=== PATIENT | male | born 1940 | race Caucasian/White ===

== ENCOUNTER → 2018-05-03 | Outpatient (CLI) | payer OTHER ==
[~2018-05-03] MED LIST: AMLO5TAB3 PO; ANT25 PO; ASPCH81X PO; ASPEC325 PO; ATV/1 PO; ATV5 PO; CALC600T9 PO; CETI10CH PO; CLB/200 PO; DICL75TA2 PO; DIPH25TA24 PO; HYDR-5688 PO; HYDUNK PO; OMEG10007 PO; OXYSR10 PO; POTA1TAB PO; PRAV20TA PO; PRLSR20 PO; TRAM-10 PO
[2018-05-03 17:41] LABS: HEMOGLOBIN 13.5 g/dL (14.0-18.0); MEAN CELL VOLUME 90.1 fL (80-100); MEAN CORPUSCULAR HEMOGLOBIN 31.2 pg (25-34); MEAN CORPUSCULAR HGB CONC 34.6 g/dl (32-36); MEAN PLATELET VOLUME 10.6 fL (7.4-10.4); PLATELET COUNT 229 K/uL (130-400); RED CELL DISTRIBUTION WIDTH CV 13.9 % (11.5-14.5); RED CELL DISTRIBUTION WIDTH SD 45.6 fL (36.4-46.3); WHITE BLOOD COUNT 7.72 K/uL (4.8-10.8)
[2018-05-03 17:50] LABS: PTT PATIENT 27.3 SECONDS (21.0-31.0)
[2018-05-03 18:01] LABS: BLOOD UREA NITROGEN 27 mg/dl (7-18); CALCIUM 8.8 mg/dl (8.5-10.1); CARBON DIOXIDE 29 mmol/L (21-32); CREATININE 1.12 mg/dl (0.60-1.40); GLUCOSE 94 mg/dl (70-99); POTASSIUM 3.2 mmol/L (3.5-5.1); SODIUM 136 mmol/L (136-145)
== END | disposition home or self-care (01) ==
LOC: C.LAB1850 17:04
PROVIDERS: ATTEND Physician Assistant
DX: Z01.812 Encounter for preprocedural laboratory examination (principal); I10 Essential (primary) hypertension; E78.5 Hyperlipidemia, unspecified; R07.9 Chest pain, unspecified

== ENCOUNTER → 2018-05-10 | Day surgery (SDC) | payer OTHER ==
[~2018-05-10] VITALS: Ht 167.6 cm; Wt 114.0 kg
[~2018-05-10] MED LIST changes: -ASPEC325 PO; -ATV5 PO; -DIPH25TA24 PO; +FENTANYL CITRATE INJ 50 MCG/1 ML 2 ML VIAL ONE; +HEPARIN SOD (PORCINE) 1000 UNIT/ML 10 ML VIAL ONE; -HYDR-5688 PO; +MIDAZOLAM HCL 1 MG/ML 2ML VIAL ONE; +NITROGLYCERIN/D5W 100MCG/ML 20ML SYR ONE; +NiCARDipine HCL INJ 2.5 MG/ML 10 ML AMP ONE; -OXYSR10 PO; -TRAM-10 PO
[2018-05-10 10:35] VITALS: BP 164/79; PULSE 81; TEMP 36.5; O2SAT 94; Ht 167.6 cm; Wt 114.0 kg
--- NOTE | 2018-05-10 10:47 | Pre Sedation Assessment ---
Pre Sedation Assessment General Date of Sedation: May 10, 2018. Vital Signs Past 12 Hours Date Time Temp Pulse Resp B/P (MAP) Pulse Ox O2 Delivery O2 Flow Rate FiO2 05/10/18 10:35 36.5 81 16 164/79 (107) 94 Room Air Review Cardiovascular: regular rate, rhythm, no edema Lungs: chest non-tender, lungs clear Pre-Sedation Airway Assessment Smoking Status: Former Smoker Hx of Sleep Apnea: Yes Hx of difficult intubation: No Short Thick Neck: No Thyro-mental Distance: > 3 Finger Breadths Oral Cavity: WNL Mallampati Classification: Class III ASA Classification: Class III NPO Status Date of Last Intake of Fluids: May 09, 2018 Time of Last Intake of Fluids: 2099 Date of Last Intake of Solids: May 09, 2018 Time of Last Intake of Solids: 2099 Procedure Planning Contraindications for Sedation: None Current Medications Reviewed: Yes Notes The planned sedation has been discussed with the patient. Informed Consent was obtained. I have identified the patient, determined the appropriateness of sedation and have assessed the patient immediately prior to the procedure. All medicine(s) and interventions are by my order.
--- NOTE | 2018-05-10 10:47 | History & Physical Bridge Note ---
H&P Re-Evaluation Bridge Note: I have examined the patient, reviewed the History & Physical and in the interval since the performance of the History & Physical I have noted the following changes of clinical significance: No changes noted
--- NOTE | 2018-05-10 12:10 | Post Sedation Assessment ---
Post Sedation Assessment General Date of Sedation May 10, 2018. Vital Signs: Vital Signs Past 12 Hours Date Time Temp Pulse Resp B/P (MAP) Pulse Ox O2 Delivery O2 Flow Rate FiO2 05/10/18 12:00 80 16 138/64 (88) 98 Room Air 05/10/18 11:50 82 16 138/64 (88) 98 Room Air 05/10/18 11:40 82 16 144/84 (104) 98 Room Air 05/10/18 11:35 93 16 139/81 (100) 98 Room Air 05/10/18 10:35 36.5 81 16 164/79 (107) 94 Room Air Post Procedure Recovery Score Activity: (2) Moves 4 extremities * Respiration: (2) Deep breath/cough Circulation: (2) +/-20% PreAnes Value Consciousness: (2) Fully Awake Oxygen Saturation: (2) > 92% On Room Air Post Anesthesia Score: 10 Discharge Sedation Level of Care: Fast Track Phase II Post Sedation Plan On clinical assessment, the patient appears to have tolerated the sedation without complications. Patient is recovering as anticipated. Patient will continue to be monitored by nursing and may be discharged when sedation discharge criteria are met per below protocol. Upon Completions of procedure and additional 15 minutes continue every 5 minute vital signs and the P.A.R. score; then discharge to a Phase I or Fast Track to Phase II per the following guidelines: * Discharge Patient to appropriate Phase II area if PAR is 8 or greater or return to pre- procedure baseline. The post - procedure orders will be as directed. * If PAR score is less than 8 or not return to pre-procedure baseline then patient will follow Phase I monitoring till PAR is reached for Phase II. The Phase I may be done in procedure room or may call to secure a Phase I area. * If naloxone or flumazenil are used for reversal, hold in Phase I for an additional 60 -120 minutes before discharge to Phase II. Please call the Sedation Physician to re-evaluate and complete post-note for discharge to Phase II area. Do NOT discharge from procedure sedation or Phase 1 until post- sedation evaluation note is complete by procedure /sedation MD Sedation Discharge Instructions to be given to the patient at discharge to home.
--- NOTE | 2018-05-10 12:18 | Cardiac Catheterization ---
Procedure Note Procedure Date May 10, 2018. Pre-Procedure Diagnosis Angina AUC Score 7 Post-Procedure Diagnosis Mild CAD Procedure(s) Performed Coronary Angiography, Left Heart Cath Healthcare Architect Jona Verification Rep(s) Quique Estimated Blood Loss 15 Medication(s) Fentanyl, Heparin, Nicardipine, Nitroglycerin, Versed, Lidocaine 1% Summary of Findings Indication: Suspected ACS Access: 6Fr right radial artery Catheters: Opheim; JL3.5, JR4 Findings: LM - Long vessel with luminal irregularities. LAD - Moderate caliber vessel, 20-30% mid segment disease at take-off of large 2nd diagonal; luminal irregularities in distal segment around apex. - 2nd diagonal with 40% ostial stenosis Circumflex - Moderate caliber vessel, gives off small OM1 and large OM2. No significant disease. RCA - Dominant, large caliber vessel, no significant disease. LVEDP - 3 Arterial Closure: TR Band Summary: 1. Mild to moderate non-obstructive coronary artery disease - 30% Mid LAD at bifurcation of 2nd diagonal with 30-40% ostial stenosis. 2. Normal intracardiac filling pressure Recommendations: Continued ASCVD risk factor modification Evaluate for non-cardiac cause of exertional dyspnea. Hemodynamics Rest Ao: 122/59/88 Final Ao: 136/63/95 LV: 114/3 Recommendations Medical therapy and/or Counseling Specimens None Radiation Exposure (mGy) 1921 Contrast (mls) 45 Fluids (cc crystalloids) 47 Drains none Anesthesia moderate Procedural Complication(s) None Disposition Fr[employer] Ad[employer]er Holding/Recovery ACC Data Cardiac Status Clinical evaluation leading to the procedure CAD Presntation: Unstable angina Anginal Classification: CCS III Heart Failure: No, NYHA Class: CCS I Cardiogenic Shock w/in 24Hrs: No Cardiac Arrest w/in 24Hrs: No Imaging studies past 6 months: No Stress studies past 6 months: No Closure Device Percutaneous Entry Location: Radial Closure Device: Radial Band Recommendations: Medical therapy and/or Counseling Intraprocedure Events Significant Dissection: No Perforation: No
--- NOTE | 2018-05-10 12:22 | Discharge Instructions ---
Discharge Instructions Procedure Procedure Date: May 10, 2018. Reason for Visit: Exertional Chest Pain Ashley. Discharge Discharge Date: May 10, 2018. Discharge Diagnosis: Mild coronary artery disease Last Recorded Wt (Kilograms): 114 Anesthesia Post Anesthesia Instructions: If you have had General Anesthesia or IV Sedation: * Do not drive today. * Resume driving when surgeon permits. * Do not make important decisions or sign legal documents today. * Call surgeon for: 1. Temperature elevations greater than 101 degrees F. 2. Uncontrollable pain. 3. Excessive bleeding. 4. Persistent nausea and vomiting. 5. Medication intolerance (nausea, vomiting or rash). * For nausea and vomiting use only clear liquids such as: tea, soda, bouillon until nausea subsides, then gradually increase diet as tolerated. * If you have any concerns or questions, call your surgeon's office. If physician is unavailable and it is an emergency, call 911 or go to the nearest emergency room. Instructions Activity Recommendations: limitations as noted below Recommended Home Diet: resume previous diet Allergies: Coded Allergies: Alendronate (Unverified Allergy, Unknown, HIVES, 05/10/18) Tamsulosin (Unverified Allergy, Unknown, HIVES, 05/10/18) Lovastatin (Verified Adverse Reaction, Mild, DIZZINESS, 05/15/11) Simvastatin (Verified Adverse Reaction, Mild, DIZZINESS, 05/15/11) Zolpidem (Verified Adverse Reaction, Mild, dizziness, 02/19/14) Follow Up Additional Instructions: ACTIVITY RECOMMENDATIONS: Excess manipulation of the wrist should be avoided for the next 24-48 hours. * No lifting over 2 pounds (approximately a 1/2 gallon of milk) with the utilized arm for 24 hours. * No strenuous activity such as bowling or tennis for 3 days. * Keep the site of the procedure covered with a bandage for 24 hours. *You may shower the day after the procedure. Do not take a tub bath or submerge the puncture site in water for the next 3 days. *Do not operate any motorized equipment for 3 days. SPECIAL CARE INSTRUCTIONS: The site may be slightly bruised and sore following your procedure. Should any of the following occur, contact the Dr. who performed your procedure. 1. Redness/inflammation, swelling, chills, or fever, or colored drainage at procedure site within 3-7 days after your procedure. 2. Coldness, discoloration, ongoing numbness, severe pain, or swelling. Expect mild tingling of hand and tenderness at the puncture site for up to three days. If this persists beyond three days, or other symptoms develop, notify the Dr. who performed your procedure. BLEEDING: If the procedure site on your wrist begins to bleed, do not panic 1. Place 1 or 2 fingers firmly just slightly above the insertion site to stop the bleeding. You may be able to feel your pulse as you hold pressure. 2. Lift your finger after 5 minutes to see if the bleeding has stopped. 3. Once the bleeding has stopped, gently wipe the wrist area clean with a bandage. * If the bleeding from your wrist does not stop after 10 minutes, or if there is a large amount of bleeding or spurting, call 911 (do not drive yourself to the hospital). SKIN IRRITATION: * You may experience some redness and/or swelling in the area where radiation was administered. If any skin irritation occurs, please contact your family physician. FOLLOW UP VISIT: Keep any scheduled doctor appointments. Follow-up with: Follow-up with Dr. Tenorio in 2-3 months [facility] Recommendations: Call your doctor if: * Temperature above 101 degrees * Pain not relieved by pain medicine ordered * There is increased drainage or redness from any incision * You have any unanswered questions or concerns. Your Doctors Instructions noted above were prepared by provider Charles Tenorio. Patient Signature Section: Patient Instructions Signature Page [place] Patient (or Guardian) Signature/Date: I have read and understand the instructions given to me by my caregivers. Caregiver/RN/Doctor Signature/Date: The above-named patient and/or guardian has received patient instructions on this date. + Original Patient Signature Page (only) stays with chart. Please make copy for patient.
[2018-05-10 14:30] VITALS: BP 133/84; PULSE 70; O2SAT 98
== END | disposition home or self-care (01) ==
LOC: C.CATH 09:32
PROVIDERS: ATTEND Internal Medicine Interventional Cardiology
DX: I10 Essential (primary) hypertension (principal); I45.4 Nonspecific intraventricular block; R07.9 Chest pain, unspecified; E78.5 Hyperlipidemia, unspecified; K21.0 Gastro-esophageal reflux disease with esophagitis; G47.33 Obstructive sleep apnea (adult) (pediatric); Z87.891 Personal history of nicotine dependence; Z79.82 Long term (current) use of aspirin; Z88.7 Allergy status to serum and vaccine; Z88.8 Allergy status to other drugs, medicaments and biological substances

== ENCOUNTER 2020-11-09 09:20 | Inpatient (IN) ==
--- NOTE | 2020-11-09 09:37 | Emergency Department Note ---
Impression & Plan Syncope, Vertigo, Ataxia ED Provider Note NAME: LANCE JULIAN JR AGE: 80 SEX: M : 1940 ARRIVES VIA: Ambulance INFORMANT: Patient, ED PROVIDER(S): Haroldo Weber DO CHIEF COMPLAINT: Vertigo HPI: The patient is an 80-year-old male who is a history of atrial fibrillation who presented to the emergency department for an evaluation of weakness and syncope. The patient states that he has been having vertigo symptoms over the course of the last week. He states that he has a history of vertigo in the past but this episode appears much worse. The patient states he is having trouble ambulating and feels though he is walking off balance. He also notices significant nausea as well as room spinning. Yesterday he had an episode of syncope. He states he was getting up to change the temperature in the thermostat and he ended up on the floor. He does not remember any specific syncope but this was not witnessed. The patient denies having a headache at this time. He denies having any weakness in the arms or legs. He also complains of some dizziness upon standing as well as near syncope. The patient is noticed no black or bloody bowel movements. He has no chest pain or difficulty breathing. The patient has an appointment with his doctor this and was going to wait to be seen at that time. He presented today because of the symptoms. The patient arrived via ambulance. ROS: See above HPI for pertinent positives & negatives. A total of 10 systems reviewed and were otherwise negative. PAST MEDICAL HISTORY: See Below PAST SURGICAL HISTORY: See Below FAMILY HISTORY: See Below SOCIAL HISTORY: See Below HOME MEDICATIONS: See Below ALLERGIES: See Below VITALS: See Below PHYSICAL EXAMINATION: GENERAL: Patient is awake alert in no acute distress patient is resting comfor tably and showing no signs of anxiety EYES: The conjunctivae are clear. The pupils are round and reactive. EARS, NOSE, MOUTH AND THROAT: The nose is without any evidence of any deformity. NECK: The neck is nontender and supple. RESPIRATORY: Normal respiratory effort is noted there is no evidence of wheezing rhonchi or rales CARDIOVASCULAR: Irregular rhythm was noted to auscultation. No definite murmur was noted to auscultation. GASTROINTESTINAL: The abdomen is soft. Abdomen is nontender. MUSCULOSKELETAL/EXTREMITIES: There is no evidence of gross deformity full range of motion is noted in the hips and shoulders. SKIN: There is no obvious evidence of any rash. There are no petechiae, pallor or cyanosis noted. NEUROLOGIC: Patient is awake alert and oriented x3 strength is symmetric reinoso llar reflexes are 2+ bilaterally. No facial droop was noted. MEDICAL DECISION MAKING: The patient is an 80-year-old male who presented to the emergency department by ambulance for vertigo and difficulty ambulating. The patient also had a syncopal episode yesterday. He was recently diagnosed with atrial fibrillation and started on blood thinners last month. I discussed the patient's laboratory and radiographic studies with him. He was treated with meclizine in the emergency department. He does not appear to have any definite central vertebrobasilar insufficiency or cause for his vertigo. The patient was attempting to ambulate and appeared to have some difficulty. He was not comfortable being discharged home when he felt that he would not have much support at home if he were to have another syncopal episode or fall. For this reason I [facility] They have agreed to evaluate the patient in the emergency department for further management and disposition. Triage Nursing notes reviewed. Prior medical records reviewed Vital Signs: reviewed and remarkable for no significant abnormalities Differential diagnosis: Benign positional vertigo, dehydration, hypovolemia, anemia, tumor, infection, hypoglycemia, electrolyte abnormalities, cardiac sources, intracerebral event, toxicologic, neurologic, as well as other pathologies. ER treatment provided: See below Diagnostics interpreted by me: ECG: EKG was obtained in the emergency department. My interpretation is atrial fibrillation at 80 bpm. No PVCs were noted. Left bundle branch block pattern was noted. This was compared to a tracing from January 072013. Atrial fibrillation has replaced sinus rhythm compared to the previous tracing. Otherwise no significant changes were noted. Cardiac Monitoring: An order was placed for continuous cardiac monitoring. The m onitor shows a rate of 82 bpm with atrial fibrillation rhythm. Laboratory studies: As stated above and show below. Imaging studies: See below Consultation(s): 1245: I discussed this case with Dr. Samuels who is [facility]. 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 Nonobstructive atherosclerosis of coronary artery 30% mid LAD per 05/2018 cardiac cath done to evaluate OLIVA Obesity Osteoarthritis Prostate cancer Reflux esophagitis Sciatica Skin cancer Both ears - uncertain of type Sleep apnea CPAP Surgical History Difficult airway for intubation H/O GLIDESCOPE 2010 Fatty tumor BACK AND HIP REMOVAL H/O endoscopic sinus surgery H/O Spinal surgery Lumbar spine "Removal of lumbar spine lamina" per pt 1976 H/O total knee replacement Left knee 2004 and right knee 2014 History of bunionectomy Right foot - 2000 History of cardiac cath 05/10/18 History of cataract surgery Bilateral 2007 History of cholecystectomy 1992 History of esophagogastroduodenoscopy (EGD) History of lumbosacral spine surgery History of prostate biopsy History of tooth extraction Hx of colonoscopy Hx of inguinal hernia surgery Right side:2000 S/P repair of hydrocele Left - 1994 S/P UPPP (uvulopalatopharyngoplasty) Family History Mother , at 86yo Breast cancer Bowel cancer Father , 82yo Atherosclerosis Peripheral vascular disease Sister Breast cancer Bowel cancer Cardiac arrhythmia Son No problems noted. Son No problems noted. 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 Beliefs That Will Affect Care: None marital status: Current Living Situation: Spouse current occupational status: retired current occupation: Worked for [employer] Feels Safe at Home: Yes caffeine: Yes (1 cup/day) during the past year weight has: remained stable Assistive Devices: CPAP Allergies Allergies Allergy/AdvReac Type Severity Reaction Status Date / Time finasteride Allergy Severe SOB Verified 11/09/20 10:52 alendronate sodium Allergy Intermediate HIVES Verified 11/09/20 10:52 Ivpzfih-Sbf-Etn Reductase Allergy Intermediate VERTIGO Verified 11/09/20 10:52 Inhibitor tamsulosin Allergy Intermediate HIVES Verified 11/09/20 10:52 adhesive Allergy Unknown Verified 11/09/20 10:52 egg Allergy Unknown Verified 11/09/20 10:52 influenza virus vaccine, Allergy Unknown Verified 11/09/20 10:52 specific zolpidem Allergy Unknown Verified 11/09/20 10:52 Home Meds Home Medications Medication Instructions Recorded Confirmed Zyrtec 1 cap PO QAM 01/20/19 11/09/20 celecoxib [Celebrex] 200 mg PO HS 01/20/19 11/09/20 omeprazole 20 mg PO HS 01/20/19 11/09/20 pravastatin 40 mg PO BID 01/20/19 11/09/20 zinc 50 mg PO QAM 01/20/19 11/09/20 ascorbic acid (vitamin C) 500 mg 1,000 mg PO QAM tab 06/13/19 11/09/20 tablet,extended release cholecalciferol (vitamin D3) 25 2,000 units PO QAM tab 06/13/19 11/09/20 mcg (1,000 unit) tablet omega 7-ymy-zgr-fish oil 1,000 mg 1 cap PO QAM cap 06/13/19 11/09/20 (120 mg-180 mg) capsule vitamin E (dl, acetate) 400 unit 400 units PO QAM 12/05/19 11/09/20 capsule alfuzosin 10 mg PO QAM 11/09/20 11/09/20 calcium carbonate-vitamin D3 1 tab PO QAM 11/09/20 11/09/20 [Calcium 600 + D(3)] cyanocobalamin (vitamin B-12) 2,500 mcg SUBLINGUAL QAM 11/09/20 11/09/20 [Vitamin B-12] Previous Rx's Medication Instructions Recorded amlodipine 10 mg tablet 10 mg PO QAM #90 tab 05/25/20 potassium chloride 20 mEq 20 meq PO QAM #90 tab 09/15/20 tablet,extended release meclizine 25 mg tablet 25 mg PO DAILY PRN #30 tab 09/23/20 apixaban 5 mg tablet 5 mg PO BID #60 tab 10/05/20 hydrochlorothiazide 25 mg tablet 25 mg PO QAM #90 tab 10/05/20 Results & Data (ED) Vital Signs Vital Signs - 24 hr 11/09/20 09:23 11/09/20 09:25 11/09/20 09:27 Temperature 36.9 C Temperature Source Oral Pulse Rate 80 79 82 Pulse Rate [Left] Pulse Rate from SpO2 Sensor Pulse Rhythm Regular Pulse Rhythm [Left] Pulse Strength Normal Pulse Strength [Left] Respiratory Rate 18 21 14 Respiratory Effort / Characteristics Non-Labored Spontaneous Respiratory Depth Normal Respiratory Pattern Regular Blood Pressure 146/62 H 146/62 H Blood Pressure [Left Arm] Blood Pressure Mean 90 90 Blood Pressure Mean [Left Arm] Blood Pressure Position Lying Blood Pressure Position [Left Arm] Pulse Oximetry 97 Oxygen Delivery Method Room Air Sepsis Recent Fever Within 48 Hours No Sepsis New/Unexplained Change in Mental Status N/A Sepsis Action Taken by Nursing No Action Required 11/09/20 09:30 11/09/20 10:00 11/09/20 10:25 Temperature Temperature Source Pulse Rate 77 68 73 Pulse Rate [Left] Pulse Rate from SpO2 Sensor 74 69 72 Pulse Rhythm Pulse Rhythm [Left] Pulse Strength Pulse Strength [Left] Respiratory Rate 19 16 19 Respiratory Effort / Characteristics Respiratory Depth Respiratory Pattern Blood Pressure 134/69 131/78 141/70 H Blood Pressure [Left Arm] Blood Pressure Mean 90 95 93 Blood Pressure Mean [Left Arm] Blood Pressure Position Blood Pressure Position [Left Arm] Pulse Oximetry 97 97 94 Oxygen Delivery Method Sepsis Recent Fever Within 48 Hours Sepsis New/Unexplained Change in Mental Status Sepsis Action Taken by Nursing 11/09/20 10:26 11/09/20 10:30 11/09/20 11:00 Temperature Temperature Source Pulse Rate 73 71 Pulse Rate [Left] 73 Pulse Rate from SpO2 Sensor 77 Pulse Rhythm Pulse Rhythm [Left] Regular Pulse Strength Pulse Strength [Left] Normal Respiratory Rate 18 14 18 Respiratory Effort / Characteristics Non-Labored Spontaneous Respiratory Depth Normal Respiratory Pattern Blood Pressure 130/83 Blood Pressure [Left Arm] 141/70 H Blood Pressure Mean 98 Blood Pressure Mean [Left Arm] 93 Blood Pressure Position Blood Pressure Position [Left Arm] Lying Pulse Oximetry 95 96 Oxygen Delivery Method Room Air Sepsis Recent Fever Within 48 Hours Sepsis New/Unexplained Change in Mental Status Sepsis Action Taken by Nursing 11/09/20 11:30 11/09/20 12:00 11/09/20 12:30 Temperature Temperature Source Pulse Rate 71 67 77 Pulse Rate [Left] 83 Pulse Rate from SpO2 Sensor Pulse Rhythm Pulse Rhythm [Left] Pulse Strength Pulse Strength [Left] Respiratory Rate 17 16 16 Respiratory Effort / Characteristics Respiratory Depth Respiratory Pattern Blood Pressure Blood Pressure [Left Arm] 133/81 Blood Pressure Mean Blood Pressure Mean [Left Arm] 98 Blood Pressure Position Blood Pressure Position [Left Arm] Pulse Oximetry 97 Oxygen Delivery Method Room Air Sepsis Recent Fever Within 48 Hours Sepsis New/Unexplained Change in Mental Status Sepsis Action Taken by Nursing 11/09/20 13:00 Temperature Temperature Source Pulse Rate 73 Pulse Rate [Left] Pulse Rate from SpO2 Sensor Pulse Rhythm Pulse Rhythm [Left] Pulse Strength Pulse Strength [Left] Respiratory Rate 16 Respiratory Effort / Characteristics Respiratory Depth Respiratory Pattern Blood Pressure Blood Pressure [Left Arm] Blood Pressure Mean Blood Pressure Mean [Left Arm] Blood Pressure Position Blood Pressure Position [Left Arm] Pulse Oximetry Oxygen Delivery Method Sepsis Recent Fever Within 48 Hours Sepsis New/Unexplained Change in Mental Status Sepsis Action Taken by Detention Medications Current Medication List: was personally reviewed by me Laboratory Data Attestation: I reviewed the patient's lab results. Result diagrams: 11/09/20 09:29 11/09/20 09:30 Lab Results 11/09/20 11/09/20 11/09/20 Range/Units 09:29 09:29 09:30 WBC 7.33 (4.8-10.8) K/uL RBC 3.98 L (4.7-6.1) M/uL Hgb 12.7 L (14.0-18.0) g/dL Hct 36.6 L (42-52) % MCV 92.0 (80-100) fL MCH 31.9 (25-34) pg MCHC 34.7 (32-36) g/dL RDW Std Deviation 47.9 H (36.4-46.3) fL RDW Coeff of Mauri 14.2 (11.5-14.5) % Plt Count 209 (130-400) K/uL MPV 10.6 H (7.4-10.4) fL Immature Gran % (Auto) 0.1 % Neut % (Auto) 78.3 % Lymph % (Auto) 12.7 % [place] % (Auto) 7.2 % Eos % (Auto) 1.6 % Baso % (Auto) 0.1 % Neut # (Auto) 5.73 (1.4-6.5) K/uL Lymph # (Auto) 0.93 L (1.2-3.4) K/uL [place] # (Auto) 0.53 (0.11-0.59) K/uL Eos # (Auto) 0.12 (0-0.5) K/uL Baso # (Auto) 0.01 (0-0.2) K/uL Immature Gran # (Auto) 0.01 (0.00-0.02) K/uL PT 10.9 (9.0-12.0) Seconds INR 1.0 (0.9-1.1) APTT 30.0 (21.0-31.0) Seconds PTT Ratio 1.1 Sodium 140 (136-145) mmol/L Potassium 3.4 L (3.5-5.1) mmol/L Chloride 106 (98-107) mmol/L Carbon Dioxide 27 (21-32) mmol/L Anion Gap 7.0 (3-11) BUN 25 H (7-18) mg/dl Creatinine 1.11 (0.6-1.4) mg/dl Est Cr Clr Drug Dosing 62.9 ml/min Est GFR ( Amer) 71.8 Est GFR (Non-Af Amer) 61.9 BUN/Creatinine Ratio 22.4 H (10-20) Glucose 120 H (70-99) mg/dl Calcium 9.4 (8.5-10.1) mg/dl Magnesium 2.0 (1.8-2.4) mg/dl Total Bilirubin 0.4 (0.2-1) mg/dl AST 16 (15-37) U/L ALT 25 (12-78) U/L Alkaline Phosphatase 110 (45-117) U/L Troponin I < 0.015 (0-0.045) ng/ml Total Protein 7.3 (6.4-8.2) gm/dl Albumin 3.5 (3.4-5.0) gm/dl Globulin 3.8 (2.5-4.0) gm/dl Albumin/Globulin Ratio 0.9 (0.9-2) COVID-19 Eval Order SARS-CoV-2, RNA, NAAT (NEGATIVE) 11/09/20 11/09/20 Range/Units 13:00 13:00 WBC (4.8-10.8) K/uL RBC (4.7-6.1) M/uL Hgb (14.0-18.0) g/dL Hct (42-52) % MCV (80-100) fL MCH (25-34) pg MCHC (32-36) g/dL RDW Std Deviation (36.4-46.3) fL RDW Coeff of Mauri (11.5-14.5) % Plt Count (130-400) K/uL MPV (7.4-10.4) fL Immature Gran % (Auto) % Neut % (Auto) % Lymph % (Auto) % [place] % (Auto) % Eos % (Auto) % Baso % (Auto) % Neut # (Auto) (1.4-6.5) K/uL Lymph # (Auto) (1.2-3.4) K/uL [place] # (Auto) (0.11-0.59) K/uL Eos # (Auto) (0-0.5) K/uL Baso # (Auto) (0-0.2) K/uL Immature Gran # (Auto) (0.00-0.02) K/uL PT (9.0-12.0) Seconds INR (0.9-1.1) APTT (21.0-31.0) Seconds PTT Ratio Sodium (136-145) mmol/L Potassium (3.5-5.1) mmol/L Chloride (98-107) mmol/L Carbon Dioxide (21-32) mmol/L Anion Gap (3-11) BUN (7-18) mg/dl Creatinine (0.6-1.4) mg/dl Est Cr Clr Drug Dosing ml/min Est GFR ( Amer) Est GFR (Non-Af Amer) BUN/Creatinine Ratio (10-20) Glucose (70-99) mg/dl Calcium (8.5-10.1) mg/dl Magnesium (1.8-2.4) mg/dl Total Bilirubin (0.2-1) mg/dl AST (15-37) U/L ALT (12-78) U/L Alkaline Phosphatase (45-117) U/L Troponin I (0-0.045) ng/ml Total Protein (6.4-8.2) gm/dl Albumin (3.4-5.0) gm/dl Globulin (2.5-4.0) gm/dl Albumin/Globulin Ratio (0.9-2) COVID-19 Eval Order Covid19 [facility]Now [facility] SARS-CoV-2, RNA, NAAT NEGATIVE (NEGATIVE) Administered Medications Discontinued Medications Ioversol (Optiray 320 125ml) 120 ml IV ONCE ONE Stop: 11/09/20 10:16 Last Admin: 11/09/20 10:15 Dose: 120 ml Documented by: [id number] Meclizine HCl (Meclizine Hcl 25 Mg Tab) 25 mg PO NOW STA Stop: 11/09/20 10:47 Last Admin: 11/09/20 11:07 Dose: 25 mg Documented by: [id number] Imaging Data Radiologist's Impression: Patient: LANCE JULIAN JR Admit Date: 11/09/20 MR#: [id number] Address1: [address] [place] [address] [address] Acct ID:[id number] Address2: Date: 1940 [facility] Zip: [place] [address] Age: 80 Location: ED Sex: M Room/Bed: Att Phy: Diagnosis: weakness Paulette Phy: Eliu Manriquez DO Service Date: 11/09/20 Fam Phy: Interpreting Phy: Harjeet Jacques MD Admit Phy: Ordering Phy: Haroldo Weber DO cc: ~ CT ANGIOGRAPHY OF THE NECK WITH CONTRAST CLINICAL HISTORY: Stroke Like Symptoms COMPARISON STUDY: No previous studies for comparison. Technique: CT angiography of the carotid and vertebral arteries was obtained using Optiray 320 IV and 3D reconstruction on an independent workstation. NASCET criteria was utilized. Automated exposure control was utilized for the study. A dose lowering technique was utilized adhering to the principles of ALARA. CT DOSE: 1468.09 mGy.cm Findings: The bilateral common carotid, cervical internal carotid and vertebral arteries are patent. There is no stenosis within these vessels. Moderate plaque is noted within the aortic arch and the bilateral carotid bifurcations. There is no intraluminal thrombus. Left vertebral artery is dominant. Right vertebral artery is diminutive on a congenital basis. The right vertebral artery ends in PICA. Emphysema is noted within the lung apices. There is no cervical lymphadenopathy. Multilevel degenerative changes within the cervical spine are noted. No acute fractures identified. IMPRESSION: 1. No stenosis or dissection within the major vessels of the neck. 2. Mild to moderate atherosclerotic plaque. 3. Emphysema ACT 112: Negative or not required by law. Electronically signed by: Harjeet Jacques M.D. 11/09/2020 10:34 AM Dictated: 11/09/20 1028 Transcribed: 11/09/20 1028 Patient: LANCE JULIAN JR Admit Date: 11/09/20 MR#: [id number] Address1: [address] Acct ID:[id number] Address2: Date: 1940 [facility] Zip: [place] [address] Age: 80 Location: ED Sex: M Room/Bed: Att Phy: Diagnosis: weakness Paulette Phy: Eliu Manriquez DO Service Date: 11/09/20 Fam Phy: Interpreting Phy: Joseph Siddiqui MD Admit Phy: Ordering Phy: Haroldo Weber DO cc: ~ HEAD CTA HISTORY: Stroke Like Symptoms TECHNIQUE: Multiaxial CT images of the head were performed following the intravenous administration of contrast to evaluate the major cerebral vessels. Maximum intensity projection images were also obtained. A dose lowering technique was utilized adhering to the principles of ALARA. COMPARISON: None. FINDINGS: Hypoplastic distal right vertebral artery in comparison to the left. The distal right vertebral artery terminates into the right posterior inferior cerebellar artery. This is considered to be a normal variant. The major dural venous sinuses appear patent. Mild calcified plaque within the bilateral carotid siphons. Dominant left RONEN. Visualized intracranial internal carotid arteries, distal vertebral arteries, and basilar artery are widely patent. There is no significant stenosis, occlusion, or aneurysm seen within the bilateral ACAs, MCAs, or technical adjuster. IMPRESSION: No significant stenosis, occlusion, or aneurysm within the atka of Ravi. ACT 112: Negative or not required by law. Electronically signed by: Joseph Siddiqui M.D. 11/09/2020 10:34 AM Dictated: 11/09/20 1028 Transcribed: 11/09/20 1028 Patient: LANCE JULIAN JR Admit Date: 11/09/20 MR#: [id number] Address1: [address] Acct ID:[id number] Address2: Date: 1940 [facility] Zip: [place] [address] Age: 80 Location: ED Sex: M Room/Bed: Att Phy: Diagnosis: weakness Paulette Phy: Eliu Manriquez DO Service Date: 11/09/20 Isac Phy: Interpreting Phy: Yasir Richard Admit Phy: Ordering Phy: Haroldo Weber DO cc: ~ CT head/brain wo con CLINICAL HISTORY: 80 years-old Male with Stroke Like Symptoms. Acute strokelike symptoms TECHNIQUE: Multiple axial CT images of the head were obtained without contrast. A dose lowering technique was utilized adhering to the principles of ALARA. COMPARISON: CTA head and neck of same day, bone scan 09/12/2018. FINDINGS: No acute intracranial hemorrhage, midline shift, intracranial mass, hydrocephalus, territorial ischemia or abnormal extra-axial collection. Mild age-related involutional changes. The calvarium is intact. Left mastoid air cells are clear. Right mastoid effusion. Partial ethmoidectomy changes. Unremarkable soft tissues. Prior bilateral lens replacement. IMPRESSION: No acute intracranial abnormality. ACT 112: Negative or not required by law. The above report was generated using voice recognition software. It may contain grammatical, syntax or spelling errors. Electronically signed by: Sae Richard M.D. 11/09/2020 10:33 AM Dictated: 11/09/20 1026 Transcribed: 11/09/20 1026 Patient: LANCE JULIAN JR Admit Date: 11/09/20 MR#: [id number] Address1: [address] [place] [address] [address] Acct ID:[id number] Address2: Date: 1940 [facility] Zip: [place] [address] Age: 80 Location: ED Sex: M Room/Bed: Att Phy: Diagnosis: weakness Paulette Phy: Eliu Manriquez DO Service Date: 11/09/20 Isac Phy: Interpreting Phy: Harjeet Jacques MD Admit Phy: Ordering Phy: Haroldo Weber DO cc: ~ XR chest 1V portable CLINICAL HISTORY: Stroke Like Symptoms COMPARISON STUDY: Chest radiograph January 22, 2019. FINDINGS: Lung volumes are normal. There is no pneumothorax or pleural effusion. Note is made of cardiomegaly. There is no evidence for pulmonary edema. No consolidation is identified. IMPRESSION: No acute cardiopulmonary findings. Cardiomegaly. ACT 112: Negative or not required by law. Electronically signed by: Harjeet Jacques M.D. 11/09/2020 9:44 AM Dictated: 11/09/20942 Transcribed: 11/09/20942 Blood Pressure Blood Pressure Findings: Normal blood pressure Discharge Plan Visit Data Chief Complaint: Weakness ED Provider: Haroldo Wbeer Discharge Problem: Syncope, Vertigo, Ataxia Patient Disposition: Being Evaluated by Hospitalist Condition: Good Forms Stand Alone Forms: [facility] Prescriptions Prescriptions: No Action ascorbic acid (vitamin C) 500 mg tablet extended release 1,000 mg PO QAM RF: 0 vitamin E (dl, acetate) 400 unit capsule 400 units PO QAM RF: 0 amlodipine 10 mg tablet 10 mg PO QAM Qty: 90 RF: 3 potassium chloride 20 mEq tablet extended release 20 meq PO QAM Qty: 90 RF: 3 hydrochlorothiazide 25 mg tablet 25 mg PO QAM Qty: 90 RF: 3 Eliquis 5 mg tablet 5 mg PO BID Qty: 60 RF: 2 meclizine 25 mg tablet 25 mg PO DAILY PRN (Reason: Vertigo) Qty: 30 RF: 0 cyanocobalamin (vitamin B-12) [Vitamin B-12] 2,500 mcg Tablet, Sublingual 2,500 mcg SUBLINGUAL QAM RF: 0 calcium carbonate-vitamin D3 [Calcium 600 + D(3)] 600 mg(1,500mg) -200 unit Tablet 1 tab PO QAM RF: 0 alfuzosin 10 mg tablet extended release 24 hr 10 mg PO QAM RF: 0 celecoxib [Celebrex] 200 mg Capsule 200 mg PO HS RF: 0 pravastatin 40 mg Tablet 40 mg PO BID RF: 0 zinc 50 mg Tablet 50 mg PO QAM RF: 0 omeprazole 20 mg Tablet,Delayed Release (Dr/Ec) 20 mg PO HS RF: 0 Zyrtec 10 mg Capsule 1 cap PO QAM RF: 0 cholecalciferol (vitamin D3) [Vitamin D3] 1,000 unit (25 mcg) tablet 2,000 units PO QAM RF: 0 omega 8-lkj-jzi-fish oil [Fish Oil] 1,000 mg (120 mg-180 mg) capsule 1 cap PO QAM RF: 0 Referrals Referrals: Eliu Manriquez DO [Primary Care Provider] -
[2020-11-09 09:38] LABS: Basophils # (auto) 0.01 K/uL (0-0.2); Basophils % (auto) 0.1 %; Eosinophils # (auto) 0.12 K/uL (0-0.5); Eosinophils % (auto) 1.6 %; Hematocrit (blood only) 36.6 % (42-52); Hemoglobin 12.7 g/dL (14.0-18.0); Immature Granulocytes # (auto) 0.01 K/uL (0.00-0.02); Immature Granulocytes % (auto) 0.1 %; Lymphocytes # (auto) 0.93 K/uL (1.2-3.4); Lymphocytes % (auto) 12.7 %; Mean Corpuscular Hemoglobin 31.9 pg (25-34); Mean Corpuscular Hgb Conc 34.7 g/dL (32-36); Mean Platelet Volume 10.6 fL (7.4-10.4); Monocytes # (auto) 0.53 K/uL (0.11-0.59); Monocytes % (auto) 7.2 %; Neutrophils # (auto) 5.73 K/uL (1.4-6.5); Neutrophils % (auto) 78.3 %; Platelet Count 209 K/uL (130-400); RDW Coefficient of Variation 14.2 % (11.5-14.5); RDW Standard Deviation 47.9 fL (36.4-46.3); Red Blood Count 3.98 M/uL (4.7-6.1); White Blood Count 7.33 K/uL (4.8-10.8)
--- NOTE | 2020-11-09 09:46 | XRay Report ---
XR chest 1V portable CLINICAL HISTORY: Stroke Like Symptoms COMPARISON STUDY: Chest radiograph January 22, 2019. FINDINGS: Lung volumes are normal. There is no pneumothorax or pleural effusion. Note is made of card iomegaly. There is no evidence for pulmonary edema. No consolidation is identified. IMPRESSION: No acute cardiopulmonary findings. Cardiomegaly. ACT 112: Negative or not required by law. Electronically signed by: Harjeet Jacques M.D. 11/09/2020 9:44 AM
[2020-11-09 09:55] LABS: Alanine Aminotransferase 25 U/L (12-78); Albumin Level 3.5 gm/dl (3.4-5.0); Aspartate Aminotransferase 16 U/L (15-37); BUN Creatinine Ratio 22.4 (10-20); Blood Urea Nitrogen 25 mg/dl (7-18); Calcium 9.4 mg/dl (8.5-10.1); Carbon Dioxide 27 mmol/L (21-32); Chloride 106 mmol/L (98-107); Creatinine Clr Calc Pharmacy 62.9 ml/min; Est GFR (African American) 71.8; Est GFR (Non-African American) 61.9; Glucose 120 mg/dl (70-99); Potassium 3.4 mmol/L (3.5-5.1); Sodium 140 mmol/L (136-145)
[2020-11-09 09:58] LABS: Partial Thromboplastin Ratio 1.1; Prothrombin Time 10.9 Seconds (9.0-12.0)
[2020-11-09 10:00] LABS: Albumin Globulin Ratio 0.9 (0.9-2); Alkaline Phosphatase 110 U/L (45-117); Bilirubin,Total 0.4 mg/dl (0.2-1); Globulin 3.8 gm/dl (2.5-4.0); Total Protein 7.3 gm/dl (6.4-8.2); Troponin I < 0.015 ng/ml (0-0.045)
[2020-11-09] MEDS ORDERED: OPTIRAY 320 125ml IV ONE (10:15)
--- NOTE | 2020-11-09 10:34 | CT Scan Report ---
CT head/brain wo con CLINICAL HISTORY: 80 years-old Male with Stroke Like Symptoms. Acute strokelike symptoms TECHNIQUE: Multiple axial CT images of the head were obtained without contrast. A dose lowering tech nique was utilized adhering to the principles of ALARA. COMPARISON: CTA head and neck of same day, bone scan 09/12/2018. FINDINGS: No acute intracranial hemorrhage, midline shift, intracranial mass, hydrocephalus, territorial ischem ia or abnormal extra-axial collection. Mild age-related involutional changes. The calvarium is intact. Left mastoid air cells are clear. Right mastoid effusion. Partial ethmoidec deuce changes. Unremarkable soft tissues. Prior bilateral lens replacement. IMPRESSION: No acute intracranial abnormality. ACT 112: Negative or not required by law. The above report was generated using voice recognition software. It may contain grammatical, syntax o r spelling errors. Electronically signed by: Sae Richard M.D. 11/09/2020 10:33 AM
--- NOTE | 2020-11-09 10:35 | CT Scan Report ---
CT ANGIOGRAPHY OF THE NECK WITH CONTRAST CLINICAL HISTORY: Stroke Like Symptoms COMPARISON STUDY: No previous studies for comparison. Technique: CT angiography of the carotid and vertebral arteries was obtained using [employer] 320 IV and 3D reconstruction on an independent workstation. NASCET criteria was utilized. Automated exposure c ontrol was utilized for the study. A dose lowering technique was utilized adhering to the principles of ALARA. CT DOSE: 1468.09 mGy.cm Findings: The bilateral common carotid, cervical internal carotid and vertebral arteries are patent. There is no stenosis within these vessels. Moderate plaque is noted within the aortic arch and the bi lateral carotid bifurcations. There is no intraluminal thrombus. Left vertebral artery is dominant. R ight vertebral artery is diminutive on a congenital basis. The right vertebral artery ends in PICA. E mphysema is noted within the lung apices. There is no cervical lymphadenopathy. Multilevel degenerati ve changes within the cervical spine are noted. No acute fractures identified. IMPRESSION: 1. No stenosis or dissection within the major vessels of the neck. 2. Mild to moderate atherosclerotic plaque. 3. Emphysema ACT 112: Negative or not required by law. Electronically signed by: Harjeet Jacques M.D. 11/09/2020 10:34 AM
--- NOTE | 2020-11-09 10:36 | CT Scan Report ---
HEAD CTA HISTORY: Stroke Like Symptoms TECHNIQUE: Multiaxial CT images of the head were performed following the intravenous administration o f contrast to evaluate the major cerebral vessels. Maximum intensity projection images were also obta ined. A dose lowering technique was utilized adhering to the principles of ALARA. COMPARISON: None. FINDINGS: Hypoplastic distal right vertebral artery in comparison to the left. The distal right verte bral artery terminates into the right posterior inferior cerebellar artery. This is considered to be a normal variant. The major dural venous sinuses appear patent. Mild calcified plaque within the bila teral carotid siphons. Dominant left RONEN. Visualized intracranial internal carotid arteries, distal v ertebral arteries, and basilar artery are widely patent. 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 IMPRESSION: No significant stenosis, occlusion, or aneurysm within the [place] of Ravi. ACT 112: Negative or not required by law. Electronically signed by: Joseph Siddiqui M.D. 11/09/2020 10:34 AM
[2020-11-09] MEDS ORDERED: MECLIZINE HCL 25 MG TAB PO STA (10:46)
--- NOTE | 2020-11-09 12:34 | History & Physical Report ---
Date of Service November 09, 2020 Assessment & Plan (1) Vertigo: Mr. Schroeder is an 80 year old male with a history of Hypertension, Hyperlipidemia, Chronic LBBB, Mild CAD on Cardiac Catheterization 05/2018, JONAH s/p UPPP, GERD, Prostate Cancer, Osteoarthritis, and recently diagnosed Atrial Fibrill ation(09/2020) who presented to [facility] ER with Vertigo over the past 2 to 3 weeks which most likely represents BPPV, however he does exhibit slow and unsure movement on finger to nose testing. This appears to be symmetric. He describes the"room spinning" when he changes body position or suddenly changes his head position. He initially had just woken up and was turning to get up and out of bed. He states that he has trouble walking in a straight line. The other day, he changed the setting on the thermostat, and when he turned to walk away he experience significant vertigo which caused him to fall onto his right side. He has an abrasion on his right elbow and his right lower chest and upper abdomen are sore, although there is no evidence of bruising. Patient denies any syncope, near-syncope, lightheadedness, or loss of consciousness. 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 In the past, he was prescribed meclizine for his vertigo. He has been using meclizine once daily over the past several days, and his vertigo gets better, but does not completely resolve with meclizine. -- Admit to Med-Surg with telemetry. -- Recommend MRI of the Brain to rule out cerebellar CVA. -- Continue Meclizine 25 mg q6H as needed for vertigo. -- Neurology consultation ordered. -- Neuro checks. -- Fall precautions. -- Physical therapy evaluation and treatment, Dx Vertigo. (2) Unspecified atrial fibrillation: -- Patient was diagnosed with Atrial Fibrillation in September 2020. -- Asymptomatic and rate controlled. -- Eliquis 5 mg b.i.d. was started 4 weeks ago. -- [id number] is 3. -- Patient has not missed any doses of his blood thinner. (3) Hypertension: -- Blood pressure appears to be under reasonable control. -- Continue Amlodipine 10 mg daily. -- Continue Hydrochlorothiazide 25 mg daily. -- Give extra dose of Potassium Chloride today due to mild hypokalemia. (4) Hyperlipidemia: -- Continue Pravastatin 40 mg b.i.d.. -- Heart healthy diet. History of Present Illness Chief Complaint: -- Vertigo. Primary Care Provider: Eliu Manriquez DO Mr. Schroeder is an 80 year old male with a history of Hypertension, Hyperlipidemia, Chronic LBBB, Mild CAD on Cardiac Catheterization 05/2018, JONAH s/p UPPP, GERD, Prostate Cancer, Osteoarthritis, and recently diagnosed Atrial Fibrillation(09/2020) who presented to [facility] ER with vertigo over the past 2 to 3 weeks. He describes the"room spinning" when he changes body position or suddenly changes his head position. He initially had just woken up and was turning to get up and out of bed. He states that he has trouble walking in a straight line. The other day, he changed the setting on the thermostat, and when he turned to walk away he experience significant vertigo which caused him to fall onto his right side. He has an abrasion on his right elbow when his right lower chest and upper abdomen are sore, although there is no evidence of bruising. Patient denies any syncope, near-syncope, lightheadedness, or loss of consciousness. 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 In the past, he was prescribed meclizine for his vertigo. He has been using meclizine once daily over the past several days, and his vertigo gets better, but does not completely resolve with meclizine. Patient was done fibrillation in September 2020. He was asymptomatic with it, and his heart rate was well controlled. He was started on Eliquis approximately 4 weeks ago due to his elevated [id number] of 3. Patient has not missed any doses of his blood thinner. As a matter fact, he was concerned that the blood thinner may be causing his vertigo. I have reassured him that is not the case. Patient offers no other complaints. He denies any headache, stiff neck, visual disturbance, blind spots, black spots, loss of visual calderon. He denies any weakness, numbness, tingling, or paralysis of any extremities. He has not had any loss an bowel or bladder control. He does admit to hearing loss due to working with loud machinery in the past. He does not have any recent hearing loss, and he denies any tinnitus. He denies any upper respiratory tract symptoms. He denies any chest pain or shortness of breath. He does admit to an occasional skipped heartbeat, but does not have any sensation of palpitations otherwise, nor has he had any perceived tachy-palpitations. Patient does admit to being under a lot of stress lately. He is taking care of his who has hypercapnic respiratory failure. She has been in an out of the hospital and rehabilitation facilities lately. Allergies Allergy/AdvReac Type Severity Reaction Status Date / Time finasteride Allergy Severe SOB Verified 11/09/20 10:52 alendronate sodium Allergy Intermediate HIVES Verified 11/09/20 10:52 Rfulvol-Elm-Pxz Reductase Allergy Intermediate VERTIGO Verified 11/09/20 10:52 Inhibitor tamsulosin Allergy Intermediate HIVES Verified 11/09/20 10:52 adhesive Allergy Unknown Verified 11/09/20 10:52 egg Allergy Unknown Verified 11/09/20 10:52 influenza virus vaccine, Allergy Unknown Verified 11/09/20 10:52 specific zolpidem Allergy Unknown Verified 11/09/20 10:52 Home Medications Medication Instructions Recorded Confirmed Type Zyrtec 1 cap PO QAM 01/20/19 11/09/20 History celecoxib [Celebrex] 200 mg PO HS 01/20/19 11/09/20 History omeprazole 20 mg PO HS 01/20/19 11/09/20 History pravastatin 40 mg PO BID 01/20/19 11/09/20 History zinc 50 mg PO QAM 01/20/19 11/09/20 History ascorbic acid (vitamin C) 500 mg 1,000 mg PO QAM tab 06/13/19 11/09/20 History tablet,extended release cholecalciferol (vitamin D3) 25 2,000 units PO QAM tab 06/13/19 11/09/20 History mcg (1,000 unit) tablet omega 6-mcu-ftu-fish oil 1,000 mg 1 cap PO QAM cap 06/13/19 11/09/20 History (120 mg-180 mg) capsule vitamin E (dl, acetate) 400 unit 400 units PO QAM 12/05/19 11/09/20 History capsule amlodipine 10 mg tablet 10 mg PO QAM #90 tab 05/25/20 11/09/20 Rx potassium chloride 20 mEq 20 meq PO QAM #90 tab 09/15/20 11/09/20 Rx tablet,extended release apixaban 5 mg tablet 5 mg PO BID #60 tab 10/05/20 11/09/20 Rx hydrochlorothiazide 25 mg tablet 25 mg PO QAM #90 tab 10/05/20 11/09/20 Rx alfuzosin 10 mg PO QAM 11/09/20 11/09/20 History calcium carbonate-vitamin D3 1 tab PO QAM 11/09/20 11/09/20 History [Calcium 600 + D(3)] cyanocobalamin (vitamin B-12) 2,500 mcg SUBLINGUAL QAM 11/09/20 11/09/20 History [Vitamin B-12] amoxicillin-pot clavulanate 1 tab PO BID #20 tab 11/10/20 Rx [Augmentin] fluticasone propionate [Flonase 1 spray INTRANASAL BID #9.9 ml 11/10/20 Rx Allergy Relief] meclizine 25 mg PO BID PRN #30 tab 11/10/20 Rx 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 Nonobstructive atherosclerosis of coronary artery 30% mid LAD per 05/2018 cardiac cath done to evaluate OLIVA Obesity Osteoarthritis Prostate cancer Reflux esophagitis Sciatica Skin cancer Both ears - uncertain of type Sleep apnea CPAP Surgical History Difficult airway for intubation H/O GLIDESCOPE 2010 Fatty tumor BACK AND HIP REMOVAL H/O endoscopic sinus surgery H/O Spinal surgery Lumbar spine "Removal of lumbar spine lamina" per pt 1976 H/O total knee replacement Left knee 2005 and right knee 2014 History of bunionectomy Right foot - 2000 History of cardiac cath 05/10/18 History of cataract surgery Bilateral 2007 History of cholecystectomy 1993 History of esophagogastroduodenoscopy (EGD) History of lumbosacral spine surgery History of prostate biopsy History of tooth extraction Hx of colonoscopy Hx of inguinal hernia surgery Right side:2000 S/P repair of hydrocele Left - 1994 S/P UPPP (uvulopalatopharyngoplasty) Family History Mother , at 86yo Breast cancer Bowel cancer Father , 82yo Atherosclerosis Peripheral vascular disease Sister Breast cancer Bowel cancer Cardiac arrhythmia Son No problems noted. Son No problems noted. Daughter Anal cancer Social History Smoking Status: Former smoker Cigarettes Per Day: 3 PPD x 50 yrs;; Second Hand Exposure: No; Do You Dip or Chew Tobacco: No; Tobacco Cessation Education Requested by Patient: No Hx Alcohol Use: Yes Alcohol type: wine Hx Substance Use: No Preferred Language: Romanian Communication Ability: Effective Visual Impairment: No Limitations Hearing Ability: Use of Hearing Aid (Bilateral hearing aids at home;) Finish Filer Required: No Beliefs That Will Affect Care: None marital status: Current Living Situation: Spouse current occupational status: retired current occupation: Worked for [employer] Other Information That Helps Us Care for You: No Feels Safe at Home: Yes Safety Concerns: Feels Safe At This Time caffeine: Yes (1 cup/day) during the past year weight has: remained stable Assistive Devices: None Physical Exam Physical Exam: GENERAL: Patient in no acute distress. HEENT: Head is atraumatic, normocephalic. EOM's intact, no nystagmus. Facies symmetric. No perioral cyanosis. Ear canals with ceruminous debris. NECK: No JVD. JVP is at the level of the clavicle sitting upright. Carotid upstrokes are + 2 bilaterally. No bruits are noted. CHEST/LUNGS: Clear to auscultation throughout all lung calderon. No wheezes, rales, or crackles. CVS: S1 and S2 are irregularly irregular with an apical rate of 74 bpm. No obvious murmurs, gallops, or rubs. PMI is nondisplaced. No lifts, heaves, or thrills. No abdominal aortic or renal bruits. ABDOMINAL EXAM: Bowel sounds are present. No masses, organomegaly, or tenderness. EXTREMITIES: No clubbing or cyanosis. Trace pretibial edema bilaterally. Intact radial pulses bilaterally. NEUROLOGIC EXAM: Patient is awake, alert, and oriented. Pleasant and cooperative. Answers questions appropriately. Speech is clear. Normal strength in the major muscle groups of bilateral upper and lower extremities to manual muscle testing. Primary Special Education Teacher strength equal bilaterally. Patient was slow bilaterally with finger to nose but it appeared symmetric. Gait pattern was not assessed. Brain MRI is ordered. ECHOCARDIOGRAM 10/14/2020: -- Normal LV size, mild concentric LVH. -- LVEF 45% to 50%, abnormal septal motion consistent with bundle branch block. -- Normal RV size and systolic function. -- Grade II LV diastolic dysfunction. -- Mild to moderate mitral regurgitation. -- Moderate left atrial enlargement. -- Normal estimated RA and PA pressures. Smalltalk Developer: -- Rate controlled atrial fibrillation with a rate in the mid 70s. -- IVCD is present. EKG 11/09/2020: -- Atrial fibrillation with an LBBB pattern. -- V-rate is 80 bpm. -- Compared to EKG dated 01/07/2014 -- atrial fibrillation has replaced sinus rhythm. Results & Data Results & Data ([facility]) Vital Signs (Past 12 Hours) Vital Signs Temp Pulse Pulse Resp BP BP Pulse Ox 11/09/20 10:26 73 18 141/70 H 95 11/09/20 09:23 36.9 C 80 18 146/62 H 97 Laboratory Results Laboratory Results - last 24 hr 11/09/20 11/09/20 11/09/20 09:29 09:29 09:30 WBC 7.33 RBC 3.98 L Hgb 12.7 L Hct 36.6 L MCV 92.0 MCH 31.9 MCHC 34.7 RDW Std Deviation 47.9 H RDW Coeff of Mauri 14.2 Plt Count 209 MPV 10.6 H Immature Gran % (Auto) 0.1 Neut % (Auto) 78.3 Lymph % (Auto) 12.7 Erath % (Auto) 7.2 Eos % (Auto) 1.6 Baso % (Auto) 0.1 Neut # (Auto) 5.73 Lymph # (Auto) 0.93 L Erath # (Auto) 0.53 Eos # (Auto) 0.12 Baso # (Auto) 0.01 Immature Gran # (Auto) 0.01 PT 10.9 INR 1.0 APTT 30.0 PTT Ratio 1.1 Sodium 140 Potassium 3.4 L Chloride 106 Carbon Dioxide 27 Anion Gap 7.0 BUN 25 H Creatinine 1.11 Est Cr Clr Drug Dosing 62.9 Est GFR ( Amer) 71.8 Est GFR (Non-Af Amer) 61.9 BUN/Creatinine Ratio 22.4 H Glucose 120 H Calcium 9.4 Magnesium 2.0 Total Bilirubin 0.4 AST 16 ALT 25 Alkaline Phosphatase 110 Troponin I < 0.015 Total Protein 7.3 Albumin 3.5 Globulin 3.8 Albumin/Globulin Ratio 0.9 Diagnostic Findings CTA HEAD 11/09/2020: -- No significant stenosis, occlusion, or aneurysm within the sax[place] of Ravi. CTA NECK 11/09/2020: 1. No stenosis or dissection within the major vessels of the neck. 2. Mild to moderate atherosclerotic plaque. 3. Emphysema CT head/brain without contrast 11/09/2020: -- No acute intracranial abnormality. Medications Administered Discontinued Medications Ioversol (Optiray 320 125ml) 120 ml IV ONCE ONE Stop: 11/09/20 10:16 Last Admin: 11/09/20 10:15 Dose: 120 ml Documented by: [id number] Meclizine HCl (Meclizine Hcl 25 Mg Tab) 25 mg PO NOW STA Stop: 11/09/20 10:47 Last Admin: 11/09/20 11:07 Dose: 25 mg Documented by: [id number] Code Status & VTE Plan Code Status Full Code VTE Prophylaxis Plan VTE Prophylaxis will be ordered: Yes Supervising Physician Co-Signing Physician Notes I personally saw and examined the patient. I verified all liu points and agree with JIM Thorne with the following exceptions and/or additions: 80-year-old male with new onset vertigo over the past 2 weeks with episodic nature. This reportedly came on with associated posterior right ear pain. Vertigo is never fully resolved since coming on 2 weeks ago. Much worse whenever he turns his head. O/E right-sided mastoid tenderness without swelling or erythema. Right tympanic membrane does not appear bulging and nonerythematous. Mildly reduced upper extremity coordination bilaterally. Otherwise no other focal neurology. PERRL, EOMI, no facial droop, speech exam normal. CN II->XII intact A/P Vertigo - MRI negative for stroke and given 2 weeks of symptoms, CVA as a cause has essentially been ruled out, neurology consult canceled. He was improved with meclizine therefore suspect peripheral source. Given onset with right- sided mastoid pain I am concerned about right-sided mastoiditis with effusion noted on CT and MRI. No white blood count or fever to suggest need for emergent IV antibiotics. Consult ENT. PG Care Time/CCT Total # of Minutes Spent Total Time Spent with Patient: Total time spent is greater than 50% in coordination of care (as documented) at patient's floor/unit and/or counseling patient:45 Coding Level of Care Code 91034 Initial Inpt Care Lvl 3 Diagnoses Vertigo R42 Unspecified atrial fibrillation I48.91 Hypertension I10 Hyperlipidemia E78.5 Time Spent (min) 65
--- NOTE | 2020-11-09 14:32 | Electrocardiogram Report ---
Test Reason : Blood Pressure : / mmHG Vent. Rate : 080 BPM Atrial Rate : 070 BPM P-R Int : 000 ms QRS Dur : 152 ms QT Int : 412 ms P-R-T Axes : 000 -26 087 degrees QTc Int : 475 ms Normal sinus rhythm with frequent Premature atrial complexes Left bundle branch block Abnormal ECG When compared with ECG of 07-JAN-2014 11:38, QRS axis Shifted left Confirmed by Haroldo Meehan ([id number]) on 11/09/2020 2:32:22 PM Referred By: Confirmed By:Haroldo Meehan
--- NOTE | 2020-11-09 15:59 | Magnetic Resonance Report ---
MRI OF THE BRAIN WITHOUT CONTRAST CLINICAL HISTORY: Vertigo, possible cerebellar CVA COMPARISON STUDY: Head CT and CTA of the head performed earlier today. TECHNIQUE: Utilizing a 1.5 Marlyn magnet and dedicated coil, multiplanar, multiecho imaging of the bra in was performed without IV contrast. FINDINGS: There are no foci of restricted diffusion to suggest acute infarct. No acute intracranial h emorrhage, midline shift or mass effect is present. Ventricular system is unremarkable. Basal cistern s are patent. There are no extra-axial collections. Flow-voids for the major intracranial vessels are present. Note is made of moderate atrophy. Minimal white matter T2 hyperintense foci are noted. Calv arial signal is normal. Right mastoid fluid is present. Postoperative findings within the sinuses are incidentally noted. There is no evidence for acute sinusitis. IMPRESSION: 1. No acute intracranial findings. 2. Moderate atrophy. 3. Fluid within the right mastoid air cells. ACT 112: Negative or not required by law. Electronically signed by: Harjeet Jacques M.D. 11/09/2020 3:58 PM
[2020-11-09] MEDS ORDERED: NITROGLYCERIN SL 0.4 MG/TAB TAB SL PRN (16:18)
[2020-11-09] MEDS ORDERED: MAGNESIUM HYDROXIDE SUSP 30 ML UDC PO PRN (16:18)
[2020-11-09] MEDS ORDERED: ALUMINUM/MAGNESIUM SUSP 30 ML UDC PO PRN (16:18)
[2020-11-09] MEDS ORDERED: LORazepam 1 MG TAB PO PRN (16:18)
[2020-11-09] MEDS ORDERED: ACETAMINOPHEN 325 MG TAB PO PRN (16:18)
[2020-11-09] MEDS ORDERED: MECLIZINE HCL 25 MG TAB PO PRN (16:18)
[2020-11-09] MEDS ORDERED: POLYETHYLENE (MIRALAX) 17 GM PACK PO PRN (16:18)
[2020-11-09] MEDS ORDERED: ONDANSETRON INJ 2 MG/ML 2 ML VIAL IV PRN (16:18)
[2020-11-09] MEDS ORDERED: POTASSIUM CHLORIDE CRTAB 20 MEQ TABCR PO ONE (17:00)
[2020-11-09] MEDS: APIXABAN 5 MG TABLET PO SCH (20:42)
[2020-11-09] MEDS: PRAVASTATIN SOD 40 MG TAB PO SCH (20:42)
[2020-11-09] MEDS ORDERED: CeleBREX 200 MG CAP PO SCH (21:00)
[2020-11-09] MEDS ORDERED: PANTOprazole 40 MG TAB PO SCH (21:00)
[2020-11-10 05:39] LABS: Basophils # (auto) 0.03 K/uL (0-0.2); Basophils % (auto) 0.5 %; Eosinophils # (auto) 0.16 K/uL (0-0.5); Eosinophils % (auto) 2.4 %; Hematocrit (blood only) 35.9 % (42-52); Hemoglobin 12.6 g/dL (14.0-18.0); Immature Granulocytes # (auto) 0.01 K/uL (0.00-0.02); Immature Granulocytes % (auto) 0.2 %; Lymphocytes # (auto) 0.72 K/uL (1.2-3.4); Mean Corpuscular Hemoglobin 32.1 pg (25-34); Mean Corpuscular Hgb Conc 35.1 g/dL (32-36); Mean Corpuscular Volume 91.3 fL (80-100); Mean Platelet Volume 10.7 fL (7.4-10.4); Monocytes # (auto) 0.59 K/uL (0.11-0.59); Neutrophils # (auto) 5.03 K/uL (1.4-6.5); Neutrophils % (auto) 76.9 %; Platelet Count 215 K/uL (130-400); RDW Coefficient of Variation 14.3 % (11.5-14.5); RDW Standard Deviation 48.2 fL (36.4-46.3); Red Blood Count 3.93 M/uL (4.7-6.1); White Blood Count 6.54 K/uL (4.8-10.8)
[2020-11-10 06:12] LABS: BUN Creatinine Ratio 22.1 (10-20); Calcium 8.6 mg/dl (8.5-10.1); Creatinine Clr Calc Pharmacy 62.4 ml/min; Est GFR (Non-African American) 61.3; Potassium 3.6 mmol/L (3.5-5.1)
[2020-11-10] MEDS: PRAVASTATIN SOD 40 MG TAB PO SCH (08:08)
[2020-11-10] MEDS: APIXABAN 5 MG TABLET PO SCH (08:09)
[2020-11-10] MEDS ORDERED: ASCORBIC ACID 500 MG TAB PO SCH (09:00)
[2020-11-10] MEDS ORDERED: CYANOCOBALAMIN (VITAMIN B-12) 2,500 MCG TAB.SUBL SL SCH (09:00)
[2020-11-10] MEDS ORDERED: POTASSIUM CHLORIDE CRTAB 20 MEQ TABCR PO SCH (09:00)
[2020-11-10] MEDS ORDERED: CALCIUM 600MG + VIT D 400 IU TAB PO SCH (09:00)
[2020-11-10] MEDS ORDERED: CHOLECALCIFEROL 1,000 UNITS 25 MCG TAB PO SCH (09:00)
[2020-11-10] MEDS ORDERED: ZINC SULFATE 220 MG CAPSULE PO SCH (09:00)
[2020-11-10] MEDS ORDERED: hydroCHLOROthiazide 25 MG TAB PO SCH (09:00)
[2020-11-10] MEDS ORDERED: CETIRIZINE HCL 10 MG TABLET PO SCH (09:00)
[2020-11-10] MEDS ORDERED: TOCOPHERYL, DL-ALPHA 400 UNITS CAP PO SCH (09:00)
[2020-11-10] MEDS ORDERED: ALFUZOSIN HCL 10 MG TAB PO SCH (09:00)
[2020-11-10] MEDS ORDERED: amLODIPine BESYLATE 5 MG TAB PO SCH (09:00)
[2020-11-10] MEDS ORDERED: OMEGA-3 (PURIFIED FISH OIL) 1 GM CAP PO SCH (09:00)
[2020-11-10 11:16] VITALS: BP 104/54; PULSE 79; TEMP 97.7; O2SAT 94
--- NOTE | 2020-11-10 15:50 | Discharge Summary ---
Date of Service November 10, 2020 Admission HPI Per Admitting Provider Mr. Schroeder is an 80 year old male with a history of Hypertension, Hyperlipidemia, Chronic LBBB, Mild CAD on Cardiac Catheterization 05/2018, JONAH s/p UPPP, GERD, Prostate Cancer, Osteoarthritis, and recently diagnosed Atrial Fibrillation(09/2020) who presented to [facility] ER with vertigo over the past 2 to 3 weeks. He describes the"room spinning" when he changes body position or suddenly changes his head position. He initially had just woken up and was turning to get up and out of bed. He states that he has trouble walking in a straight line. The other day, he changed the setting on the thermostat, and when he turned to walk away he experience significant vertigo which caused him to fall onto his right side. He has an abrasion on his right elbow when his right lower chest and upper abdomen are sore, although there is no evidence of bruising. Patient denies any syncope, near-syncope, lightheadedness, or loss of consciousness. 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 In the past, he was prescribed meclizine for his vertigo. He has been using meclizine once daily over the past several days, and his vertigo gets better, but does not completely resolve with meclizine. Patient was done fibrillation in September 2020. He was asymptomatic with it, and his heart rate was well controlled. He was started on Eliquis approximately 4 weeks ago due to his elevated [id number] of 3. Patient has not missed any doses of his blood thinner. As a matter fact, he was concerned that the blood thinner may be causing his vertigo. I have reassured him that is not the case. Patient offers no other complaints. He denies any headache, stiff neck, visual disturbance, blind spots, black spots, loss of visual calderon. He denies any weakness, numbness, tingling, or paralysis of any extremities. He has not had any loss an bowel or bladder control. He does admit to hearing loss due to working with loud machinery in the past. He does not have any recent hearing loss, and he denies any tinnitus. He denies any upper respiratory tract symptoms. He denies any chest pain or shortness of breath. He does admit to an occasional skipped heartbeat, but does not have any sensation of palpitations otherwise, nor has he had any perceived tachy-palpitations. Patient does admit to being under a lot of stress lately. He is taking care of his who has hypercapnic respiratory failure. She has been in an out of the hospital and rehabilitation facilities lately. Principal Diagnosis Right sinus/ear infection Discharge Exam Constitutional WD/WN, vitals as above Eyes EOM intact bilaterally; no conjunctival abnormality ENMT external ear and nose normal, oropharynx normal Neck trachea midline, no thyromegaly normal visual inspection Respiratory normal respiratory effort, lungs clear to auscultation no respiratory distress Cardiovascular RRR, no murmur, no edema Gastrointestinal (Abdomen) Inspection/Auscultation: abdomen normal to inspection; abdomen not distended Musculoskeletal no cyanosis or clubbing, extremities motor strength 5/5 Skin no rashes, warm and dry Neurologic moves all extremities and awake Psychiatric Orientation: alert, oriented to person and cooperative Discharge Data Allergies Allergy/AdvReac Type Severity Reaction Status Date / Time finasteride Allergy Severe SOB Verified 11/09/20 10:52 alendronate sodium Allergy Intermediate HIVES Verified 11/09/20 10:52 Oqniiwb-Lod-Mcu Reductase Allergy Intermediate VERTIGO Verified 11/09/20 10:52 Inhibitor tamsulosin Allergy Intermediate HIVES Verified 11/09/20 10:52 adhesive Allergy Unknown Verified 11/09/20 10:52 egg Allergy Unknown Verified 11/09/20 10:52 influenza virus vaccine, Allergy Unknown Verified 11/09/20 10:52 specific zolpidem Allergy Unknown Verified 11/09/20 10:52 Consultations 11/09/20 12:23 ED Decision to Admit Stat 11/10/20 00:01 Consult Otolaryngology (Head and Neck) Routine Ordered Studies 11/09/20 09:29 CT angio head w con Stat CT angio neck with con Stat CT head/brain wo con Stat 11/09/20 14:37 MR brain wo con Routine Hospital Course (1) Vertigo: No stroke on MRI and CTA head/neck looked good. Likely sinus/ear infection. Discharged on Augmentin and Flonase. Will follow up with ENT as outpatient. Sees Dr. Smith in the past. (2) Unspecified atrial fibrillation: Presumed permanent afib. -- Patient was diagnosed with Atrial Fibrillation in September 2020. -- Asymptomatic and rate controlled. -- Eliquis 5 mg b.i.d. was started 4 weeks ago. -- [id number] is 3. -- Patient has not missed any doses of his blood thinner. (3) Hypertension: -- Blood pressure appears to be under reasonable control. -- Continue Amlodipine 10 mg daily. -- Continue Hydrochlorothiazide 25 mg daily. -- Give extra dose of Potassium Chloride today due to mild hypokalemia. (4) Hyperlipidemia: -- Continue Pravastatin 40 mg b.i.d.. -- Heart healthy diet. Total Time Total Time Spent Total Time Spent (In Minutes): 35 Discharge Plan Discharge Items Patient Disposition: Home - Home Health Services Reason For Visit: VERTIGO, ?CEREBELLAR CVA Discharge Diagnosis: Right sinus infection Condition on Discharge: Good Activity: Resume your previous activity Non-emergency contact: Primary Care Provider and Specialist Call non-emergency contact if: your symptoms worsen Follow-up/Referrals: Eliu Manriquez DO [Primary Care Provider] - Steffany Smith MD [Physician] - (Please see Dr. Smith before your next visit to be sure your ear is healing well.) Diet: Heart Healthy Addtl Attending Provider Instructions: Mr. Schroeder, You were admitted with vertigo that we were worried was from a stroke. This is not the case! This is good. You did NOT have any stroke. You do have some fluid in the right ear and some indication of an ear infection. We are sending you home with an antibiotic to take twice a day and some nasal sprays to help dry the fluid up. Please see Dr. Smith in his clinic sometime before you are done with the antibiotics. Pending Studies at Discharge: No Stand-Alone Forms: [facility], Smoking Cessation Medications and DC Order Prescriptions: New amoxicillin-pot clavulanate [Augmentin] 875-125 mg tablet 1 tab PO BID Qty: 20 RF: 0 fluticasone propionate [Flonase Allergy Relief] 50 mcg/actuation spray,suspension 1 spray intranasal BID Qty: 9.9 RF: 0 Continued ascorbic acid (vitamin C) 500 mg tablet extended release 1,000 mg PO QAM RF: 0 vitamin E (dl, acetate) 400 unit capsule 400 units PO QAM RF: 0 amlodipine 10 mg tablet 10 mg PO QAM Qty: 90 RF: 3 potassium chloride 20 mEq tablet extended release 20 meq PO QAM Qty: 90 RF: 3 hydrochlorothiazide 25 mg tablet 25 mg PO QAM Qty: 90 RF: 3 Eliquis 5 mg tablet 5 mg PO BID Qty: 60 RF: 2 cyanocobalamin (vitamin B-12) [Vitamin B-12] 2,500 mcg Tablet, Sublingual 2,500 mcg SUBLINGUAL QAM RF: 0 calcium carbonate-vitamin D3 [Calcium 600 + D(3)] 600 mg(1,500mg) -200 unit Tablet 1 tab PO QAM RF: 0 alfuzosin 10 mg tablet extended release 24 hr 10 mg PO QAM RF: 0 celecoxib [Celebrex] 200 mg Capsule 200 mg PO HS RF: 0 pravastatin 40 mg Tablet 40 mg PO BID RF: 0 zinc 50 mg Tablet 50 mg PO QAM RF: 0 omeprazole 20 mg Tablet,Delayed Release (Dr/Ec) 20 mg PO HS RF: 0 Zyrtec 10 mg Capsule 1 cap PO QAM RF: 0 cholecalciferol (vitamin D3) [Vitamin D3] 1,000 unit (25 mcg) tablet 2,000 units PO QAM RF: 0 omega 4-zjk-gpt-fish oil [Fish Oil] 1,000 mg (120 mg-180 mg) capsule 1 cap PO QAM RF: 0 Changed meclizine 25 mg tablet 25 mg PO BID PRN (Reason: Vertigo) Qty: 30 RF: 0 Discharge Orders: Discharge Order (Routine); Ordered 11/10/20 Ordered By: Adam Burton Admission Data Admit Date/Time: 11/09/20 13:28 Attending Provider: Adam Burton Admit Provider: Cristi Samuels Primary Care Provider: Eliu Manriquez Other Providers: Natacha Moser ; Adam Burton Other Interventions: Discharge Summary Assessment (RN) Last Done: 11/10/20 12:13 Coding Level of Care Code D/C Day Management >30 mins Diagnoses Vertigo R42 Unspecified atrial fibrillation I48.91 Hypertension I10 Hyperlipidemia E78.5
== END 2020-11-10 15:48 | disposition home or self-care (01) | DRG 153 ==
LOC: ED 09:20 → SUATTDRO 13:28 → 2N 13:28

== ENCOUNTER 2024-08-29 06:29 | Observation (INO) ==
--- NOTE | 2024-08-04 10:20 | PAT Medication Instructions ---
Medication Instructions Date of Service August 04, 2024 Home Medications Medication Instructions Recorded meclizine 25 mg tablet 25 mg PO BID PRN Vertigo #30 tabs 08/17/23 apixaban 5 mg tablet (Eliquis) 5 mg PO BID #180 tabs 09/11/23 nystatin 100,000 unit/gram topical 1 applic topical BID groin 12/25/23 powder irritation #60 grams hydrochlorothiazide 25 mg tablet 25 mg PO QAM #90 tabs 02/21/24 potassium chloride 20 mEq 20 meq PO QAM #90 tabs 06/10/24 tablet,extended release tramadol 50 mg tablet 50 mg PO Q8H PRN pain #30 tabs 07/22/24 celecoxib 200 mg capsule (Celebrex) 200 mg PO QAM omeprazole 20 mg tablet,delayed release 20 mg PO HS pravastatin 40 mg tablet 40 mg PO BID cholecalciferol (vitamin D3) 25 mcg (1,000 unit) tablet (Vitamin D3) 2,000 units PO QAM omega 9-ife-atx-fish oil 1,000 mg (120 mg-180 mg) capsule (Fish Oil) 1 cap PO QAM vitamin E (dl, acetate) 180 mg (400 unit) capsule 400 units PO QAM calcium 600 mg (as carbonate)-vitamin D3 5 mcg (200 unit) tablet (Calcium 600 + D(3)) 1 tab PO QAM cyanocobalamin (vitamin B-12) 2,500 mcg sublingual tablet (Vitamin B-12) 2,500 mcg sublingual QAM ascorbic acid (vitamin C) 100 mg tablet 300 mg PO QAM acetaminophen 500 mg tablet (Tylenol Extra Strength) 1,000 mg PO BID gabapentin 100 mg capsule 300 mg PO BID meclizine 25 mg tablet 25 mg PO BID PRN apixaban 5 mg tablet (Eliquis) 5 mg PO BID nystatin 100,000 unit/gram topical powder 1 applic topical BID hydrochlorothiazide 25 mg tablet 25 mg PO QAM potassium chloride 20 mEq tablet,extended release 20 meq PO QAM tramadol 50 mg tablet 50 mg PO Q8H PRN alfuzosin 10 mg tablet,extended release 24 hr 10 mg PO QAM diltiazem HCl 180 mg capsule,extended release 24 hr (Cardizem CD) 180 mg PO QAM prednisone 10 mg tablet 10 mg PO QAM vit C 250 mg-vit E 90 mg-zinc 40 mg-copper 1 le-cvbbgz-esfhjr capsule (PreserVision AREDS-2) 1 tab PO BID ASK your surgeon for instructions celecoxib 200 mg capsule (Celebrex) 200 mg PO QAM ASK your prescriber and surgeon apixaban 5 mg tablet (Eliquis) 5 mg PO BID(in order for spinal or epidural anesthesia, Eliquis needs to be stopped 72 hours/3 days before surgery. Please check if okay with doctor that prescribes this to you) STOP taking 2 weeks before surgery (or as soon as possible if surgery is within 2 weeks) omega 7-ige-aby-fish oil 1,000 mg (120 mg-180 mg) capsule (Fish Oil) 1 cap PO QAM vitamin E (dl, acetate) 180 mg (400 unit) capsule 400 units PO QAM vit C 250 mg-vit E 90 mg-zinc 40 mg-copper 1 sz-hiypgr-ekajmq capsule (PreserVision AREDS-2) 1 tab PO BID STOP taking 24 hours before surgery nystatin 100,000 unit/gram topical powder 1 applic topical BID DO NOT take the morning of surgery cholecalciferol (vitamin D3) 25 mcg (1,000 unit) tablet (Vitamin D3) 2,000 units PO QAM calcium 600 mg (as carbonate)-vitamin D3 5 mcg (200 unit) tablet (Calcium 600 + D(3)) 1 tab PO QAM cyanocobalamin (vitamin B-12) 2,500 mcg sublingual tablet (Vitamin B-12) 2,500 mcg sublingual QAM ascorbic acid (vitamin C) 100 mg tablet 300 mg PO QAM hydrochlorothiazide 25 mg tablet 25 mg PO QAM potassium chloride 20 mEq tablet,extended release 20 meq PO QAM Take morning of surgery With a small sip of water, OTHERWISE NOTHING TO EAT OR DRINK AFTER MIDNIGHT: pravastatin 40 mg tablet 40 mg PO BID acetaminophen 500 mg tablet (Tylenol Extra Strength) 1,000 mg PO BID gabapentin 100 mg capsule 300 mg PO BID meclizine 25 mg tablet 25 mg PO BID PRN(if needed) tramadol 50 mg tablet 50 mg PO Q8H PRN(if needed) alfuzosin 10 mg tablet,extended release 24 hr 10 mg PO QAM diltiazem HCl 180 mg capsule,extended release 24 hr (Cardizem CD) 180 mg PO QAM prednisone 10 mg tablet 10 mg PO QAM Take evening before surgery omeprazole 20 mg tablet,delayed release 20 mg PO HS pravastatin 40 mg tablet 40 mg PO BID acetaminophen 500 mg tablet (Tylenol Extra Strength) 1,000 mg PO BID gabapentin 100 mg capsule 300 mg PO BID meclizine 25 mg tablet 25 mg PO BID PRN(if needed) tramadol 50 mg tablet 50 mg PO Q8H PRN(if needed) Other Notes If you have any questions please call us at [phone] or [phone] or [phone] or [phone]
--- NOTE | 2024-08-08 12:00 | Anesthesiology Consultation ---
Date of Service August 08, 2024 Assessment & Plan (1) Encounter for pre-operative examination: - Infectious disease screening: Per assessment on 08/08/24- No known recent infectious disease contacts or current infectious disease symptoms. - Outpatient joint assessment: Pt currently scheduled for inpatient pathway. If surgeon requests review for outpatient joint pathway, patient is not recommended candidate for outpatient joint program from anesthesia standpoint based on available information. - Cardiology visit (07/29/24): "Stable from a cardiac standpoint. Limited primarily by orthopedic issues. Slight change in exertional dyspnea, now NYHA equivalent 2 symptoms. Suspect related to deconditioning. No signs of heart failure or new valvular disease on exam.. asymptomatic AF today with heart rates on exam in 100s. Blood pressure well controlled.. From a cardiac standpoint OK to proceed with planned hip replacement without additional cardiac testing. He is relatively low risk for adverse cardiac events." - Eliquis instructions: Previous documentation from cardiology at preop appt 07/29/24 notes recommendation to hold Eliquis 48 hours prior to surgery. Patient states he told by surgeon they are requesting Eliquis held 3 days prior to surgery. I advised patient that from an anesthesia perspective, in order for neuraxial anesthesia, we also request Eliquis held 3 days prior to surgery. Patient voiced understand and is aware to contact cardiology to ensure okay to hold 72 hours prior to surgery from their perspective. - Hx difficult intubation per records: * H/o glidescope 2010 per records * Brachytherapy (01/30/19): Grade 3 view, Burton#2 > Glidescope #4 (atraumatic x2 , first with Burton 2), ETT 7.5 at [facility] Chart Review Chart Review: Acceptable Risk for Surgery and Patient seen in Pre Admission Testing Teaching & Discussion Pre-Anesthesia Teaching/Discussion Notes: Instructed NPO after midnight before surgery,except medications with 15 cc of water. Medication instructions provided according to the PAT guidelines. History Surgery Operation Date: 08/29/24 12:05 Proposed Procedures p Right Anterior Total Hip Arthroplasty - Charly Camara, Height/Weight Height: 5 ft 7 in Weight: 102.8 kg Allergies Allergy/AdvReac Type Severity Reaction Status Date / Time finasteride Allergy Severe SOB Verified 08/04/24 09:10 zolpidem Allergy Severe Facial Verified 08/08/24 13:10 swelling, lip swelling alendronate sodium Allergy Intermediate Hives Verified 08/08/24 13:10 Bhwkzrn-UKL-HjS Reductase Allergy Intermediate Vertigo Verified 08/08/24 13:10 Inhibitor [Dwiksgn-Rxl-Tjv Reductase Inhibitor] tamsulosin Allergy Intermediate Hives Verified 08/08/24 13:10 adhesive AdvReac Mild "Pulled Verified 08/08/24 13:10 skin" Medications Home Medications Medication Instructions Recorded Confirmed Last Taken celecoxib 200 mg capsule (Celebrex) 200 mg PO QAM 01/20/19 08/04/24 11/08/20 omeprazole 20 mg tablet,delayed 20 mg PO HS 01/20/19 08/04/24 11/08/20 release pravastatin 40 mg tablet 40 mg PO BID 01/20/19 08/04/24 11/09/20 cholecalciferol (vitamin D3) 25 2,000 units PO QAM 06/13/19 08/04/24 11/09/20 mcg (1,000 unit) tablet (Vitamin D3) omega 3-trw-xuy-fish oil 1,000 mg 1 cap PO QA 06/13/19 08/04/24 11/09/20 (120 mg-180 mg) capsule (Fish Oil) vitamin E (dl, acetate) 180 mg 400 units PO QAM 12/05/19 08/04/24 11/09/20 (400 unit) capsule calcium 600 mg (as 1 tab PO QAM 11/09/20 08/04/24 11/09/20 carbonate)-vitamin D3 5 mcg (200 unit) tablet (Calcium 600 + D(3)) cyanocobalamin (vitamin B-12) 2,500 mcg sublingual QAM 11/09/20 08/04/2411/28 2,500 mcg sublingual tablet (Vitamin B-12) ascorbic acid (vitamin C) 100 mg 300 mg PO QAM 12/14/20 08/04/24 Unknown tablet acetaminophen 500 mg tablet 1,000 mg PO BID 05/31/21 08/04/24 Unknown (Tylenol Extra Strength) gabapentin 100 mg capsule 300 mg PO BID 12/15/21 08/04/24 Unknown meclizine 25 mg tablet 25 mg PO BID PRN Vertigo #30 tabs 08/17/23 08/04/24 Unknown apixaban 5 mg tablet (Eliquis) 5 mg PO BID #180 tabs 09/11/23 08/04/24 Unknown nystatin 100,000 unit/gram topical 1 applic topical BID groin 12/25/23 08/04/24 Unknown powder irritation #60 grams hydrochlorothiazide 25 mg tablet 25 mg PO QAM #90 tabs 02/21/24 08/04/24 Unknown potassium chloride 20 mEq 20 meq PO QAM #90 tabs 06/10/24 08/04/24 Unknown tablet,extended release tramadol 50 mg tablet 50 mg PO Q8H PRN pain #30 tabs 07/22/24 08/04/24 Unknown alfuzosin 10 mg tablet,extended 10 mg PO QAM 08/04/24 08/04/24 Unknown release 24 hr diltiazem HCl 180 mg 180 mg PO QAM 08/04/24 08/04/24 Unknown capsule,extended release 24 hr (Cardizem CD) prednisone 10 mg tablet 10 mg PO QAM 08/04/24 08/04/24 Unknown vit C 250 mg-vit E 90 mg-zinc 40 1 tab PO BID 08/04/24 08/04/24 Unknown mg-copper 1 ul-wbwnti-uyfnjn capsule (PreserVision AREDS-2) Past Medical History Medical History Arthritis of right hip Atrial fibrillation Follows with Dr. Tenorio Taking Eliquis Chronic anemia Baseline hgb 11-12 range per chart review Chronic venous insufficiency Diverticular disease GERD (gastroesophageal reflux disease) Gout History of prostate cancer 2018- radiation/brachytherapy History of skin cancer B/L ears, "removed in office" Uncertain of type/limited details History of vertigo Per records Hyperlipidemia Hypertension Left bundle branch block Chronic Mitral regurgitation Nonobstructive atherosclerosis of coronary artery 30% mid LAD per 05/2018 cardiac cath done to evaluate OLIVA Nonobstructive atherosclerosis of coronary artery 2017 cath: 30% mid LAD Follows with Dr. Tenorio Obesity Osteoarthritis Sciatica Sensorineural hearing loss (SNHL) of both ears Per records Sleep apnea CPAP S/P UPPP Exercise / Class Metabolic Activity III < 4 Walking/Shop/Light housework (uses walker) Past Family History Family History Mother , at 86yo Breast cancer Bowel cancer Cancer Father , 82yo Atherosclerosis Peripheral vascular disease Hypertension Heart disease Sister Breast cancer Bowel cancer Cardiac arrhythmia Stroke Cancer Son No problems noted. Son No problems noted. Daughter Anal cancer Other Hearing loss No family history of adverse response to anesthesia No family history of bleeding disorder Past Surgical History Surgical History Difficult airway for intubation H/o glidescope 2010 per records Brachytherapy (01/30/19): Grade 3 view, Burton#2 > Glidescope #4 (atraumatic x2, first with Burton 2), ETT 7.5 at [facility] Fatty tumor Back/hip > removal Per records H/O endoscopic sinus surgery Per records H/O Spinal surgery "Removal of lumbar spine lamina" per pt (1976) H/O total knee replacement Left knee (2004) Right knee () History of brachytherapy [facility] (2018) History of bunionectomy Right foot (2000) History of cardiac cath Most recent 2017 > no stents History of cataract surgery Bilateral (2006) History of cholecystectomy 1992 History of esophagogastroduodenoscopy (EGD) History of prostate biopsy History of tooth extraction Hx of colonoscopy Hx of inguinal hernia surgery Right side (2000) S/P repair of hydrocele Left (1994) S/P sinus surgery S/P UPPP (uvulopalatopharyngoplasty) Status post excision of lipoma Back/hip region Past Anesthesia History Difficult Airway and No Family Hx of Anesthesia Complications History of PONV No Hx of PONV and No Hx of Motion Sickness Social History Smoking Status: Former smoker tobacco type: cigarettes Do You Dip or Chew Tobacco: No Smoking End Date: Quit several years ago Hx Alcohol Use: No Hx Substance Use: No substance use type: does not use Review of Systems Patient denies chest pain, shortness of breath, fever, chills, cough, wheezing, palpitations. Physical Exam Vital Signs BP 115/56 P 94 TEMP 98.1 SP02 97%RA RESP 18 Physical Full cervical extension range of motion. Full TMJ range of motion. TMD 3 finger breaths Mallampati Score III Dentition: missing molars, + caps Lungs: clear throughout to auscultation Cardiac: regular rate and rhythm, no murmurs noted Spine: normal Carotid arteries: negative bruit Extremities: no LE edema Lab Results Anesthesia Preop Results Results Anesthesia Widget: WBC 8.83 K/ul (4.8-10.8) 08/08/24 Hgb 11.5 g/dl (14.0-18.0) L 08/08/24 Hct 33.2 % (42.0-52.0) L 08/08/24 Plt 230 K/uL (130-400) 08/08/24 Na 138 mmol/L (136-145) 08/08/24 K 3.8 mmol/L (3.5-5.1) 08/08/24 Cl 104 mmol/L (98-107) 08/08/24 CO2 26 mmol/L (21-32) 08/08/24 BUN 36 mg/dl (6-23) H 08/08/24 Creat 1.15 mg/dl (0.6-1.4) 08/08/24 Glucose Level 115 mg/dl (70-99(Fasting)) H 08/08/24 PT 11.7 Seconds (9.0-12.0) 08/08/24 PTT 29 Seconds (21-31) 08/08/24 INR 1.1 (0.9-1.1) 08/08/24 Blood Type A Positive 08/08/24 Antibody Screen NEGATIVE 08/08/24 Testing Electrocardiogram Date: 02/13/24 SR with premature supraventricular complexes at 80bpm. LAD. LBBB. Chest X-Ray Date: 02/18/24 FINDINGS: PA and lateral chest radiographs are compared to study dated 11/09/2020. The heart is enlarged noting atherosclerotic calcification of the thoracic aorta. The pulmonary vasculature is noncongested. Chronic interstitial thickening similar to previous. There is mild bibasilar scarring/atelectasis. The lungs and pleural spaces are otherwise clear. There is no pneumothorax. The skeletal structures are osteopenic. The bony thorax appears intact. Degenerative change and hyperkyphosis is seen in the spine. Arthritic change is noted in the shoulders. There are cholecystectomy clips in the right upper quadrant. IMPRESSION: Mild cardiomegaly with no active disease in the chest. Echocardiogram Date: 06/27/23 LVEF 50-55%. Abnormal septal motion consistent with conduction abnormality. Mild to moderate MR. Normal estimated RA and PA pressures. No thrombus. Moderate cLVH. Trace to mild TX. Cardiac Catheterization Date: 05/17/18 Mild to moderate nonobstructive coronary artery disease. 30% mid LAD at the bifurcation of second diagonal with 30-40% ostial stenosis. Normal intracardiac filling pressure. Recommendations: Continue ASCVD risk factor modification. Evaluate for noncardiac cause of exertional dyspnea.
--- NOTE | 2024-08-27 07:48 | History & Physical Report ---
Date of Service August 27, 2024 Assessment & Plan (1) Arthritis of right hip: We will proceed with a right anterior total of arthroplasty. Postoperatively he will be started on Eliquis for DVT prophylaxis and kept overnight in the hospital for postop medical management. He plans to have the hospital set up home health for discharge. History of Present Illness Chief Complaint: Osteoarthritis of the right hip. Primary Care Provider: Eliu ManriquezDO Chavez is a pleasant 84-year-old male who has been dealing with chronic increasing right hip and groin pain. X-rays and clinical examination have been diagnostic for advanced osteoarthritis of the right hip. He already saw my partner who tried an injection of his right hip joint. Unfortunately that provided little relief. He is really struggling with his hip. After failed conservative treatment, he has elected to proceed with a right anterior total of arthroplasty. Allergies Allergy/AdvReac Type Severity Reaction Status Date / Time finasteride Allergy Severe SOB Verified 08/04/24 09:10 zolpidem Allergy Severe Facial Verified 08/08/24 13:10 swelling, lip swelling alendronate sodium Allergy Intermediate Hives Verified 08/08/24 13:10 Gikkbwo-HXA-XrT Reductase Allergy Intermediate Vertigo Verified 08/08/24 13:10 Inhibitor [Asuajyp-Dws-Zut Reductase Inhibitor] tamsulosin Allergy Intermediate Hives Verified 08/08/24 13:10 adhesive AdvReac Mild "Pulled Verified 08/08/24 13:10 skin" Home Medications Medication Instructions Recorded Confirmed Type celecoxib 200 mg capsule (Celebrex) 200 mg PO QAM 01/20/19 08/04/24 History omeprazole 20 mg tablet,delayed 20 mg PO HS 01/20/19 08/04/24 History release pravastatin 40 mg tablet 40 mg PO BID 01/20/19 08/04/24 History cholecalciferol (vitamin D3) 25 2,000 units PO QAM 06/13/19 08/04/24 History mcg (1,000 unit) tablet (Vitamin D3) omega 1-dyk-kiu-fish oil 1,000 mg 1 cap PO QAM 06/13/19 08/04/24 History (120 mg-180 mg) capsule (Fish Oil) vitamin E (dl, acetate) 180 mg 400 units PO QAM 12/05/19 08/04/24 History (400 unit) capsule calcium 600 mg (as 1 tab PO QAM 11/09/20 08/04/24 History carbonate)-vitamin D3 5 mcg (200 unit) tablet (Calcium 600 + D(3)) cyanocobalamin (vitamin B-12) 2,500 mcg sublingual QAM 11/09/20 08/04/24 History 2,500 mcg sublingual tablet (Vitamin B-12) ascorbic acid (vitamin C) 100 mg 300 mg PO QAM 12/14/20 08/04/24 History tablet acetaminophen 500 mg tablet 1,000 mg PO BID 05/31/21 08/04/24 History (Tylenol Extra Strength) gabapentin 100 mg capsule 300 mg PO BID 12/15/21 08/04/24 History meclizine 25 mg tablet 25 mg PO BID PRN Vertigo #30 tabs 08/17/23 08/04/24 Rx apixaban 5 mg tablet (Eliquis) 5 mg PO BID #180 tabs 09/11/23 08/04/24 Rx nystatin 100,000 unit/gram topical 1 applic topical BID groin 12/25/23 08/04/24 Rx powder irritation #60 grams hydrochlorothiazide 25 mg tablet 25 mg PO QAM #90 tabs 02/21/24 08/04/24 Rx potassium chloride 20 mEq 20 meq PO QAM #90 tabs 06/10/24 08/04/24 Rx tablet,extended release alfuzosin 10 mg tablet,extended 10 mg PO QAM 08/04/24 08/04/24 History release 24 hr diltiazem HCl 180 mg 180 mg PO QAM 08/04/24 08/04/24 History capsule,extended release 24 hr (Cardizem CD) prednisone 10 mg tablet 10 mg PO QAM 08/04/24 08/04/24 History vit C 250 mg-vit E 90 mg-zinc 40 1 tab PO BID 08/04/24 08/04/24 History mg-copper 1 qc-tyntzv-ftgxps capsule (PreserVision AREDS-2) tramadol 50 mg tablet 50 mg PO Q8H PRN pain #30 tabs 08/12/24 Rx Past Med/Surg History Problem List ETD (eustachian tube dysfunction) Chronic venous insufficiency Seasonal allergies Hematuria Arthralgia (Chronic) Encounter for pre-operative examination Impotence due to erectile dysfunction (Chronic) Medical History History of vertigo Per records Chronic anemia Baseline hgb 11-12 range per chart review Osteoarthritis Mitral regurgitation Hypertension Hyperlipidemia Gout GERD (gastroesophageal reflux disease) Diverticular disease Chronic venous insufficiency Left bundle branch block Chronic Arthritis of right hip History of prostate cancer 2019- radiation/brachytherapy History of skin cancer B/L ears, "removed in office" Uncertain of type/limited details Nonobstructive atherosclerosis of coronary artery 2018 cath: 30% mid LAD Follows with Dr. Tenorio Sensorineural hearing loss (SNHL) of both ears Per records Obesity Nonobstructive atherosclerosis of coronary artery 30% mid LAD per 05/2018 cardiac cath done to evaluate OLIVA Atrial fibrillation Follows with Dr. Tenorio Taking Eliquis Sleep apnea CPAP S/P UPPP Sciatica Surgical History History of tooth extraction History of esophagogastroduodenoscopy (EGD) S/P sinus surgery Status post excision of lipoma Back/hip region Difficult airway for intubation H/o glidescope 2010 per records Brachytherapy (01/30/19): Grade 3 view, Burton#2 > Glidescope #4 (atraumatic x2, first with Burton 2), ETT [address] [facility] History of prostate biopsy S/P UPPP (uvulopalatopharyngoplasty) H/O endoscopic sinus surgery Per records Fatty tumor Back/hip > removal Per records History of brachytherapy [facility] (2018) Hx of colonoscopy History of cardiac cath Most recent 2017 > no stents Hx of inguinal hernia surgery Right side (2000) History of cataract surgery Bilateral (2006) History of bunionectomy Right foot (2000) H/O total knee replacement Left knee (2004) Right knee () S/P repair of hydrocele Left (1994) History of cholecystectomy 1992 H/O Spinal surgery "Removal of lumbar spine lamina" per pt (1976) Family History Mother , at 86yo Breast cancer Bowel cancer Cancer Father , 82yo Atherosclerosis Peripheral vascular disease Hypertension Heart disease Sister Breast cancer Bowel cancer Cardiac arrhythmia Stroke Cancer Son No problems noted. Son No problems noted. 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 Physical Exam On physical exam of the right hip, he has decreased range of motion. He is pain with internal/external rotation. All of his pain is located in the groin.. Constitutional WD/WN, vitals as above Eyes PERRL, conjunctivae normal, anicteric sclerae ENMT external ear and nose normal, oropharynx normal Neck trachea midline, no thyromegaly Respiratory normal respiratory effort Cardiovascular RRR, no murmur, no edema Gastrointestinal (Abdomen) normal bowel sounds, soft, nontender, no hepatosplenomegaly Psychiatric A+Ox3, euthymic affect Results & Data Results & Data Laboratory Results . Diagnostic Findings X-rays of the right hip show advanced osteoarthritis with joint space narrowing, osteophyte formation, and qvhs-ca-odwp articulation. PG Care Time/CCT Total # of Minutes Spent Total Time Spent with Patient: Total time spent is greater than 50% in coordination of care (as documented) at patient's floor/unit and/or counseling patient: Coding Level of Care Code None Diagnoses Arthritis of right hip M16.11
[~2024-08-29 06:29] MED LIST changes: -AMLO5TAB3 PO; -ANT25 PO; -ASPCH81X PO; -ATV/1 PO; +BUPIVACAINE 0.5 % 5 MG/1 ML PF 10ML VIAL ONE; -CALC600T9 PO; -CETI10CH PO; -CLB/200 PO; -DICL75TA2 PO; -FENTANYL CITRATE INJ 50 MCG/1 ML 2 ML VIAL ONE; -HEPARIN SOD (PORCINE) 1000 UNIT/ML 10 ML VIAL ONE; -HYDUNK PO; -MIDAZOLAM HCL 1 MG/ML 2ML VIAL ONE; -NITROGLYCERIN/D5W 100MCG/ML 20ML SYR ONE; -NiCARDipine HCL INJ 2.5 MG/ML 10 ML AMP ONE; -OMEG10007 PO; -POTA1TAB PO; -PRAV20TA PO; -PRLSR20 PO
[2024-08-29] MEDS: ACETAMINOPHEN 500 MG TAB PO SCH ×2 (07:32→14:06)
[2024-08-29] MEDS: LR 60ML/HR IV SCH (07:32)
[2024-08-29] MEDS: GABAPENTIN 300 MG CAP PO SCH ×2 (07:32→21:57)
[2024-08-29] MEDS: FAMOTIDINE 20 MG TAB PO SCH (07:33)
[2024-08-29] MEDS: LR 500ML BOLUS, THEN 15ML/HR IV SCH (07:57)
[2024-08-29] MEDS: dexAMETHasone**PF** 10 MG/ML VIAL IV SCH (07:58)
--- NOTE | 2024-08-29 08:08 | History & Physical Bridge Note ---
Date of Service August 29, 2024 History & Physical Bridge Note I have examined the patient, reviewed the History & Physical and in the interval since the performance of the History & Physical I have noted the following changes of clinical significance: no changes noted
[2024-08-29] MEDS ORDERED: MIDAZOLAM HCL 1 MG/ML 2ML VIAL ONE (08:39)
[2024-08-29] MEDS: TRANEXAMIC ACID 1,000 MG **IV Pre-op IV SCH (09:00)
[2024-08-29] MEDS ORDERED: ONDANSETRON INJ 2 MG/ML 2 ML VIAL IV PRN ×2 (09:20→12:38)
[2024-08-29] MEDS ORDERED: ePHEDrine sulfate 50 MG/ML AMP IV PRN (09:20)
[2024-08-29] MEDS ORDERED: fentaNYL citrate PF 100 MCG/2 ML VIAL IV PRN (09:20)
[2024-08-29] MEDS ORDERED: ATROPINE SULFATE 0.1 MG/ML 10ML SYR IV PRN (09:20)
[2024-08-29] MEDS ORDERED: ROCURONIUM BROMIDE 10 MG/ML 5 ML VIAL IV ONE ×2 (09:21→10:00)
[2024-08-29] MEDS ORDERED: fentaNYL citrate PF 100 MCG/2 ML VIAL ONE ×2 (09:24→10:01)
[2024-08-29] MEDS: ceFAZolin 2000MG 2,000 MG/15 ML SYR IV SCH ×2 (09:30→18:08)
[2024-08-29] MEDS ORDERED: DEXAMETHASONE SOD INJ 4 MG/ML VIAL ONE (09:38)
[2024-08-29] MEDS ORDERED: ONDANSETRON INJ 2 MG/ML 2 ML VIAL ONE (09:38)
[2024-08-29] MEDS ORDERED: PHENYLEPHRINE 100MCG/ML 5ML SYR ONE (09:38)
[2024-08-29] MEDS ORDERED: SUCCINYLCHOLINE CHLORIDE 20 MG/ML 10 ML VIAL IV ONE (09:39)
[2024-08-29] MEDS ORDERED: SUCCINYLCHOLINE 100MG/5ML SYR IV ONE (09:39)
[2024-08-29] MEDS: ORTHO JOINT ANESTHETIC ONE (10:09)
[2024-08-29] MEDS ORDERED: HYDROmorphone INJ 2 MG/ML SYR/VIAL ONE (10:31)
[2024-08-29] MEDS: ROPIV 0.5% 246mg, Ketorolac 30mg, EPINEPHrine 0.5mg in NSS INFIL SCH (10:51)
[2024-08-29] MEDS: TRANEXAMIC ACID 1,000 MG **IV Intra-op IV SCH (11:03)
--- NOTE | 2024-08-29 11:03 | Operative Report ---
PG Post Operative Report Pre & Post Diagnosis Operation Date: 08/29/24 09:00 Pre-Op Diagnosis: Arthritis of right hip Post-Op Diagnosis: Arthritis of right hip I identified the patient and participated in the time-out.: Yes Procedure Operation Date: 08/29/24 09:00 Actual Procedures p Right Anterior Total Hip Arthroplasty(Right) - Charly Camara DO Surgeon Charly Camara DO Data Acquisition Technician Rell Garvin PA-C Estimated Blood Loss 300 Findings Consistent with Post-Op Diagnosis Specimens Right femoral head Description of Procedure Implants used I used a ZimmerBiomet total hip arthroplasty system with a size 9 lateral echo cemented stem, a 52 mm G7 cup with a 25mm screw, an E1 polyethylene liner, a 36 mm ceramic head with a +9 neck. Scott arrived at the hospital for the above procedure. He was seen in the preoperative holding area and the operative extremity was identified and signed. He was given a spinal anesthetic, a preoperative antibiotic, and TXA. He was then taken back to the operating room and laid on the table in the supine position. He was given basic sedation. The operative leg was secured to a Puristst leg positioner. The hip was then prepped and draped in sterile fashion. A timeout was done and the patient and the operative extremity was properly identified. An anterior approach was used. Dissection was taken down through the fascia and the tensor muscle belly was retracted laterally and the rectus was retracted medially. The circumflex vessels were identified and ligated. The capsule was then incised and tagged for later repair. The femoral neck was then cut and the femoral head was removed. The acetabulum was exposed. Time was spent doing a complete circumferential labral release. Sequential reaming of the acetabulum up to a size 51 reamer was done. Final reamings were done under fluoroscopy to ensure appropriate version. A Biomet 52 mm G7 cup was then impacted into place. A single 25 mm screw was placed. The E1 polyethylene liner was then snapped into place. Surrounding soft tissues were then injected with 100 cc of an orthopedic pain control cocktail. The proximal femur was then exposed. Sequential broaching up to a size 11 broach was done. Off that broach a size 36 head with a +9 neck was trialed. The hip was reduced and fluoroscopic images showed anatomic alignment of the implants in acceptable length. The broach was removed. The final size 9 echo cemented stem was then cemented into place. A ceramic 36 mm head with a + neck was then impacted onto the stem and the hip was reduced. Final fluoroscopic images showed anatomic alignment of the hip. The capsule was then closed with #1 Vicryl suture. A dilute betadyne lavage was then done for 3 minutes. The joint was then irrigated with normal saline solution. The fascia was closed with #1 PDS suture. Skin was closed with 2-0 Vicryl, rosana, and a Silverlon dressing. He was then transferred to a hospital bed and taken to the post anesthesia care unit in stable condition. He tolerated the procedure well. Rell Garvin PA-C, was present for the entire procedure. He was critical for patient positioning, prepping, draping, retraction exposure, wound closure and application of sterile dressing. I attest to the content of the Intraoperative Record and any orders documented therein. Any exceptions are noted below.
--- NOTE | 2024-08-29 11:53 | XRay Report ---
XR hip 1V RT w pelvis CLINICAL HISTORY: IN PACU - Post Surgical COMPARISON: Right hip radiographs May 16, 2024. FINDINGS: Alignment of the total right hip arthroplasty is anatomic. There is no periprosthetic frac ture or unexpected radiopaque foreign body. There are skin rosana. Incidental note is made of brachy therapy seeds within the prostate. IMPRESSION: Expected findings following total right hip arthroplasty. ACT 112: Negative or not required by law. Electronically signed by: Harjeet Jacques M.D. 08/29/2024 11:51 AM
--- NOTE | 2024-08-29 12:04 | Fluoroscopy Report ---
FL hip RT 1V CLINICAL HISTORY: RT ANTERIOR MARKUS COMPARISON STUDY: Right hip radiographs May 16, 2024. FLUOROSCOPY TIME: 16 seconds. Ka,r: 3.1450 mGy FLUOROSCOPIC IMAGES: 1 FINDINGS: Fluoroscopy was provided during total anterior right hip arthroplasty. Alignment is anatomi c. There is an acetabular screw. There are no fractures. Incidental note is made of brachytherapy see ds within the prostate. IMPRESSION: Fluoroscopy provided during anterior total right hip arthroplasty. ACT 112: Negative or not required by law. Electronically signed by: Harjeet Jacques M.D. 08/29/2024 12:03 PM
[2024-08-29] MEDS ORDERED: MECLIZINE HCL 25 MG TAB PO PRN (12:38)
[2024-08-29] MEDS ORDERED: NALOXONE HCL 0.4 MG/1 ML VIAL/CARP IV PRN (12:38)
[2024-08-29] MEDS ORDERED: HYDROmorphone INJ 0.5 MG/0.5 ML SYR IV PRN (12:38)
[2024-08-29] MEDS ORDERED: METOCLOPRAMIDE HCL INJ 5 MG/ML 2 ML VIAL IV PRN (12:38)
[2024-08-29] MEDS ORDERED: oxyCODONE HCL IR 5 MG TAB (IMMEDIATE RELEASE) PO PRN (12:38)
[2024-08-29] MEDS ORDERED: bisacodyL 10 MG SUPP PR PRN (12:38)
--- NOTE | 2024-08-29 14:46 | Anesthesiology Progress Note ---
Date of Service August 29, 2024 Anesthesia Post Procedure Vital Signs Vital Signs: Temp Pulse Pulse Resp BP BP Pulse Ox 08/29/24 14:24 36.3 C L 81 16 121/63 96 08/29/24 13:37 36.4 C L 89 16 136/61 91 08/29/24 13:05 36.4 C L 67 16 143/70 H 94 08/29/24 12:36 36.5 C 89 16 165/69 H 91 08/29/24 12:20 86 13 153/66 H 94 08/29/24 12:10 80 12 133/62 94 08/29/24 12:00 36.4 C L 86 14 140/72 97 08/29/24 11:50 86 19 152/64 H 95 08/29/24 11:40 89 14 133/57 L 95 08/29/24 11:30 36.2 C L 85 16 101/83 95 08/29/24 07:19 36.5 C 94 H 20 141/83 H 97 O2 Del Method O2 Flow Rate 08/29/24 14:24 Nasal Cannula 3 08/29/24 13:37 Nasal Cannula 3 08/29/24 13:05 Nasal Cannula 3 08/29/24 12:36 Nasal Cannula 3 08/29/24 12:20 Nasal Cannula 3 08/29/24 12:10 Nasal Cannula 3 08/29/24 12:00 Nasal Cannula 3 08/29/24 11:50 Oxymask 8 08/29/24 11:40 Oxymask 15 08/29/24 11:30 Oxymask 15 08/29/24 07:19 Room Air Pain Intensity Right Hip: Pain Intensity: 10 Transfer of Care Handoff Completed per policy Notes Mental Status: alert / awake / arousable and participated in evaluation Patient Amnestic to Procedure: Yes Nausea / Vomiting: adequately controlled Pain: adequately controlled Airway Patency, RR, SpO2: stable & adequate BP & HR: stable & adequate Hydration State: stable & adequate Anesthetic Complications: no major complications apparent and Pt Satisfied with anesthetic care
[2024-08-29] MEDS ORDERED: NON-FORMULARY MEDICATION (Vit C,E-Zn-Coppr-Lutein-Zeaxan [Preservision Areds-2] 250-90-40- PO SCH (21:00)
[2024-08-29] MEDS: NYSTATIN POWDER 15GM BTL EXT SCH (21:57)
[2024-08-29] MEDS: DOCUSATE SODIUM 100 MG CAP PO SCH (21:57)
[2024-08-29] MEDS: SENNA 8.6 MG TAB PO SCH (21:57)
[2024-08-29] MEDS: PRAVASTATIN SOD 40 MG TAB PO SCH (21:57)
[2024-08-30 07:19] VITALS: RESP 18; TEMP 97.7; O2SAT 95
[2024-08-30] MEDS: ASCORBIC ACID 500 MG TAB PO SCH (07:19)
[2024-08-30] MEDS: CHOLECALCIFEROL 25 MCG (1000 UNITS) TAB PO SCH (07:19)
[2024-08-30] MEDS: APIXABAN 5 MG TABLET PO SCH (07:19)
[2024-08-30] MEDS: CALCIUM 600MG + VIT D 400 IU TAB PO SCH (07:19)
[2024-08-30] MEDS: MULTIVITAMIN TAB PO SCH (07:20)
[2024-08-30] MEDS: TOCOPHERYL, DL-ALPHA 400 UNITS 180 MG CAP PO SCH (07:20)
[2024-08-30] MEDS: hydroCHLOROthiazide 25 MG TAB PO SCH (07:20)
[2024-08-30] MEDS: CYANOCOBALAMIN (B-12) 2,500 MCG TABLET PO SCH (07:20)
[2024-08-30] MEDS: dilTIAZem HCL 180 MG CAPCR PO SCH (07:20)
[2024-08-30] MEDS: PANTOprazole 40 MG TAB PO SCH (07:21)
[2024-08-30] MEDS: POTASSIUM CHLORIDE CRTAB 20 MEQ TABCR PO SCH (08:36)
[2024-08-30] MEDS: MAGNESIUM HYDROXIDE SUSP 30 ML UDC PO PRN (08:38)
--- NOTE | 2024-08-30 09:14 | Orthopedic Progress Note ---
Date of Service August 30, 2024 Assessment & Plan (1) Status post right hip replacement: Overall he is doing very well. He is not having much pain in the right hip. He will be seen by physical therapy today for ambulation and range of motion exercises. He is on Eliquis for DVT prophylaxis. He can be discharged to home later today. He will follow-up orthopedics in 2 weeks. Ramakrishna Chavez was seen and examined at bedside this morning. Overall he is doing very well. He is not having much pain in the right hip. He has been up and ambulating to the bathroom. He has no complaints.. Review of Systems All systems reviewed & are unremarkable except as noted in HPI & below. Physical Exam On physical examination of the right hip, the dressing is clean and dry. His leg is out in full extension. He has active dorsiflexion plantarflexion of the right ankle.. Results & Data Results & Data Laboratory Results . Diagnostic Findings Postoperative x-rays of the right hip show the prosthesis to be in anatomic alignment without any evidence of fracture complication, or loosening.. PG Care Time/CCT Total # of Minutes Spent Total Time Spent with Patient: Total time spent is greater than 50% in coordination of care (as documented) at patient's floor/unit and/or counseling patient: Coding Level of Care Code 09610 Post Operative Follow-Up Diagnoses Status post right hip replacement Z96.641
--- NOTE | 2024-08-30 09:15 | Discharge Summary ---
Date of Service August 30, 2024 Admission HPI (Per Admitting) Scott is a pleasant 84-year-old male who has been dealing with chronic increasing right hip and groin pain. X-rays and clinical examination have been diagnostic for advanced osteoarthritis of the right hip. He already saw my partner who tried an injection of his right hip joint. Unfortunately that provided little relief. He is really struggling with his hip. After failed conservative treatment, he has elected to proceed with a right anterior total of arthroplasty. Admission Exam (Per Admitting) On physical exam of the right hip, he has decreased range of motion. He is pain with internal/external rotation. All of his pain is located in the groin.. Principal Diagnosis Same as "Discharge Diagnosis" noted below under Discharge Instructions. Discharge Exam On physical examination of the right hip, the dressing is clean and dry. His leg is out in full extension. He has active dorsiflexion plantarflexion of the right ankle.. Discharge Data Procedures Performed Operation Date: 08/29/24 09:00 Actual Procedures p Right Anterior Total Hip Arthroplasty - Charly Camara DO Ordered Studies 08/29/24 09:00 FL hip RT 1V Routine Hospital Course (1) Status post right hip replacement: On August 29, 2024 Scott arrived at [facility] and underwent a right hip replacement without complication. He had a general anesthetic. Postoperatively he was started on Eliquis for DVT prophylaxis and transferred to the general orthopedic floors. His hospital course was uneventful. On postop day #1, his vital signs were stable and his pain was well-controlled. He was able to participate well with physical therapy doing ambulation and range of motion exercises. He was then discharged to home. He we will follow-up with orthopedics in 2 weeks. PG Care Time/CCT Total # of Minutes Spent Total Time Spent with Patient: Total time spent is greater than 50% in coordination of care (as documented) at patient's floor/unit and/or counseling patient: Discharge Plan Discharge Items Patient Disposition: Home - Self-Care Reason For Visit: Right Hip Arthritis Discharge Diagnosis: Right hip replacement Activity: Per Instructions section Non-emergency contact: Surgeon Call non-emergency contact if: your wound has increased redness and your wound has increased drainage Follow-up/Referrals: Eliu Manriquez DO [Primary Care Provider] - Diet: Regular Addtl Attending Provider Instructions: Activity and Therapy Recommendations: * If you are using [facility] then therapy will be provided at your home until they feel you have accomplished all of your goals. * If you are using [facility] then Physical Therapy will be provided until they feel you are ready to start Outpatient Physical Therapy. * If you are not using home therapy then Outpatient Physical Therapy should start about 3-5 days from your day of surgery. Therapy will last about 6-10 weeks * You were shown a series of exercises in the hospital. Do these exercises three times each day including the exercises you were shown in physical therapy. * Get up and walk several times each day.~ For the first four weeks, try not to stand or walk for more than one hour at a time. If you do stand or walk for more than one hour, you will not hurt anything, but your leg will likely swell.~~ * As you feel comfortable, you may change from the walker or crutches to a cane and~then to independent walking. Medications: * Narcotic You will likely be sent home from the hospital with a prescription for the narcotic pain medication that worked best throughout your stay. * Cefadroxil -take the antibiotic twice a day for 10 days to help prevent infection. * Continue taking your Eliquis as prescribed * Other medications may be prescribed for specific circumstances. If you have any questions, please call the office at . * Resume previous home medications unless otherwise instructed TEDs/Elastic Stockings: The white elastic stockings help limit swelling and prevent blood clots from forming in your legs. The more you wear them, the more they work. Wear them for six weeks. Dressing Care: Leave the Silverlon dressing in place for 7 days. After 7 days you may remove the dressing. If the incision is not draining then you may leave the rosana open to air. If there is a little bit of drainage or if the rosana are getting stuck on your clothing then cover the incision with a dry dressing. The rosana will be removed at your 2 week follow-up appointment. Showering: You may shower with the Silverlon dressing in place. Do not let the shower spray hit the dressing directly. Pat the Silverlon dressing dry. If the dressing becomes wet underneath, then simply remove the dressing. Keep the incision dry until you are 7 days out from the day of surgery. After 7 days you may remove the Silverlon dressing and shower with the rosana exposed. Let soapy water run over the rosana and pat them dry. Do not scrub or soak the incision. Diet: You may resume your previous diet. Things To Watch For: * Drainage from the incision site that occurs more than one week after your surgery. * Increased redness at the incision site. * Fever above 102 degrees Fahrenheit. * Unusual chest pain or shortness of breath. * Call [facility] at with any of the above problem s Follow-Up Visit: Follow-up with Dr. Camara's office 2-3 weeks after your day of surgery. We will remove your rosana and answer any questions. If you have any additional questions or concerns, Dr Camara is usually in the office at the same time and will be available An appointment was probably scheduled when you signed-up for surgery in the office. If you have any questions call Office Instructions: More detailed instructions as well as Frequently Asked Questions were provided in a folder by our office when you signed-up for surgery. Please review these instructions when you get home. If you have any further questions or concerns, please feel free to call the office at [phone] Pending Studies at Discharge: No Stand-Alone Forms: [facility], Smoking Cessation Medications and DC Order Prescriptions: New oxycodone 5 mg Tablet 5 mg PO Q4H PRN (Reason: pain) Qty: 30 0RF cefadroxil 500 mg capsule 500 mg PO BID 10 Days Qty: 20 0RF Continued vitamin E (dl, acetate) 400 unit capsule 400 units PO QAM ascorbic acid (vitamin C) 100 mg tablet 300 mg PO QAM nystatin 100,000 unit/gram powder 1 applic topical BID Qty: 60 5RF meclizine 25 mg tablet 25 mg PO BID PRN (Reason: Vertigo) Qty: 30 3RF Eliquis 5 mg tablet 5 mg PO BID Qty: 180 3RF hydrochlorothiazide 25 mg tablet 25 mg PO QAM Qty: 90 3RF potassium chloride 20 mEq tablet extended release 20 meq PO QAM Qty: 90 3RF tramadol 50 mg tablet 50 mg PO Q8H PRN (Reason: pain) Qty: 30 0RF gabapentin 100 mg capsule 300 mg PO BID acetaminophen [Tylenol Extra Strength] 500 mg tablet 1,000 mg PO BID cyanocobalamin (vitamin B-12) [Vitamin B-12] 2,500 mcg Tablet, Sublingual 2,500 mcg SUBLINGUAL QAM calcium carbonate-vitamin D3 [Calcium 600 + D(3)] 600 mg(1,500mg) -200 unit Tablet 1 tab PO QAM celecoxib [Celebrex] 200 mg Capsule 200 mg PO QAM pravastatin 40 mg Tablet 40 mg PO BID omeprazole 20 mg Tablet,Delayed Release (Dr/Ec) 20 mg PO QAM cholecalciferol (vitamin D3) [Vitamin D3] 1,000 unit (25 mcg) tablet 2,000 units PO QAM omega 1-afb-sga-fish oil [Fish Oil] 1,000 mg (120 mg-180 mg) capsule 1 cap PO QAM PreserVision AREDS-2 250-90-40-1 mg Capsule 1 tab PO BID diltiazem HCl [Cardizem CD] 180 mg capsule,extended release 24hr 180 mg PO QAM alfuzosin 10 mg tablet extended release 24 hr 10 mg PO QAM Discharge Orders: Discharge Order (Routine); Ordered 08/30/24 Ordered By: Charly Camara Admission Data Admit Date/Time: 08/29/24 11:31 Attending Provider: Charly Camara Admit Provider: Charly Camara Primary Care Provider: Eliu Manriquez Other Providers: [facility],Home Healthcare
[2024-08-30 11:09] VITALS: BP 136/61; PULSE 86
== END 2024-08-30 11:45 | disposition home health service (06) ==
LOC: 3E 06:29 → ASU 06:29

== ENCOUNTER 2024-10-15 05:28 | Inpatient (IN) ==
--- NOTE | 2024-10-15 05:44 | Emergency Department Note ---
Impression & Plan Hypoxia Admission ED Provider Note HPI: History obtained from patient. The patient is a 84-year-old gentleman with history of paroxysmal atrial fibrillation, currently on Eliquis, mixed CHF, who presents the emergency department with a chief complaint of dyspnea. Patient states over the past several weeks he has become more short of breath, he states this has been worsening more acutely over the past several days and therefore he came to the ER this morning to be assessed. Patient was noted to be hypoxic at 81% on room air and was placed on nasal cannula oxygen with good improvement. Patient denies any chest pain but states he does have some "tightness". Patient states he has had a slight cough over the past 2 weeks as well. He denies any fever. Patient is otherwise hemodynamically stable on arrival, he is afebrile on arrival. ROS: - Per HPI Differential Diagnosis: Pneumonia, viral upper respiratory infection to include COVID-19, influenza A, acute CHF exacerbation, COPD, pleural effusion, amongst other potential pathologies. *Outpatient medications and allergy history reviewed. PE: General: Alert HEENT: Normocephalic, trachea midline Eyes: Extraocular eye movement is intact, no scleral erythema Pulmonary: Diminished bilaterally without wheezing or crackles Cardio: Regular rate and rhythm GI: Abdomen is soft to palpation : No suprapubic tenderness MSK: No evidence of trauma or malformation of the extremities, 2+ edema bilateral lower extremities Skin: No evidence of rash Neuro: Alert, no focal deficits Psychiatric: Cooperative INDEPENDENT INTERPRETATIONS: child monitor: (As interpreted by myself): - An order was placed for continuous cardiac monitoring - Patient was noted to be in atrial fibrillation with a rate of 90 EKG: (As interpreted by myself): Rate: 80 Rhythm: Atrial fibrillation Intervals: QRS 148 ms, QTc [address] changes: No ST elevation Time: 0535 Chest x-ray: (As interpreted by myself): Pulmonary vascular congestion Interventions provided in ED: -IV Lasix Medical Decision Making: IV was established and lab work obtained, patient was placed on monitor and storage bin tender. Patient appears fluid overloaded on exam, he has 2+ edema of the bilateral lower extremities that is pitting. Lab work shows no leukocytosis, hemoglobin is stable at 10.9, platelet count is normal, CMP does not show any evidence of any critical findings. Troponin is negative, BNP is mildly elevated at 150. Chest x-ray is concerning for fluid overload/pulmonary vascular congestion. Per radiology interpretation also concern for pleural effusion. Viral panel testing was obtained and the patient is positive for enterovirus/rhinovirus. Given the patient's hypoxia, he will require inpatient admission for further management. [facility] hospitalist service was consulted for admission and the patient was placed for admission in stable condition. Consultants/Discussions held with other healthcare providers: -Hospitalist, Dr. Champion Disposition discussion held by myself with: -Patient * CRITICAL CARE TIME: ( 43 ) minutes -Stabilization of hypoxia with oxygen saturations at 81% on room air requiring 6 L nasal cannula oxygen for correction, time spent at the bedside, interpretation of diagnostic studies, discussion with other healthcare providers and arrangement of admission. Diagnosis: 1. Hypoxia, acute 2. Elevated BNP, acute 3. Enterovirus/rhinovirus positive PCR test, acute 4. Bilateral lower extremity edema, acute Disposition: Admission Elpidio Joel DO Emergency Medicine Past Med/Surg History Problem List (Updated 10/15/24 @ 06:42 by Elpidio Joel DO) Hypoxia (Acute) Status post right hip replacement (~08/2024) ETD (eustachian tube dysfunction) Chronic venous insufficiency Seasonal allergies Hematuria Arthralgia (Chronic) Encounter for pre-operative examination Impotence due to erectile dysfunction (Chronic) Medical History History of vertigo Chronic anemia Osteoarthritis Mitral regurgitation Hypertension Hyperlipidemia Gout GERD (gastroesophageal reflux disease) Diverticular disease Chronic venous insufficiency Left bundle branch block Arthritis of right hip History of prostate cancer History of skin cancer Nonobstructive atherosclerosis of coronary artery Sensorineural hearing loss (SNHL) of both ears Obesity Nonobstructive atherosclerosis of coronary artery Atrial fibrillation Sleep apnea [place] Surgical History History of tooth extraction History of esophagogastroduodenoscopy (EGD) S/P sinus surgery Status post excision of lipoma Difficult airway for intubation History of prostate biopsy S/P UPPP (uvulopalatopharyngoplasty) H/O endoscopic sinus surgery Fatty tumor History of brachytherapy Hx of colonoscopy History of cardiac cath Hx of inguinal hernia surgery History of cataract surgery History of bunionectomy H/O total knee replacement S/P repair of hydrocele History of cholecystectomy H/O Spinal surgery Family History Mother Breast cancer Bowel cancer Cancer Father Atherosclerosis Peripheral vascular disease Hypertension Heart disease Sister Breast cancer Bowel cancer Cardiac arrhythmia Stroke Cancer Son No problems noted. Son No problems noted. Daughter Anal cancer Other Hearing loss No family history of adverse response to anesthesia No family history of bleeding disorder Social History Smoking Status: Former smoker Tobacco Type: Cigarettes Second Hand Exposure: No; Do You Dip or Chew Tobacco: No; Hx Alcohol Use: No Hx Substance Use: No Preferred Language: Setswana Communication Ability: Effective Visual Impairment: No Limitations Hearing Ability: Use of Hearing Aid (Bilateral hearing aids at home;) Proposal Lead Writer Required: No Beliefs That Will Affect Care: None marital status: Current Living Situation: Alone current occupational status: retired current occupation: Worked for [employer] Feels Safe at Home: Yes Diet: other caffeine: Yes (1 cup/day) during the past year weight has: remained stable Assistive Devices: CPAP and Walker Allergies Allergies Allergy/AdvReac Type Severity Reaction Status Date / Time finasteride Allergy Severe SOB Verified 09/16/24 11:24 zolpidem Allergy Severe Facial Verified 09/16/24 11:24 swelling, lip swelling alendronate sodium Allergy Intermediate Hives Verified 09/16/24 11:24 [id number]-[id number]-OxQ Reductase Allergy Intermediate Vertigo Verified 09/16/24 11:24 Inhibitor [Covagij-Mni-Aqy Reductase Inhibitor] tamsulosin Allergy Intermediate Hives Verified 09/16/24 11:24 adhesive AdvReac Mild "Pulled Verified 09/16/24 11:24 skin" Home Meds Home Medications Medication Instructions Recorded Confirmed celecoxib 200 mg capsule (Celebrex) 200 mg PO QAM 01/20/19 09/16/24 omeprazole 20 mg tablet,delayed 20 mg PO QAM 01/20/19 09/16/24 release pravastatin 40 mg tablet 40 mg PO BID 01/20/19 09/16/24 cholecalciferol (vitamin D3) 25 2,000 units PO QAM 06/13/19 09/16/24 mcg (1,000 unit) tablet (Vitamin D3) omega 7-dgo-olo-fish oil 1,000 mg 1 cap PO QAM 06/13/19 09/16/24 (120 mg-180 mg) capsule (Fish Oil) vitamin E (dl, acetate) 180 mg 400 units PO QAM 12/05/19 09/16/24 (400 unit) capsule calcium 600 mg (as 1 tab PO QAM 11/09/20 09/16/24 carbonate)-vitamin D3 5 mcg (200 unit) tablet (Calcium 600 + D(3)) cyanocobalamin (vitamin B-12) 2,500 mcg sublingual QAM 11/09/20 09/16/24 2,500 mcg sublingual tablet (Vitamin B-12) ascorbic acid (vitamin C) 100 mg 300 mg PO QAM 12/14/20 09/16/24 tablet acetaminophen 500 mg tablet 1,000 mg PO BID 05/31/21 09/16/24 (Tylenol Extra Strength) gabapentin 100 mg capsule 300 mg PO BID 12/15/21 09/16/24 alfuzosin 10 mg tablet,extended 10 mg PO QAM 08/04/24 09/16/24 release 24 hr diltiazem HCl 180 mg 180 mg PO QAM 08/04/24 09/16/24 capsule,extended release 24 hr (Cardizem CD) vit C 250 mg-vit E 90 mg-zinc 40 1 tab PO BID 08/04/24 09/16/24 mg-copper 1 [id number]-dkgahy capsule (PreserVision AREDS-2) Previous Rx's Medication Instructions Recorded meclizine 25 mg tablet 25 mg PO BID PRN Vertigo #30 tabs 08/17/23 apixaban 5 mg tablet (Eliquis) 5 mg PO BID #180 tabs 09/11/23 nystatin 100,000 unit/gram topical 1 applic topical BID groin 12/25/23 powder irritation #60 grams hydrochlorothiazide 25 mg tablet 25 mg PO QAM #90 tabs 02/21/24 potassium chloride 20 mEq 20 meq PO QAM #90 tabs 06/10/24 tablet,extended release tramadol 50 mg tablet 50 mg PO Q8H PRN pain #30 tabs 08/12/24 oxycodone 5 mg tablet 5 mg PO Q4H PRN pain #30 tabs 09/08/24 sulfamethoxazole 800 1 tab PO BID 7 days #14 tabs 12/10/24 mg-trimethoprim 160 mg tablet (Bactrim DS) amoxicillin 500 mg capsule 500 mg PO ONCE #4 caps 10/07/24 Results & Data (ED) Vital Signs Vital Signs - 24 hr 10/15/24 05:37 10/15/24 05:37 10/15/24 05:42 Temperature 36.5 C Temperature Source Oral Pulse Rate 91 H Pulse Rate [Apical] Respiratory Rate 20 Blood Pressure 128/69 Blood Pressure [Right Arm] Blood Pressure Mean 88 Blood Pressure Mean [Right Arm] Pulse Oximetry 92 81 L 92 Oxygen Delivery Method Nasal Cannula Room Air Nasal Cannula Nasal Cannula Oxygen Flow Rate 6 6 Sepsis Recent Fever Within 48 Hours No Sepsis New/Unexplained Change in Mental Status No Sepsis Action Taken by Nursing No Action Required Oxygen Flow Rate - Titration 6 Pulse Oximetry Post Tiitration 92 10/15/24 05:53 10/15/24 06:11 10/15/24 06:30 Temperature Temperature Source Pulse Rate 86 Pulse Rate [Apical] 83 85 Respiratory Rate 18 18 Blood Pressure Blood Pressure [Right Arm] 132/72 125/76 Blood Pressure Mean Blood Pressure Mean [Right Arm] 92 92 Pulse Oximetry 93 92 Oxygen Delivery Method Nasal Cannula Nasal Cannula Oxygen Flow Rate 6 6 Sepsis Recent Fever Within 48 Hours Sepsis New/Unexplained Change in Mental Status Sepsis Action Taken by Nursing Oxygen Flow Rate - Titration Pulse Oximetry Post Tiitration Laboratory Data 10/15/24 05:40 10/15/24 05:40 Lab Results 10/15/24 Range/Units 05:40 WBC 5.31 (4.8-10.8) K/ul RBC 3.47 L (4.70-6.10) M/uL Hgb 10.9 L (14.0-18.0) g/dl Hct 33.3 L (42.0-52.0) % MCV 96.0 (80.0-100.0) fL MCH 31.4 (25.0-34.0) pg MCHC 32.7 (32.0-36.0) g/dL RDW Std Deviation 55.6 H (36.4-46.3) fL RDW Coeff of Mauri 15.7 H (11.5-14.5) % Plt Count 194 (130-400) K/uL MPV 11.1 (9.4-12.4) fL Immature Gran % (Auto) 0.2 % Neut % (Auto) 73.0 % Lymph % (Auto) 13.9 % [place] % (Auto) 8.7 % Eos % (Auto) 3.8 % Baso % (Auto) 0.4 % Neut # (Auto) 3.88 (1.40-6.50) K/uL Lymph # (Auto) 0.74 L (1.20-3.40) K/uL [place] # (Auto) 0.46 (0.11-0.59) K/uL Eos # (Auto) 0.20 (0.00-0.50) K/uL Baso # (Auto) 0.02 (0.00-0.20) K/uL Immature Gran # (Auto) 0.01 (0.01-0.20) K/uL PT 11.4 (9.0-12.0) Seconds INR 1.1 (0.9-1.1) APTT 31 (21-31) Seconds PTT Ratio 1.2 VBG pH 7.44 H (7.36-7.41) VBG pCO2 43 (38-50) mmHg VBG pO2 29 mmHg VBG HCO3 29 mmol/L VBG O2 Saturation < 60.0 % VBG Base Excess 4.4 mEq/L Sodium 140 (136-145) mmol/L Potassium 3.5 (3.5-5.1) mmol/L Chloride 103 (98-107) mmol/L Carbon Dioxide 29 (21-32) mmol/L Anion Gap 8 (3-11) BUN 29 H (6-23) mg/dl Creatinine 1.18 (0.6-1.4) mg/dl Est Cr Clr Drug Dosing 54.5 ml/min eGFR 60.47 BUN/Creatinine Ratio 24.6 H (10-20) Glucose 104 H (70-99(Fasting)) mg/dl Calcium 9.1 (8.6-10.3) mg/dl Total Bilirubin 0.5 (0.2-1.0) mg/dl AST 20 (13-39) U/L ALT 13 (7-52) U/L Alkaline Phosphatase 105 H (34-104) U/L Troponin I High Sens 13.7 (0-20) pg/ml B-Natriuretic Peptide 150 H (0-100) pg/ml Total Protein 6.8 (6.0-8.3) gm/dl Albumin 3.9 (3.4-5.0) gm/dl Globulin 2.9 (2.5-4.0) gm/dl Albumin/Globulin Ratio 1.3 (0.9-2) Adenovirus (PCR) Not Detected (NotDetected) B. pertussis DNA (PCR) Not Detected (NotDetected) B.parapertussis DNA PCR Not Detected (NotDetected) C. pneumoniae DNA (PCR) Not Detected (NotDetected) Coronavirus OC43 (PCR) Not Detected (NotDetected) Coronavirus HKU1 (PCR) Not Detected (NotDetected) Coronavirus 229E (PCR) Not Detected (NotDetected) SARS-CoV-2 (PCR) Not Detected (NotDetected) Coronavirus NL63 (PCR) Not Detected (NotDetected) Human Metapneumovir PCR Not Detected (NotDetected) Influenza Type A (PCR) Not Detected (NotDetected) Influenza Type B (PCR) Not Detected (NotDetected) M. pneumoniae (PCR) Not Detected (NotDetected) Parainfluenza 1 (PCR) Not Detected (NotDetected) Parainfluenza 2 (PCR) Not Detected (NotDetected) Parainfluenza 3 (PCR) Not Detected (NotDetected) Parainfluenza 4 (PCR) Not Detected (NotDetected) RSV (PCR) Not Detected (NotDetected) Entero/Rhino (PCR) DETECTED A (NotDetected) Administered Medications Discontinued Medications Furosemide (Furosemide 40 Mg/4 Ml Vial) 40 mg IV ONE ONE Stop: 10/15/24 06:38 Last Admin: 10/15/24 06:51 Dose: 40 mg Documented By: AN Imaging Data Radiologist's Impression: Chest X-Ray 10/15/24 05:32 EXAM: XR chest 1V portable CLINICAL HISTORY: Shortness of breath TECHNIQUE: An X-ray image of the chest is obtained in AP projection. COMPARISON: No prior studies are available for comparison. FINDINGS: Pulmonary Parenchyma: Inhomogenous airspace opacification is seen in bilateral lung lower zones with obscuration of bilateral costophrenic angles suggestive of pleural effusion with underlying collapse/consolidation. No pneumothorax. Heart and Mediastinum: Cardiomegaly. No mediastinal widening or masses. No hilar or mediastinal lymphadenopathy. Bony Thorax: Bony thorax appears intact without fractures or deformities. Thoracic spine spondylotic changes. Soft Tissues: Soft tissues overlying the chest wall are unremarkable. IMPRESSION: 1. Inhomogenous airspace opacification is seen in bilateral lung lower zones with obscuration of bilateral costophrenic angles suggestive of pleural effusion with underlying collapse/consolidation. 2. Cardiomegaly. Electronically signed by Nena Sands 10-15-2024 06:35 AM Discharge Plan Visit Data Chief Complaint: Shortness of Breath/Dyspnea Stated Complaint: SHORTNESS OF BREATH X FEW WEEKS ED Provider: Elpidio Joel Discharge Problem: Hypoxia Forms Stand Alone Forms: [facility] [place] [employer] Prescriptions Prescriptions: No Action vitamin E (dl, acetate) 400 unit capsule 400 units PO QAM ascorbic acid (vitamin C) 100 mg tablet 300 mg PO QAM nystatin 100,000 unit/gram powder 1 applic topical BID Qty: 60 5RF meclizine 25 mg tablet 25 mg PO BID PRN (Reason: Vertigo) Qty: 30 3RF Eliquis 5 mg tablet 5 mg PO BID Qty: 180 3RF hydrochlorothiazide 25 mg tablet 25 mg PO QAM Qty: 90 3RF potassium chloride 20 mEq tablet extended release 20 meq PO QAM Qty: 90 3RF tramadol 50 mg tablet 50 mg PO Q8H PRN (Reason: pain) Qty: 30 0RF oxycodone 5 mg tablet 5 mg PO Q4H PRN (Reason: pain) Qty: 30 0RF gabapentin 100 mg capsule 300 mg PO BID acetaminophen [Tylenol Extra Strength] 500 mg tablet 1,000 mg PO BID amoxicillin 500 mg capsule 500 mg PO ONCE Qty: 4 0RF Rx Instructions: 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 sulfamethoxazole-trimethoprim [Bactrim DS] 800-160 mg tablet 1 tab PO BID 7 Days Qty: 14 0RF cyanocobalamin (vitamin B-12) [Vitamin B-12] 2,500 mcg Tablet, Sublingual 2,500 mcg SUBLINGUAL QAM calcium carbonate-vitamin D3 [Calcium 600 + D(3)] 600 mg(1,500mg) -200 unit Tablet 1 tab PO QAM celecoxib [Celebrex] 200 mg Capsule 200 mg PO QAM pravastatin 40 mg Tablet 40 mg PO BID omeprazole 20 mg Tablet,Delayed Release (Dr/Ec) 20 mg PO QAM cholecalciferol (vitamin D3) [Vitamin D3] 1,000 unit (25 mcg) tablet 2,000 units PO QAM omega 3-nrf-mdx-fish oil [Fish Oil] 1,000 mg (120 mg-180 mg) capsule 1 cap PO QAM PreserVision AREDS-2 250-90-40-1 mg Capsule 1 tab PO BID diltiazem HCl [Cardizem CD] 180 mg capsule,extended release 24hr 180 mg PO QAM alfuzosin 10 mg tablet extended release 24 hr 10 mg PO QAM Referrals Referrals: Eliu Manriquez DO [Primary Care Provider] -
[2024-10-15 05:51] LABS: Base Excess VBG 4.4 mEq/L; HCO3 VBG 29 mmol/L; Oxygen Saturation VBG < 60.0 %; PCO2 VBG 43 mmHg (38-50); PO2 VBG 29 mmHg; pH VBG 7.44 (7.36-7.41)
[2024-10-15 06:10] LABS: Basophils # (auto) 0.02 K/uL (0.00-0.20); Basophils % (auto) 0.4 %; Eosinophils % (auto) 3.8 %; Hematocrit (blood only) 33.3 % (42.0-52.0); Hemoglobin 10.9 g/dl (14.0-18.0); Immature Granulocytes # (auto) 0.01 K/uL (0.01-0.20); Immature Granulocytes % (auto) 0.2 %; Lymphocytes # (auto) 0.74 K/uL (1.20-3.40); Lymphocytes % (auto) 13.9 %; Mean Corpuscular Hemoglobin 31.4 pg (25.0-34.0); Mean Corpuscular Hgb Conc 32.7 g/dL (32.0-36.0); Mean Platelet Volume 11.1 fL (9.4-12.4); Monocytes # (auto) 0.46 K/uL (0.11-0.59); Monocytes % (auto) 8.7 %; Neutrophils # (auto) 3.88 K/uL (1.40-6.50); Platelet Count 194 K/uL (130-400); RDW Coefficient of Variation 15.7 % (11.5-14.5); RDW Standard Deviation 55.6 fL (36.4-46.3); Red Blood Count 3.47 M/uL (4.70-6.10); White Blood Count 5.31 K/ul (4.8-10.8)
[2024-10-15 06:16] LABS: Albumin Globulin Ratio 1.3 (0.9-2); Albumin Level 3.9 gm/dl (3.4-5.0); BUN Creatinine Ratio 24.6 (10-20); Bilirubin,Total 0.5 mg/dl (0.2-1.0); Calcium 9.1 mg/dl (8.6-10.3); Creatinine Clr Calc Pharmacy 54.5 ml/min; Globulin 2.9 gm/dl (2.5-4.0); Potassium 3.5 mmol/L (3.5-5.1); Total Protein 6.8 gm/dl (6.0-8.3)
[2024-10-15 06:24] LABS: INR 1.1 (0.9-1.1); Partial Thromboplastin Ratio 1.2; Partial Thromboplastin Time 31 Seconds (21-31); Prothrombin Time 11.4 Seconds (9.0-12.0); Troponin I High Sensitivity 13.7 pg/ml (0-20)
--- NOTE | 2024-10-15 06:35 | XRay Report ---
EXAM: XR chest 1V portable CLINICAL HISTORY: Shortness of breath TECHNIQUE: An X-ray image of the chest is obtained in AP projection. COMPARISON: No prior studies are available for comparison. FINDINGS: Pulmonary Parenchyma: Inhomogenous airspace opacification is seen in bilateral lung lower zones with obscuration of bilateral costophrenic angles suggestive of pleural effusion with underlying collapse/consolidation. No pneumothorax. Heart and Mediastinum: Cardiomegaly. No mediastinal widening or masses. No hilar or mediastinal lymphadenopathy. Bony Thorax: Bony thorax appears intact without fractures or deformities. Thoracic spine spondylotic changes. Soft Tissues: Soft tissues overlying the chest wall are unremarkable. IMPRESSION: 1. Inhomogenous airspace opacification is seen in bilateral lung lower zones with obscuration of bilateral costophrenic angles suggestive of pleural effusion with underlying collapse/consolidation. 2. Cardiomegaly. Electronically signed by Nena Sands 10-15-2024 06:35 AM
[2024-10-15 06:44] LABS: Adenovirus PCR Not Detected (NotDetected); Bordetella parapertussis PCR Not Detected (NotDetected); Bordetella pertussis PCR Not Detected (NotDetected); Chlamydia pneumoniae PCR Not Detected (NotDetected); Coronavirus 229E PCR Not Detected (NotDetected); Coronavirus CoV-2 (COVID19)PCR Not Detected (NotDetected); Coronavirus HKU1 PCR Not Detected (NotDetected); Coronavirus NL63 PCR Not Detected (NotDetected); Coronavirus OC43PCR Not Detected (NotDetected); Human Metapneumovirus PCR Not Detected (NotDetected); Influenza A PCR Not Detected (NotDetected); Influenza B PCR Not Detected (NotDetected); Mycoplasma pneumoniae PCR Not Detected (NotDetected); Parainfluenza Virus 1 PCR Not Detected (NotDetected); Parainfluenza Virus 2 PCR Not Detected (NotDetected); Parainfluenza Virus 3 PCR Not Detected (NotDetected); Parainfluenza Virus 4 PCR Not Detected (NotDetected); Respiratory Syncytial VirusPCR Not Detected (NotDetected); Rhinovirus/Enterovirus PCR DETECTED (NotDetected)
[2024-10-15] MEDS: FUROSEMIDE 40 MG/4 ML VIAL IV ONE (06:51)
--- NOTE | 2024-10-15 07:38 | History & Physical Report ---
Date of Service October 15, 2024 Assessment & Plan (1) Acute on chronic systolic CHF (congestive heart failure): Plan: Last echocardiogram from 2020 showed ejection fraction 45 to 50%, will repeat echocardiogram, chest x-ray is vividly showing bilateral pulmonary edema and this goes with other symptoms that he had with orthopnea, PND and bilateral peripheral edema of lower extremities, will use Lasix 40 mg IV twice daily, monitor intake and output, will see how he responds to treatment and might regulate medications. Will insert Vides catheter for accurate intake and output monitoring. Continue with Pravachol 40 mg twice daily. Patient is regularly being followed up by Dr. Tenorio. (2) Acute hypoxemic respiratory failure: Plan: Current hypoxemia is likely as a result of pulmonary edema, will diurese and monitor response, ideally will try to wean him off oxygen if possible, continue nasal cannula and wean as able. (3) Dyslipidemia: Plan: Continue with home dose statin. (4) Hypertension, essential: Plan: Blood pressure is controlled, continue with Cardizem, will decide if he needs any additional treatment. (5) Chronic atrial fibrillation: Plan: Heart rate is controlled, continue with Eliquis and continue with Cardizem CD100 80 mg daily. (6) Class II obesity: Plan: BMI is 38. Plan Patient will be placed in observation for overnight diuresis and to see how he responds to treatment, get echocardiogram, based on the findings, we will try to adjust his medication based on GDTM. Reevaluate closely. Monitor intake and output. History of Present Illness Chief Complaint: Shortness of breath/leg edema Primary Care Provider: Eliu Manriquez DO patient patient is a very pleasant 84-year-old gentleman with obesity class II, hypertension, dyslipidemia, chronic left bundle branch block, coronary artery disease, chronic systolic CHF with last ejection fraction of 45 to 50% in 2020, also JONAH on nocturnal CPAP and atrial fibrillation on anticoagulation with Eliquis. Patient has normally been able to ambulate indoor and outdoor, he noticed that over the past 2 weeks he was gradually getting more short of breath both during exertion and at rest, he then noticed that his leg started swelling up bilaterally, he wakes up about several times at night to go to urinate which is not changed, he has to prop himself up because of his sleep apnea and he is a side sleeper. He did not report any new ill contact, he came to the hospital mainly because of worsening breathing, he was found to be positive for rhinovirus. However more important than that, he was found to have bilateral pulmonary edema, based on the chest x-ray. Patient was also having acute hypoxemic respiratory failure requiring to be on 3 to 4 L of oxygen to achieve oxygen saturation of 90%. On examination he had some wheezing especially on the left side and diminished breath sound bilaterally with some crackles. Patient was seen and examined in the ER, with impression of acute on chronic systolic CHF likely brought by recent viral infection and for further workup, patient be placed in observation Allergies Allergy/AdvReac Type Severity Reaction Status Date / Time finasteride Allergy Severe SOB Verified 09/16/24 11:24 zolpidem Allergy Severe Facial Verified 09/16/24 11:24 swelling, lip swelling alendronate sodium Allergy Intermediate Hives Verified 09/16/24 11:24 Yhqwlbk-EPJ-GtK Reductase Allergy Intermediate Vertigo Verified 09/16/24 11:24 Inhibitor [Ycjkjwh-Mpj-Ghc Reductase Inhibitor] tamsulosin Allergy Intermediate Hives Verified 09/16/24 11:24 adhesive AdvReac Mild "Pulled Verified 09/16/24 11:24 skin" Home Medications Medication Instructions Recorded Confirmed Type celecoxib 200 mg capsule (Celebrex) 200 mg PO QAM 01/20/19 09/16/24 History omeprazole 20 mg tablet,delayed 20 mg PO QAM 01/20/19 09/16/24 History release pravastatin 40 mg tablet 40 mg PO BID 01/20/19 09/16/24 History cholecalciferol (vitamin D3) 25 2,000 units PO QAM 06/13/19 09/16/24 History mcg (1,000 unit) tablet (Vitamin D3) omega 4-eop-epv-fish oil 1,000 mg 1 cap PO QAM 06/13/19 09/16/24 History (120 mg-180 mg) capsule (Fish Oil) vitamin E (dl, acetate) 180 mg 400 units PO QAM 12/05/19 09/16/24 History (400 unit) capsule calcium 600 mg (as 1 tab PO QAM 11/09/20 09/16/24 History carbonate)-vitamin D3 5 mcg (200 unit) tablet (Calcium 600 + D(3)) cyanocobalamin (vitamin B-12) 2,500 mcg sublingual QAM 11/09/20 09/16/24 History 2,500 mcg sublingual tablet (Vitamin B-12) ascorbic acid (vitamin C) 100 mg 300 mg PO QAM 12/14/20 09/16/24 History tablet acetaminophen 500 mg tablet 1,000 mg PO BID 05/31/21 09/16/24 History (Tylenol Extra Strength) gabapentin 100 mg capsule 300 mg PO BID 12/15/21 09/16/24 History meclizine 25 mg tablet 25 mg PO BID PRN Vertigo #30 tabs 08/17/23 09/16/24 Rx apixaban 5 mg tablet (Eliquis) 5 mg PO BID #180 tabs 09/11/23 09/16/24 Rx nystatin 100,000 unit/gram topical 1 applic topical BID groin 12/25/23 09/16/24 Rx powder irritation #60 grams hydrochlorothiazide 25 mg tablet 25 mg PO QAM #90 tabs 02/21/24 09/16/24 Rx potassium chloride 20 mEq 20 meq PO QAM #90 tabs 06/10/24 09/16/24 Rx tablet,extended release alfuzosin 10 mg tablet,extended 10 mg PO QAM 08/04/24 09/16/24 History release 24 hr diltiazem HCl 180 mg 180 mg PO QAM 08/04/24 09/16/24 History capsule,extended release 24 hr (Cardizem CD) vit C 250 mg-vit E 90 mg-zinc 40 1 tab PO BID 08/04/24 09/16/24 History mg-copper 1 jg-ajjmep-dvlevi capsule (PreserVision AREDS-2) tramadol 50 mg tablet 50 mg PO Q8H PRN pain #30 tabs 08/12/24 09/16/24 Rx oxycodone 5 mg tablet 5 mg PO Q4H PRN pain #30 tabs 09/08/24 09/16/24 Rx sulfamethoxazole 800 1 tab PO BID 7 days #14 tabs 09/16/24 09/16/24 Rx mg-trimethoprim 160 mg tablet (Bactrim DS) amoxicillin 500 mg capsule 500 mg PO ONCE #4 caps 10/07/24 10/07/24 Rx Past Med/Surg History Problem List (Updated 10/15/24 @ 07:43 by Sarah Champion MD) Class II obesity Chronic atrial fibrillation Hypertension, essential Dyslipidemia Acute hypoxemic respiratory failure Acute on chronic systolic CHF (congestive heart failure) Hypoxia (Acute) Status post right hip replacement (~08/2024) ETD (eustachian tube dysfunction) Chronic venous insufficiency Seasonal allergies Hematuria Arthralgia (Chronic) Encounter for pre-operative examination Impotence due to erectile dysfunction (Chronic) Medical History History of vertigo Chronic anemia Osteoarthritis Mitral regurgitation Hypertension Hyperlipidemia Gout GERD (gastroesophageal reflux disease) Diverticular disease Chronic venous insufficiency Left bundle branch block Arthritis of right hip History of prostate cancer History of skin cancer Nonobstructive atherosclerosis of coronary artery Sensorineural hearing loss (SNHL) of both ears Obesity Nonobstructive atherosclerosis of coronary artery Atrial fibrillation Sleep apnea [place] Surgical History History of tooth extraction History of esophagogastroduodenoscopy (EGD) S/P sinus surgery Status post excision of lipoma Difficult airway for intubation History of prostate biopsy S/P UPPP (uvulopalatopharyngoplasty) H/O endoscopic sinus surgery Fatty tumor History of brachytherapy Hx of colonoscopy History of cardiac cath Hx of inguinal hernia surgery History of cataract surgery History of bunionectomy H/O total knee replacement S/P repair of hydrocele History of cholecystectomy H/O Spinal surgery Family History Mother Breast cancer Bowel cancer Cancer Father Atherosclerosis Peripheral vascular disease Hypertension Heart disease Sister Breast cancer Bowel cancer Cardiac arrhythmia Stroke Cancer Son No problems noted. Son No problems noted. Daughter Anal cancer Other Hearing loss No family history of adverse response to anesthesia No family history of bleeding disorder Social History Smoking Status: Former smoker Tobacco Type: Cigarettes Second Hand Exposure: No; Do You Dip or Chew Tobacco: No; Hx Alcohol Use: No Hx Substance Use: No Preferred Language: Faroese Communication Ability: Effective Visual Impairment: No Limitations Hearing Ability: Use of Hearing Aid (Bilateral hearing aids at home;) Phys Ther Required: No Beliefs That Will Affect Care: None marital status: Current Living Situation: Alone current occupational status: retired current occupation: Worked for [employer] Feels Safe at Home: Yes Diet: other caffeine: Yes (1 cup/day) during the past year weight has: remained stable Assistive Devices: CPAP and Walker Review of Systems Review of Systems: Constitutional: No Weight Change, No Fever, No Chills, No Night Sweats, No Fatigue, No Malaise ENT/Mouth: No Hearing Changes, No Ear Pain, No Nasal Congestion, No Sinus Pain, No Hoarseness, No sore throat, No Rhinorrhea, No Swallowing Difficulty Eyes: No Eye Pain, No Swelling, No Redness, No Foreign Body, No Discharge, No Vision Changes Cardiovascular: No Chest Pain, positive for shortness of breath, PND and dyspnea on exertion and peripheral edema. Respiratory: No Cough, No Sputum, No Wheezing, No Smoke Exposure, positive for shortness of breath Gastrointestinal: No Nausea, No Vomiting, No Diarrhea, No Constipation, No Pain, No Heartburn, No Anorexia, No Dysphagia, No Hematochezia, No Melena, No Flatulence, No Jaundice Genitourinary: No Dysmenorrhea, No DUB, No Dyspareunia, No Dysuria, No Urinary Frequency, No Hematuria, No Urinary Incontinence, No Urgency, No Flank Pain, No Urinary Flow Changes, No Hesitancy Musculoskeletal: No Arthralgias, No Myalgias, No Joint Swelling, No Joint Stiffness, No Back Pain, No Neck Pain, No Injury History Skin: No Skin Lesions, No Pruritis, No Hair Changes, No Breast/Skin Changes, No Nipple Discharge Neuro: No Weakness, No Numbness, No Paresthesias, No Loss of Consciousness, No Syncope, No Dizziness, No Headache, No Coordination Changes, No Recent Falls Psych: No Anxiety/Panic, No Depression, No Insomnia, No Personality Changes, No Delusions, No Rumination, No SI/HI/AH/VH, No Social Issues, No Memory Changes, No Violence/Abuse Hx., No Eating Concerns Heme/Lymph: No Bruising, No Bleeding, No Transfusions History, No Lymphadenopathy Endocrine: No Polyuria, No Polydipsia, No Temperature Intolerance Physical Exam Physical Exam: VITALS: Reviewed. WEIGHT/BMI reviewed. GEN: Healthy appearing, well-developed, NAD. -Mouth and throat: MMM. Normal gums, muc jonah, palate,. Good dentition. NECK: Supple, with no masses. CV: Irregularly irregular rhythm, no murmur LUNGS: Diminished breath sounds bilaterally, some basilar crackles bilaterally, mild expiratory wheeze on the left side predominantly without prolongation of expiration. ABD: Obese, soft, NT/ND, NBS, no masses or organomegaly. : N/A SKIN: Warm, well perfused. No skin rashes or abnormal lesions. MSK: No deformities, Normal gait. EXT: 3+ pedal edema pitting bilateral NEURO: Normal muscle strength and tone. No focal deficits. Results & Data Results & Data Vital Signs (Past 12 Hours) Vital Signs Temp Pulse Pulse Resp BP BP Pulse Ox 10/15/24 06:30 85 18 125/76 92 10/15/24 06:11 83 18 132/72 93 10/15/24 05:53 86 10/15/24 05:42 92 10/15/24 05:37 81 L 10/15/24 05:37 36.5 C 91 H 20 128/69 92 O2 Del Method O2 Flow Rate 10/15/24 06:30 Nasal Cannula 6 10/15/24 06:11 Nasal Cannula 6 10/15/24 05:53 10/15/24 05:42 Nasal Cannula 6 10/15/24 05:37 Room Air, Nasal Cannula 10/15/24 05:37 Nasal Cannula 6 Laboratory Results Laboratory Results - last 24 hr 10/15/24 05:40 WBC 5.31 RBC 3.47 L Hgb 10.9 L Hct 33.3 L MCV 96.0 MCH 31.4 MCHC 32.7 RDW Std Deviation 55.6 H RDW Coeff of Mauri 15.7 H Plt Count 194 MPV 11.1 Immature Gran % (Auto) 0.2 Neut % (Auto) 73.0 Lymph % (Auto) 13.9 [place] % (Auto) 8.7 Eos % (Auto) 3.8 Baso % (Auto) 0.4 Neut # (Auto) 3.88 Lymph # (Auto) 0.74 L [place] # (Auto) 0.46 Eos # (Auto) 0.20 Baso # (Auto) 0.02 Immature Gran # (Auto) 0.01 PT 11.4 INR 1.1 APTT 31 PTT Ratio 1.2 VBG pH 7.44 H VBG pCO2 43 VBG pO2 29 VBG HCO3 29 VBG O2 Saturation < 60.0 VBG Base Excess 4.4 Sodium 140 Potassium 3.5 Chloride 103 Carbon Dioxide 29 Anion Gap 8 BUN 29 H Creatinine 1.18 Est Cr Clr Drug Dosing 54.5 eGFR 60.47 BUN/Creatinine Ratio 24.6 H Glucose 104 H Calcium 9.1 Total Bilirubin 0.5 AST 20 ALT 13 Alkaline Phosphatase 105 H Troponin I High Sens 13.7 B-Natriuretic Peptide 150 H Total Protein 6.8 Albumin 3.9 Globulin 2.9 Albumin/Globulin Ratio 1.3 Adenovirus (PCR) Not Detected B. pertussis DNA (PCR) Not Detected B.parapertussis DNA PCR Not Detected C. pneumoniae DNA (PCR) Not Detected Coronavirus OC43 (PCR) Not Detected Coronavirus HKU1 (PCR) Not Detected Coronavirus 229E (PCR) Not Detected SARS-CoV-2 (PCR) Not Detected Coronavirus NL63 (PCR) Not Detected Human Metapneumovir PCR Not Detected Influenza Type A (PCR) Not Detected Influenza Type B (PCR) Not Detected M. pneumoniae (PCR) Not Detected Parainfluenza 1 (PCR) Not Detected Parainfluenza 2 (PCR) Not Detected Parainfluenza 3 (PCR) Not Detected Parainfluenza 4 (PCR) Not Detected RSV (PCR) Not Detected Entero/Rhino (PCR) DETECTED A Diagnostic Findings Chest X-Ray 10/15/24 05:32 EXAM: XR chest 1V portable CLINICAL HISTORY: Shortness of breath TECHNIQUE: An X-ray image of the chest is obtained in AP projection. COMPARISON: No prior studies are available for comparison. FINDINGS: Pulmonary Parenchyma: Inhomogenous airspace opacification is seen in bilateral lung lower zones with obscuration of bilateral costophrenic angles suggestive of pleural effusion with underlying collapse/consolidation. No pneumothorax. Heart and Mediastinum: Cardiomegaly. No mediastinal widening or masses. No hilar or mediastinal lymphadenopathy. Bony Thorax: Bony thorax appears intact without fractures or deformities. Thoracic spine spondylotic changes. Soft Tissues: Soft tissues overlying the chest wall are unremarkable. IMPRESSION: 1. Inhomogenous airspace opacification is seen in bilateral lung lower zones with obscuration of bilateral costophrenic angles suggestive of pleural effusion with underlying collapse/consolidation. 2. Cardiomegaly. Electronically signed by Nena Sands 10-15-2024 06:35 AM Code Status & VTE Plan Code Status Full code VTE Prophylaxis Plan VTE Prophylaxis will be ordered: No Reason for no VTE drug order: Treatment not indicated
[2024-10-15] MEDS ORDERED: MAGNESIUM HYDROXIDE SUSP 30 ML UDC PO PRN (09:04)
[2024-10-15] MEDS ORDERED: POLYETHYLENE (MIRALAX) 17 GM PACK PO PRN (09:04)
[2024-10-15] MEDS ORDERED: ONDANSETRON INJ 2 MG/ML 2 ML VIAL IV PRN (09:04)
[2024-10-15] MEDS: PRAVASTATIN SOD 40 MG TAB PO SCH (10:02)
[2024-10-15] MEDS: GABAPENTIN 300 MG CAP PO SCH (10:02)
[2024-10-15] MEDS: dilTIAZem HCL 180 MG CAPCR PO SCH (10:03)
[2024-10-15] MEDS: APIXABAN 5 MG TABLET PO SCH (10:03)
[2024-10-15] MEDS: FUROSEMIDE 40 MG/4 ML VIAL IV SCH (10:06)
[2024-10-15] MEDS: ALBUT/IPRATROP 3MG/0.5MG NEB 3 ML VIAL NEB SCH (11:10)
--- NOTE | 2024-10-15 17:12 | XCELERA ---
[id number]
[2024-10-15] MEDS: MELATONIN 3 MG TAB PO PRN (22:52)
[2024-10-16 05:14] LABS: Hematocrit (blood only) 30.7 % (42.0-52.0); Hemoglobin 10.1 g/dl (14.0-18.0); Mean Corpuscular Hemoglobin 31.1 pg (25.0-34.0); Mean Corpuscular Hgb Conc 32.9 g/dL (32.0-36.0); Mean Corpuscular Volume 94.5 fL (80.0-100.0); Mean Platelet Volume 10.7 fL (9.4-12.4); Platelet Count 200 K/uL (130-400); RDW Coefficient of Variation 15.7 % (11.5-14.5); RDW Standard Deviation 53.9 fL (36.4-46.3); Red Blood Count 3.25 M/uL (4.70-6.10); White Blood Count 6.33 K/ul (4.8-10.8)
[2024-10-16 05:31] LABS: BUN Creatinine Ratio 22.2 (10-20); Calcium 8.8 mg/dl (8.6-10.3); Potassium 2.9 mmol/L (3.5-5.1)
--- NOTE | 2024-10-16 07:02 | Electrocardiogram Report ---
Test Reason : Blood Pressure : */* mmHG Vent. Rate : 80 BPM Atrial Rate : * BPM P-R Int : * ms QRS Dur : 148 ms QT Int : 452 ms P-R-T Axes : * -6 146 degrees QTcB Int : 521 ms Atrial flutter with premature ventricular or aberrantly conducted complexes Left bundle branch block Abnormal ECG When compared with ECG of 13-Feb-2024 09:48, (unconfirmed) Atrial flutter has replaced Sinus rhythm QRS axis Shifted right QT has lengthened Confirmed by Scott Brannon ([id number]) on 10/16/2024 7:01:28 AM Referred By: REFERRED SELF Confirmed By: Scott Brannon
[2024-10-16] MEDS: POTASSIUM CHLORIDE CRTAB 20 MEQ TABCR PO STA (07:59)
--- NOTE | 2024-10-16 08:55 | Hospitalist Progress Note ---
Date of Service October 16, 2024 Assessment & Plan (1) Acute on chronic systolic CHF (congestive heart failure): Plan: Again the etiology of his precipitating factor in this CHF exacerbation is not clear, because of significant response to current dose of 40 mg twice daily of Lasix, with decrease that to 20 twice daily, monitor electrolytes and replace as needed, monitor intake and output, repeat echocardiogram was noted and this showed that patient has significant rise in his pulmonary artery pressure, patient was recommended to have a referral as outpatient for repeat sleep study. Especially considering that he is unclear whether since last sleep study he gained weight or not.Will repeat chest x-ray tomorrow and determine if he can be transitioned to p.o. Lasix and be discharged. (2) Acute hypoxemic respiratory failure: Plan: Patient continues to remain hypoxemic, at baseline he does not use oxygen, today he is much better than yesterday, he is now saturating 88% on room air, will try to wean over the next 24 hours on ongoing diuresis, reevaluate tomorrow. (3) Dyslipidemia: Plan: Continue with home dose statin. (4) Hypertension, essential: Plan: Blood pressure is controlled, continue with Cardizem, will decide if he needs any additional treatment. (5) Chronic atrial fibrillation: Plan: Heart rate is controlled, continue with Eliquis and continue with Cardizem CD180 mg daily. (6) Class II obesity: Plan: BMI is 38. (7) Hypokalemia: Plan: Potassium was 2.9 today and was replaced, recheck tomorrow, this is as a result of diuresis. (8) Rhinovirus: Plan: Doubt if this has any clinical implication. Plan Continue at reduced dose of Lasix 20 mg IV twice daily, continue monitoring intake and output, chest x-ray tomorrow, try to wean him off oxygen tomorrow and ambulate him and see how he does, potential discharge tomorrow. Admission and Anticipated Discharge Date Admission Date: October 15, 2024 Subjective patient patient is a very pleasant 84-year-old gentleman with obesity class II, hypertension, dyslipidemia, chronic left bundle branch block, coronary artery disease, chronic systolic CHF with last ejection fraction of 45 to 50% in 2020, also JONAH on nocturnal CPAP and atrial fibrillation on anticoagulation with Eliquis. Patient has normally been able to ambulate indoor and outdoor, he noticed that over the past 2 weeks he was gradually getting more short of breath both during exertion and at rest, he then noticed that his leg started swelling up bilaterally, he wakes up about several times at night to go to urinate which is not changed, he has to prop himself up because of his sleep apnea and he is a side sleeper. He says that he is compliant with his nocturnal CPAP. He was admitted with respiratory distress and found to have bilateral pulmonary edema. Echocardiogram was repeated which in fact showed the same LV function as 2022 with ejection fraction 45 to 50%, there is no additional diastolic dysfunction, interestingly his pulmonary artery pressure has gone up to 50-55, this was normal in 202. In this regard I recommended him to repeat his sleep study as outpatient to see if he requires any additional CPAP pressure. On examination today I found that he was stable without any respiratory distress, I took him off oxygen, his oxygen saturation on room air dropped to 88%. I plan to lower the diuresis as he was 5000 mL negative over the past 12 hours, will monitor kidney function, repeat chest x-ray tomorrow and decide if he can be transition to oral Lasix and be discharged. Physical Exam 2 Physical Exam: VITALS: Reviewed. WEIGHT/BMI reviewed. CV: Irregularly irregular rhythm, no murmur LUNGS: Ongoing bibasilar crackles, no wheeze. ABD: Obese, soft, NT/ND, NBS, no masses or organomegaly. : N/A SKIN: Warm, well perfused. No skin rashes or abnormal lesions. EXT: His lower extremity edema in fact are looking much better today, it is more distal now probably around 2+ Results & Data Results & Data Vital Signs (Past 12 Hours) Vital Signs Temp Pulse Pulse Resp BP Pulse Ox O2 Del Method 10/16/24 08:38 36.3 C L 99 H 18 101/52 L 90 10/16/24 08:00 95 H 19 121/71 93 Nasal Cannula 10/16/24 07:27 88 16 126/57 L 94 Nasal Cannula 10/16/24 07:10 87 10/16/24 06:07 75 18 92 Nasal Cannula 10/16/24 06:00 76 22 133/66 92 Nasal Cannula 10/16/24 05:30 104/63 10/16/24 05:00 74 19 103/57 L 94 Nasal Cannula 10/16/24 04:00 78 20 119/66 92 Nasal Cannula 10/16/24 03:30 67 23 117/58 L 94 Nasal Cannula 10/16/24 03:00 80 22 114/64 94 Nasal Cannula 10/16/24 02:00 69 18 108/51 L 94 Nasal Cannula 10/16/24 01:47 65 10/16/24 01:00 78 19 124/48 L 93 Nasal Cannula 10/16/24 00:00 76 19 108/61 92 Nasal Cannula 10/15/24 23:00 80 19 114/49 L 92 Nasal Cannula O2 Flow Rate 10/16/24 08:38 10/16/24 08:00 4 10/16/24 07:27 4 10/16/24 07:10 10/16/24 06:07 6 10/16/24 06:00 6 10/16/24 05:30 10/16/24 05:00 6 10/16/24 04:00 6 10/16/24 03:30 6 10/16/24 03:00 6 10/16/24 02:00 6 10/16/24 01:47 10/16/24 01:00 6 10/16/24 00:00 6 10/15/24 23:00 6 Laboratory Results Laboratory Results - last 24 hr 10/16/24 04:50 WBC 6.33 RBC 3.25 L Hgb 10.1 L Hct 30.7 L MCV 94.5 MCH 31.1 MCHC 32.9 RDW Std Deviation 53.9 H RDW Coeff of Mauri 15.7 H Plt Count 200 MPV 10.7 Sodium 142 Potassium 2.9 L Chloride 102 Carbon Dioxide 32 Anion Gap 8 BUN 28 H Creatinine 1.26 Est Cr Clr Drug Dosing 51.0 eGFR 55.89 BUN/Creatinine Ratio 22.2 H Glucose 102 H Calcium 8.8 Medications Administered Current Inpatient Medications Acetaminophen (Acetaminophen 325 Mg Tab) 650 mg PO Q4H PRN PRN Reason: pain/fever Stop: 11/14/24 09:03 Albuterol (Albut/Ipratrop 3mg/0.5mg Neb 3 Ml Vial) 3 ml NEB QIDR EDNA; Protocol Stop: 11/14/24 10:59 Last Admin: 10/16/24 06:07 Dose: 3 ml Apixaban (Apixaban 5 Mg Tablet) 5 mg PO BID EDNA Stop: 11/14/24 09:03 Last Admin: 10/15/24 21:13 Dose: 5 mg Diltiazem HCl (Diltiazem Hcl 180 Mg Capcr) 180 mg PO QAM [facility] Stop: 11/14/24 09:03 Last Admin: 10/15/24 10:03 Dose: 180 mg Furosemide (Furosemide Inj 20 Mg/2 Ml Vial) 20 mg IV BID17 [facility] Stop: 11/15/24 08:59 Gabapentin (Gabapentin 300 Mg Cap) 300 mg PO BID [facility] Stop: 11/14/24 09:03 Last Admin: 10/15/24 21:13 Dose: 300 mg Magnesium Hydroxide (Magnesium Hydroxide Susp 30 Ml Udc) 30 ml PO Q6H PRN PRN Reason: Constipation Stop: 11/14/24 09:03 Melatonin (Melatonin 3 Mg Tab) 3 mg PO HS PRN PRN Reason: Insomnia Stop: 11/14/24 09:03 Last Admin: 10/15/24 22:52 Dose: 3 mg Miscellaneous (Alfuzosin ~ Order Awaiting Action) 1 each N/A QS [facility] Stop: 11/14/24 15:59 Last Admin: 10/16/24 02:55 Dose: Not Given Ondansetron HCl (Ondansetron Inj 2 Mg/Ml 2 Ml Vial) 4 mg IV Q6H PRN PRN Reason: Nausea Stop: 11/14/24 09:03 Polyethylene Glycol (Polyethylene (Miralax) 17 Gm Pack) 17 gm PO DAILY PRN PRN Reason: Constipation Stop: 11/14/24 09:03 Potassium Chloride (Potassium Chloride Crtab 20 Meq Tabcr) 40 meq PO Q4 [facility] Stop: 10/16/24 12:01 Pravastatin Sodium (Pravastatin Sod 40 Mg Tab) 40 mg PO BID [facility] Stop: 11/14/24 09:03 Last Admin: 10/15/24 21:13 Dose: 40 mg
[2024-10-16] MEDS: POTASSIUM CHLORIDE CRTAB 20 MEQ TABCR PO SCH (09:54)
[2024-10-16] MEDS: FUROSEMIDE INJ 20 MG/2 ML VIAL IV SCH (10:02)
[2024-10-17 06:09] LABS: Basophils # (auto) 0.02 K/uL (0.00-0.20); Basophils % (auto) 0.2 %; Eosinophils # (auto) 0.17 K/uL (0.00-0.50); Eosinophils % (auto) 2.1 %; Hematocrit (blood only) 33.3 % (42.0-52.0); Hemoglobin 10.9 g/dl (14.0-18.0); Immature Granulocytes # (auto) 0.03 K/uL (0.01-0.20); Immature Granulocytes % (auto) 0.4 %; Lymphocytes # (auto) 0.58 K/uL (1.20-3.40); Lymphocytes % (auto) 7.2 %; Mean Corpuscular Hemoglobin 31.4 pg (25.0-34.0); Mean Corpuscular Hgb Conc 32.7 g/dL (32.0-36.0); Mean Platelet Volume 10.8 fL (9.4-12.4); Neutrophils # (auto) 6.41 K/uL (1.40-6.50); Neutrophils % (auto) 80.1 %; Platelet Count 226 K/uL (130-400); RDW Coefficient of Variation 15.6 % (11.5-14.5); RDW Standard Deviation 54.6 fL (36.4-46.3); Red Blood Count 3.47 M/uL (4.70-6.10); White Blood Count 8.01 K/ul (4.8-10.8)
[2024-10-17 06:28] LABS: Calcium 8.9 mg/dl (8.6-10.3); Creatinine Clr Calc Pharmacy 47.5 ml/min; Potassium 3.4 mmol/L (3.5-5.1)
--- NOTE | 2024-10-17 07:57 | XRay Report ---
EXAM: XR chest 1V portable CLINICAL HISTORY: PULMONARY EDEMA, F/U JTF/TGB. TECHNIQUE: An X-ray image of the chest is obtained in 1 AP projection. COMPARISON: Prior study dated 10/15/2024. FINDINGS: Pulmonary Parenchyma: Inhomogenous airspace opacification is seen in bilateral lung lower zones with obscuration of bilateral costophrenic angles more on the left suggestive of pleural effusion with underlying collapse/consolidation. Prominent bilateral bronchovascular markings and hilar vessels No pneumothorax. Heart and Mediastinum: Cardiomegaly. No mediastinal widening or masses. No hilar or mediastinal lymphadenopathy. Bony Thorax: Bony thorax appears intact without fractures or deformities. Thoracic spine spondylotic changes. Soft Tissues: Soft tissues overlying the chest wall are unremarkable. IMPRESSION: 1. Mild regression in inhomogenous airspace opacification is seen in bilateral lung lower zones with obscuration of bilateral costophrenic angles. 2. Stable prominent bilateral bronchovascular markings and hilar vessels. 3. Stable cardiomegaly. Electronically signed by Nena Sands 10-17-2024 07:57 AM
[2024-10-17] MEDS: ACETAMINOPHEN 325 MG TAB PO PRN (08:01)
--- NOTE | 2024-10-17 10:21 | Hospitalist Progress Note ---
Date of Service October 17, 2024 Assessment & Plan (1) Acute on chronic systolic CHF (congestive heart failure): Plan: Again the etiology of his precipitating factor in this CHF exacerbation is not clear, I do not think that medication noncompliance or dietary indiscretion have been an issue, on the day of admission he was positive for rhinovirus PCR, whether that had anything to do with this presentation, that is possible but clinically patient is doing well with otherwise no respiratory issue. Continue with Lasix 20 mg IV twice daily which resulted it -890 mL balance overnight. Electrolytes will be replaced. Monitor oxygen requirement and try to wean as able. I asked cardiology to review his medications. Chest x-ray today was reviewed by myself showing improvement in bilateral pulmonary edema (2) Acute hypoxemic respiratory failure: Plan: Today patient was taken off oxygen by myself and on room air his oxygen saturation was 90 to 91%, may continue with oxygen supplementation to his comfort but I intend to check two-step home oxygen testing tomorrow. This was as a result of pulmonary edema and seems to be improving. (3) NSVT (nonsustained ventricular tachycardia): Plan: This was observed on at least 2 occasions, less than 10 seconds, replace potassium, serum magnesium was normal. Cardiology was consulted, I have added Lopressor 25 mg twice daily to previous dose of Cardizem. (4) Dyslipidemia: Plan: Continue with home dose statin. (5) Hypertension, essential: Plan: Blood pressure is controlled, continue with Cardizem, I have added metoprolol 25 mg twice daily to get his heart rate better controlled. (6) Chronic atrial fibrillation: Plan: Heart rate is at times elevated, continue with previous home dose of Eliquis and Cardizem CD180 mg daily. I added Lopressor 25 mg twice daily. (7) Class II obesity: Plan: BMI is 38. (8) Hypokalemia: Plan: Potassium was 3.4 and was replaced. Serum magnesium was normal. (9) Rhinovirus: Plan: Doubt if this has any clinical implication at least from the respiratory standpoint but I think with improvement of his radiographic findings after diu resis, in the absence of any other etiology, this could be accounted as a possible precipitating factor. Plan Continue at reduced dose of Lasix 20 mg IV twice daily, monitor intake and output, recheck chest x-ray tomorrow, two-step oxygen testing tomorrow, monitor for any abnormal rhythm, review input by cardiology. Admission and Anticipated Discharge Date Admission Date: October 15, 2024 Subjective patient patient is a very pleasant 84-year-old gentleman with obesity class II, hypertension, dyslipidemia, chronic left bundle branch block, coronary artery disease, chronic systolic CHF with last ejection fraction of 45 to 50% in 2020, also JONAH on nocturnal CPAP and atrial fibrillation on anticoagulation with Eliquis. Patient has normally been able to ambulate indoor and outdoor, he noticed that over the past 2 weeks he was gradually getting more short of breath both during exertion and at rest, he then noticed that his leg started swelling up bilaterally, he wakes up about several times at night to go to urinate which is not changed, he has to prop himself up because of his sleep apnea and he is a side sleeper. He says that he is compliant with his nocturnal CPAP. He was admitted with respiratory distress and found to have bilateral pulmonary edema. Echocardiogram was repeated which in fact showed the same LV function as 2022 with ejection fraction 45 to 50%, there is no additional diastolic dysfunction, interestingly his pulmonary artery pressure has gone up to 50-55, this was normal in 2022. In this regard I recommended him to repeat his sleep study as outpatient to see if he requires any additional CPAP pressure. On examination patient was clinically stable, on room air, his oxygenation was around 90 to 91% saturation, on examination he did seem to respond well to diuresis with improving lower extremity edema, chest x-ray today was reviewed by myself showing much improvement in the bilateral pulmonary edema, his intake and output showed -890 mL balance over past 12 hours. Patient had potassium of 3.4 which was replaced. Continue with current diuresis, I am aware that patient every now and then has a short run of V. tach. I added Lopressor 25 mg twice daily to previous regimen of Cardizem. I spoke with cardiology who will review the case for further recommendation if there is. Physical Exam Physical Exam: VITALS: Reviewed. WEIGHT/BMI reviewed. CV: Irregularly irregular rhythm, no murmur LUNGS: Ongoing bibasilar crackles, no wheeze. ABD: Obese, soft, NT/ND, NBS, no masses or organomegaly. SKIN: Warm, well perfused. No skin rashes or abnormal lesions. EXT: Ongoing improvement in lower extremity edema. Results & Data Results & Data Vital Signs (Past 12 Hours) Vital Signs Temp Pulse Pulse Resp BP BP Pulse Ox 10/17/24 08:12 92 10/17/24 07:50 36.7 C 104 H 20 131/69 91 10/17/24 07:14 102 H 10/17/24 02:25 36.9 C 108 H 16 119/49 L 90 10/17/24 00:13 85 10/17/24 00:08 101 H 10/16/24 23:30 36.9 C 99 H 16 118/67 90 10/16/24 23:22 36.9 C 99 H 16 118/67 90 10/16/24 22:42 O2 Del Method O2 Flow Rate 10/17/24 08:12 Room Air 10/17/24 07:50 Room Air 10/17/24 07:14 10/17/24 02:25 Nasal Cannula 4 10/17/24 00:13 10/17/24 00:08 10/16/24 23:30 Nasal Cannula 4 10/16/24 23:22 10/16/24 22:42 Nasal Cannula 4 Laboratory Results Laboratory Results - last 24 hr 10/17/24 05:42 WBC 8.01 RBC 3.47 L Hgb 10.9 L Hct 33.3 L MCV 96.0 MCH 31.4 MCHC 32.7 RDW Std Deviation 54.6 H RDW Coeff of Mauri 15.6 H Plt Count 226 MPV 10.8 Immature Gran % (Auto) 0.4 Neut % (Auto) 80.1 Lymph % (Auto) 7.2 Gray % (Auto) 10.0 Eos % (Auto) 2.1 Baso % (Auto) 0.2 Neut # (Auto) 6.41 Lymph # (Auto) 0.58 L Gray # (Auto) 0.80 H Eos # (Auto) 0.17 Baso # (Auto) 0.02 Immature Gran # (Auto) 0.03 Sodium 140 Potassium 3.4 L Chloride 100 Carbon Dioxide 31 Anion Gap 9 BUN 34 H Creatinine 1.31 Est Cr Clr Drug Dosing 47.5 eGFR 53.34 BUN/Creatinine Ratio 26.0 H Glucose 100 H Calcium 8.9 Magnesium 2.0 Diagnostic Findings Chest X-Ray 10/17/24 07:00 EXAM: XR chest 1V portable CLINICAL HISTORY: PULMONARY EDEMA, F/U JTF/TGB. TECHNIQUE: An X-ray image of the chest is obtained in 1 AP projection. COMPARISON: Prior study dated 10/15/2024. FINDINGS: Pulmonary Parenchyma: Inhomogenous airspace opacification is seen in bilateral lung lower zones with obscuration of bilateral costophrenic angles more on the left suggestive of pleural effusion with underlying collapse/consolidation. Prominent bilateral bronchovascular markings and hilar vessels No pneumothorax. Heart and Mediastinum: Cardiomegaly. No mediastinal widening or masses. No hilar or mediastinal lymphadenopathy. Bony Thorax: Bony thorax appears intact without fractures or deformities. Thoracic spine spondylotic changes. Soft Tissues: Soft tissues overlying the chest wall are unremarkable. IMPRESSION: 1. Mild regression in inhomogenous airspace opacification is seen in bilateral lung lower zones with obscuration of bilateral costophrenic angles. 2. Stable prominent bilateral bronchovascular markings and hilar vessels. 3. Stable cardiomegaly. Electronically signed by Nena Sands 10-17-2024 07:57 AM Medications Administered Current Inpatient Medications Acetaminophen (Acetaminophen 325 Mg Tab) 650 mg PO Q4H PRN PRN Reason: pain/fever Stop: 11/14/24 09:03 Last Admin: 10/17/24 08:01 Dose: 650 mg Apixaban (Apixaban 5 Mg Tablet) 5 mg PO BID EDNA Stop: 11/14/24 09:03 Last Admin: 10/17/24 08:03 Dose: 5 mg Furosemide (Furosemide Inj 20 Mg/2 Ml Vial) 20 mg IV BID17 EDNA Stop: 11/15/24 08:59 Last Admin: 10/17/24 08:02 Dose: 20 mg Gabapentin (Gabapentin 300 Mg Cap) 300 mg PO BID EDNA Stop: 11/14/24 09:03 Last Admin: 10/17/24 08:03 Dose: 300 mg Magnesium Hydroxide (Magnesium Hydroxide Susp 30 Ml Udc) 30 ml PO Q6H PRN PRN Reason: Constipation Stop: 11/14/24 09:03 Melatonin (Melatonin 3 Mg Tab) 3 mg PO HS PRN PRN Reason: Insomnia Stop: 11/14/24 09:03 Last Admin: 10/15/24 22:52 Dose: 3 mg Metoprolol Tartrate (Metoprolol Tartrate 25 Mg Tab) 25 mg PO BID EDNA Stop: 11/16/24 10:59 Miscellaneous (Alfuzosin ~ Order Awaiting Action) 1 each N/A QS [facility] Stop: 11/14/24 15:59 Last Admin: 10/17/24 07:22 Dose: Not Given Ondansetron HCl (Ondansetron Inj 2 Mg/Ml 2 Ml Vial) 4 mg IV Q6H PRN PRN Reason: Nausea Stop: 11/14/24 09:03 Polyethylene Glycol (Polyethylene (Miralax) 17 Gm Pack) 17 gm PO DAILY PRN PRN Reason: Constipation Stop: 11/14/24 09:03 Pravastatin Sodium (Pravastatin Sod 40 Mg Tab) 40 mg PO BID [facility] Stop: 11/14/24 09:03 Last Admin: 10/17/24 08:03 Dose: 40 mg
[2024-10-17] MEDS: POTASSIUM CHLORIDE CRTAB 20 MEQ TABCR PO STA (11:25)
[2024-10-17] MEDS: METOPROLOL TARTRATE 25 MG TAB PO SCH (11:25)
--- NOTE | 2024-10-17 22:30 | Cardiology Consultation ---
Date of Consultation October 17, 2024 Assessment & Plan (1) Acute heart failure with mildly reduced ejection fraction (HFmrEF, 41-49%): 2. Persistent atrial fibrillation/atrial flutter 3. 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 Moderate mitral regurgitation 5. Moderate pulmonary hypertension 6. Mild to moderate nonobstructive CAD--30% mid LAD 05/2018 7. Chronic left bundle branch block 8. NSVT 9. Hypertension Admitted with acute heart failure in the setting of viral illness, dietary indiscretion. No other clear precipitants. No signs of ACS. Atrial fibrillation has been persistent since July. Has responded to IV diuretics, down 6 L. Breathing comfortably off oxygen, still with residual lower extremity edema. Atrial fibrillation reasonably rate controlled with heart rates in the 90s to 100s. Brief asymptomatic NSVT. No need for additional cardiac testing at this time Agree with continued IV diuresis On discharge home on maintenance diuretic Lasix 20 mg daily. We discussed salt restriction and daily weights Agree with rate control with beta-magdaleno. Okay with resting heart rates in 100s and below. Can discontinue diltiazem (states felt shaky on medication and had transitioned back to amlodipine at home). Continue current Eliquis Possibly resume HCTZ as an outpatient Periodic surveillance imaging of as an outpatient Has scheduled follow-up with cardiology on 10/30 History of Present Illness Attending Physician: Sarah Champion MD History of Present Illness Mr. Schroeder is a very pleasant 84-year-old man known to me from outpatient setting admitted with acute HFmrEF. He has a history of paroxysmal AF on Eliquis, hypertension,, nonobstructive CAD, hyperlipidemia, left bundle branch block and CVI post venous ablation. Presented with 2 weeks of worsening shortness of breath, orthopnea, lower extremity edema and weight gain of almost 15 pounds from last visit 2.5 months ago. Significant edema on chest x-ray, BNP 150. Occurred in the setting of viral illness (rhinovirus) and increase salt intake. Down almost 6 L since admission on twice daily IV Lasix 20 mg. Improved dyspnea, off oxygen, persistent lower extremity edema. Improved congestion on chest x-ray today. BUN/creatinine stable. Over admission has remained in atrial fibrillation/atrial flutter with heart rates in the 90s to 100s. Repeat echo showed EF 45 to 50% with more pronounced inferior wall motion abnormality, now moderate MR and PASP 5055, RA 15. Allergies Allergy/AdvReac Type Severity Reaction Status Date / Time finasteride Allergy Severe SOB Verified 10/15/24 08:56 zolpidem Allergy Severe Facial Verified 10/15/24 08:56 swelling, lip swelling alendronate sodium Allergy Intermediate Hives Verified 10/15/24 08:56 Vwxogsa-ZMC-EqW Reductase Allergy Intermediate Vertigo Verified 10/15/24 08:56 Inhibitor [Qxebynw-Tfh-Oza Reductase Inhibitor] tamsulosin Allergy Intermediate Hives Verified 10/15/24 08:56 adhesive AdvReac Mild "Pulled Verified 10/15/24 08:56 skin" Home Medications Medication Instructions Recorded Confirmed Type celecoxib 200 mg capsule (Celebrex) 200 mg PO QAM 01/20/19 10/15/24 History omeprazole 20 mg tablet,delayed 20 mg PO QAM 01/20/19 10/15/24 History release cholecalciferol (vitamin D3) 25 2,000 units PO QAM 06/13/19 10/15/24 History mcg (1,000 unit) tablet (Vitamin D3) omega 7-hpb-kpk-fish oil 1,000 mg 1 cap PO QAM 06/13/19 10/15/24 History (120 mg-180 mg) capsule (Fish Oil) vitamin E (dl, acetate) 180 mg 400 units PO QAM 12/05/19 10/15/24 History (400 unit) capsule calcium 600 mg (as 1 tab PO QAM 11/09/20 10/15/24 History carbonate)-vitamin D3 5 mcg (200 unit) tablet (Calcium 600 + D(3)) cyanocobalamin (vitamin B-12) 2,500 mcg sublingual QAM 11/09/20 10/15/24 History 2,500 mcg sublingual tablet (Vitamin B-12) ascorbic acid (vitamin C) 100 mg 300 mg PO QAM 12/14/20 10/15/24 History tablet acetaminophen 500 mg tablet 1,000 mg PO BID 05/31/21 10/15/24 History (Tylenol Extra Strength) meclizine 25 mg tablet 25 mg PO BID PRN Vertigo #30 tabs 08/17/23 10/15/24 Rx nystatin 100,000 unit/gram topical 1 applic topical BID groin 12/25/23 10/15/24 Rx powder irritation #60 grams hydrochlorothiazide 25 mg tablet 25 mg PO QAM #90 tabs 02/21/24 10/15/24 Rx potassium chloride 20 mEq 20 meq PO QAM #90 tabs 06/10/24 10/15/24 Rx tablet,extended release alfuzosin 10 mg tablet,extended 10 mg PO QAM 08/04/24 10/15/24 History release 24 hr diltiazem HCl 180 mg 180 mg PO QAM 08/04/24 10/15/24 History capsule,extended release 24 hr (Cardizem CD) vit C 250 mg-vit E 90 mg-zinc 40 1 tab PO BID 08/04/24 10/15/24 History mg-copper 1 bo-ovdnvw-hruicc capsule (PreserVision AREDS-2) tramadol 50 mg tablet 50 mg PO Q8H PRN pain #30 tabs 08/12/24 10/15/24 Rx oxycodone 5 mg tablet 5 mg PO Q4H PRN pain #30 tabs 09/08/24 10/15/24 Rx apixaban 5 mg tablet (Eliquis) 0 mg PO BID 10/15/24 10/15/24 History gabapentin 300 mg capsule 300 mg PO BID 10/15/24 10/15/24 History venlafaxine 37.5 mg tablet 75 mg PO DAILY 10/15/24 10/15/24 History Patient History Medical History History of vertigo Chronic anemia Osteoarthritis Mitral regurgitation Hypertension Hyperlipidemia Gout GERD (gastroesophageal reflux disease) Diverticular disease Chronic venous insufficiency Left bundle branch block Arthritis of right hip History of prostate cancer History of skin cancer Nonobstructive atherosclerosis of coronary artery Sensorineural hearing loss (SNHL) of both ears Obesity Nonobstructive atherosclerosis of coronary artery Atrial fibrillation Sleep apnea [place] Surgical History History of tooth extraction History of esophagogastroduodenoscopy (EGD) S/P sinus surgery Status post excision of lipoma Difficult airway for intubation History of prostate biopsy S/P UPPP (uvulopalatopharyngoplasty) H/O endoscopic sinus surgery Fatty tumor History of brachytherapy Hx of colonoscopy History of cardiac cath Hx of inguinal hernia surgery History of cataract surgery History of bunionectomy H/O total knee replacement S/P repair of hydrocele History of cholecystectomy H/O Spinal surgery Family History Mother Breast cancer Bowel cancer Cancer Father Atherosclerosis Peripheral vascular disease Hypertension Heart disease Sister Breast cancer Bowel cancer Cardiac arrhythmia Stroke Cancer Son No problems noted. Son No problems noted. Daughter Anal cancer Other Hearing loss No family history of adverse response to anesthesia No family history of bleeding disorder Social History Smoking Status: Never smoker Tobacco Type: Cigarettes Second Hand Exposure: No; Do You Dip or Chew Tobacco: No; Hx Alcohol Use: No Hx Substance Use: No Preferred Language: Macedonian Communication Ability: Effective Visual Impairment: No Limitations Hearing Ability: Use of Hearing Aid (Bilateral hearing aids at home;) Media/Instructional Designer Required: No Beliefs That Will Affect Care: None marital status: Current Living Situation: Alone current occupational status: retired current occupation: Worked for [employer] Other Information That Helps Us Care for You: No Feels Safe at Home: Yes Safety Concerns: Feels Safe At This Time Diet: other caffeine: Yes (1 cup/day) during the past year weight has: remained stable Assistive Devices: Walker, Wheelchair and Other Review of Systems Review of Systems: All systems reviewed & are unremarkable except as noted in HPI & below Physical Exam Physical Exam: General: Comfortable HEENT: Sclerae anicteric, Lungs: Scattered wheezing Cardiac: tachycardic, irregularly irregular Vascular: 2+ radial, Abdomen: Soft, nontender Extremities: Well perfused, bilateral 1-2+ ower extremity edema (left greater than right). Neuro: Nonfocal Psych: Alert orient x3, normal affect and mood Results & Data Vital Signs (Past 12 Hours) Vital Signs Temp Pulse Pulse Resp BP Pulse Ox O2 Del Method 10/17/24 20:05 Room Air 10/17/24 19:33 98.8 F 93 H 16 121/57 L 92 Room Air 10/17/24 17:00 86 10/17/24 15:23 97.7 F 89 20 127/73 91 Room Air 10/17/24 11:12 97.7 F 103 H 20 121/68 91 Room Air PG Care Time/CCT Total # of Minutes Spent Total Time Spent with Patient: Total time spent is greater than 50% in coordination of care (as documented) at patient's floor/unit and/or counseling patient: Coding Level of Care Code 95350 OFFICE CONSULT LVL Diagnoses Acute heart failure with mildly reduced ejection fraction (HFmrEF, 41-49%) I50.21
--- NOTE | 2024-10-18 07:38 | XRay Report ---
EXAM: XR chest 1V portable CLINICAL HISTORY: f/u pulmonary edema tgb TECHNIQUE: An X-ray image of the chest is obtained in AP projection. COMPARISON: Prior study dated 10/17/2024. FINDINGS: Pulmonary Parenchyma: Inhomogenous airspace opacification is seen in bilateral lung lower zones with obscuration of bilateral costophrenic angles more on the left suggestive of pleural effusion with underlying collapse/consolidation. Prominent bilateral bronchovascular markings and hilar vessels. No pneumothorax. Heart and Mediastinum: Cardiomegaly. No mediastinal widening or masses. No hilar or mediastinal lymphadenopathy. Bony Thorax: Bony thorax appears intact without fractures or deformities. Thoracic spine spondylotic changes. Soft Tissues: Soft tissues overlying the chest wall are unremarkable. IMPRESSION: 1. Inhomogenous airspace opacification is seen in bilateral lung lower zones with obscuration of bilateral costophrenic angles. 2. Prominent bilateral bronchovascular markings and hilar vessels. 3. Cardiomegaly. 4. No interval changes. Electronically signed by Nena Sands 10-18-2024 07:38 AM
[2024-10-18 07:49] LABS: BUN Creatinine Ratio 31.2 (10-20); Calcium 8.8 mg/dl (8.6-10.3); Creatinine Clr Calc Pharmacy 49.3 ml/min; Magnesium 1.9 mg/dl (1.7-2.4); Potassium 3.5 mmol/L (3.5-5.1)
[2024-10-18 07:57] VITALS: BP 114/65; TEMP 97.9
--- NOTE | 2024-10-18 10:28 | Discharge Summary ---
Discharge Summary Date of Service October 18, 2024 Principal Dx & Hospital Course #1 = Principal Diagnosis (1) Acute on chronic systolic CHF (congestive heart failure): (2) Acute hypoxemic respiratory failure: (3) NSVT (nonsustained ventricular tachycardia): (4) Dyslipidemia: (5) Hypertension, essential: (6) Chronic atrial fibrillation: (7) Class II obesity: (8) Hypokalemia: Potassium was 3.4 and was replaced. Serum magnesium was normal. (9) Rhinovirus: Notes For Next Care Provider Medication Changes From Visit Lasix 40 mg p.o. daily Metoprolol 25 mg twice daily Admission HPI Per Admitting Provider patient patient is a very pleasant 84-year-old gentleman with obesity class II, hypertension, dyslipidemia, chronic left bundle branch block, coronary artery disease, chronic systolic CHF with last ejection fraction of 45 to 50% in 2020, also JONAH on nocturnal CPAP and atrial fibrillation on anticoagulation with Eliquis. Patient has normally been able to ambulate indoor and outdoor, he noticed that over the past 2 weeks he was gradually getting more short of breath both during exertion and at rest, he then noticed that his leg started swelling up bilaterally, he wakes up about several times at night to go to urinate which is not changed, he has to prop himself up because of his sleep apnea and he is a side sleeper. He says that he is compliant with his nocturnal CPAP. He was admitted with respiratory distress and found to have bilateral pulmonary edema. Echocardiogram was repeated which in fact showed the same LV function as 202 with ejection fraction 45 to 50%, there is no additional diastolic dysfunction, interestingly his pulmonary artery pressure has gone up to 50-55, this was normal in 202. In this regard I recommended him to repeat his sleep study as outpatient to see if he requires any additional CPAP pressure. Patient was taken off oxygen on 10/17/2024, he remained stable at baseline, he continued to do well over the past several days with diuresis with IV Lasix, cardiology opinion was sought here and was recommended to go home on Lasix. She was seen and examined today, his swelling has gotten much better, his intake and output showed that he was -385 over the past 12-hour shift. His leg appeared much better today with swelling is limited to the most dependent part of the foot and lower legs, chest x-ray today showed ongoing improvement with near complete resolution of bilateral pulmonary edema, I did a two-step oxygen testing which showed that his oxygen saturation was stable without needing any oxygen supplement. Will proceed with discharging him home on Lasix 40 mg daily in addition to HCTZ 25 mg daily, Cardizem which was apparently in question and patient showed some bad response with will be taken off his medication list and will be replaced with metoprolol 25 mg twice daily based on his tolerance. I told him to check his daily weight and document them so that he can keep track of his fluid retention, he is going to be on 2 g sodium diet and to stay in touch with his cardiology team as outpatient. I also recommended WANDA hose to be worn. Discharge Exam VITALS: Reviewed. WEIGHT/BMI reviewed. CV: Irregularly irregular rhythm, no murmur LUNGS: Ongoing bibasilar crackles, no wheeze. ABD: Obese, soft, NT/ND, NBS, no masses or organomegaly. SKIN: Warm, well perfused. No skin rashes or abnormal lesions. EXT: Swelling is now much improved but it is still there limited to the most dependent part of the lower extremities including foot and lower legs Updated Medication List Medication Instructions Recorded Confirmed Type celecoxib 200 mg capsule (Celebrex) 200 mg PO QAM 01/20/19 10/15/24 History omeprazole 20 mg tablet,delayed 20 mg PO QAM 01/20/19 10/15/24 History release cholecalciferol (vitamin D3) 25 2,000 units PO QAM 06/13/19 10/15/24 History mcg (1,000 unit) tablet (Vitamin D3) omega 5-sii-ynj-fish oil 1,000 mg 1 cap PO QAM 06/13/19 10/15/24 History (120 mg-180 mg) capsule (Fish Oil) vitamin E (dl, acetate) 180 mg 400 units PO QAM 12/05/19 10/15/24 History (400 unit) capsule calcium 600 mg (as 1 tab PO QAM 11/09/20 10/15/24 History carbonate)-vitamin D3 5 mcg (200 unit) tablet (Calcium 600 + D(3)) cyanocobalamin (vitamin B-12) 2,500 mcg sublingual QAM 11/09/20 10/15/24 History 2,500 mcg sublingual tablet (Vitamin B-12) ascorbic acid (vitamin C) 100 mg 300 mg PO QAM 12/14/20 10/15/24 History tablet acetaminophen 500 mg tablet 1,000 mg PO BID 05/31/21 10/15/24 History (Tylenol Extra Strength) meclizine 25 mg tablet 25 mg PO BID PRN Vertigo #30 tabs 08/17/23 10/15/24 Rx nystatin 100,000 unit/gram topical 1 applic topical BID groin 12/25/23 10/15/24 Rx powder irritation #60 grams hydrochlorothiazide 25 mg tablet 25 mg PO QAM #90 tabs 02/21/24 10/15/24 Rx potassium chloride 20 mEq 20 meq PO QAM #90 tabs 06/10/24 10/15/24 Rx tablet,extended release alfuzosin 10 mg tablet,extended 10 mg PO QAM 08/04/24 10/15/24 History release 24 hr vit C 250 mg-vit E 90 mg-zinc 40 1 tab PO BID 08/04/24 10/15/24 History mg-copper 1 [id number]-[id number]-pautls capsule (PreserVision AREDS-2) oxycodone 5 mg tablet 5 mg PO Q4H PRN pain #30 tabs 09/08/24 10/15/24 Rx apixaban 5 mg tablet (Eliquis) 0 mg PO BID 10/15/24 10/15/24 History gabapentin 300 mg capsule 300 mg PO BID 10/15/24 10/15/24 History venlafaxine 37.5 mg tablet 75 mg PO DAILY 10/15/24 10/15/24 History furosemide 40 mg tablet (Lasix) 40 mg PO QAM #30 tabs 10/18/24 Rx metoprolol tartrate 25 mg tablet 25 mg PO BID #60 tabs 10/18/24 Rx pravastatin 40 mg tablet 40 mg PO HS #30 tabs 10/18/24 Rx Hospital Stay Data Consultations 10/15/24 07:08 ED Decision to Admit Stat 10/17/24 10:24 Consult Cardiology Routine Pending Results Patient Have Any Pending Studies at Discharge: No Discharge Instructions Given to Patient (Per Discharging Provider) Continue checking your body weight every day and document to keep track of your fluid retention In case of noticing fluid retention and increasing your weight on 2 successive days, contact your primary care or tunnel miner Total Time Total Time Spent Total Time Spent (In Minutes): More than 35 minutes
[2024-10-18 10:55] VITALS: PULSE 75; RESP 18; O2SAT 90
== END 2024-10-18 11:55 | disposition home or self-care (01) | DRG 291 ==
LOC: ED 05:28 → EDINP 05:28 → 2N 10-16 08:23